=== PATIENT | female | born 1935 | race Caucasian/White ===

== ENCOUNTER 2017-05-30 12:12 | Inpatient (IN) ==
[2017-05-30] MEDS ORDERED: Ipratropium/Albuterol Neb 3 ML IH ONE (12:23)
[2017-05-30] MEDS ORDERED: Ibuprofen 800 MG TABLET PO ONE (12:23)
--- NOTE | 2017-05-30 12:40 | Emergency Department Note ---
Disposition Clinical Impression: Influenza, Shortness of breath Disposition: Admitted As Inpatient Condition: Fair Forms: ED Satisfaction Letter Time of Disposition: 14:09 General Adult HPI - General Chief complaint: ED Fever Stated complaint: SOB Time Seen by Provider: 05/30/17 12:20 Source: patient Limitations: no limitations Nursing Notes Reviewed: Yes Vital Signs Reviewed: Yes - History of Present Illness HPI Narrative: Patient is an 81-year-old female that presents to the emergency department for shortness of breath. She states that she was seen in the emergency department yesterday and was diagnosed with influenza. She states that she thought she was able to go home even though she was offered admission but states she has become more short of breath and had a fever of 101.9. Patient states that she has been coughing up yellow phlegm. She states that she was started on doxycycline yesterday. Patient states that she has been having diarrhea and nausea. Patient states that she called and talked to her fire hose curer who stated that she should come to the emergency department. Pain Scale: 0 - Related Data Previous Rx's Medication Instructions Recorded Benzonatate [Tessalon] 100 mg PO TID PRN #15 capsule 05/29/17 Doxycycline 100 mg PO BID #14 capsule 05/29/17 Allergies Allergy/AdvReac Type Severity Reaction Status Date / Time codeine Allergy See Verified 05/29/17 10:45 Comments moxifloxacin [From Avelox] Allergy See Verified 05/29/17 10:45 Comments sulfamethoxazole Allergy See Verified 05/29/17 10:45 [From Septra] Comments trimethoprim [From Septra] Allergy See Verified 05/29/17 10:45 Comments All systems ED: reviewed and negative except as stated. Constitutional: Reports: fever Respiratory: Reports: cough, dyspnea, sputum production Past Medical History - Past Medical History Medical history: Reports: asthma, pulmonary embolus, other Surgical history: Reports: non-contributory Psychiatric history: Reports: no psych history FRONT LOADER RESIDENTIAL DRIVER history: Reports: no FRONT LOADER RESIDENTIAL DRIVER history - Social History Smoking Status: Never smoker Smokeless Tobacco Status: No Alcohol use: Reports: none Drug use: Reports: none Physical Exam - General Limitations: no limitations General appearance: alert, in no apparent distress - Head Head exam: atraumatic, normocephalic - Eye Eye exam: Present: normal appearance, EOMI - Neck Neck exam: Present: normal inspection, full ROM, trachea midline - Respiratory Respiratory exam: Present: normal lung sounds bilaterally. Absent: respiratory distress, wheezes - Cardiovascular Cardiovascular exam: Present: normal rhythm, tachycardia, normal heart sounds, + S1, +S2 - Abdominal Exam Abdominal exam: Present: soft, Non-Tender, normal bowel sounds - Neurological Exam Neurological exam: Present: alert, oriented X3 - Psychiatric Psychiatric exam: Present: normal affect, normal mood - Skin Skin exam: Present: warm, dry, intact Course Vital Signs Temperature 100.9 F H 05/30/17 12:14 Pulse Rate 122 05/30/17 12:14 Respiratory Rate 26 05/30/17 12:14 Blood Pressure 136/68 05/30/17 12:14 O2 Sat by Pulse Oximetry 86 05/30/17 12:14 Temperature 100.9 F H 05/30/17 12:14 Pulse Rate 122 05/30/17 12:14 Respiratory Rate 26 05/30/17 12:14 Blood Pressure 136/68 05/30/17 12:14 O2 Sat by Pulse Oximetry 95 05/30/17 13:56 Oxygen Delivery Oxygen Delivery Room Air Medical Decision Making - MDM Narrative Medical decision making narrative: Due to the patient presented with shortness of breath and having recently been seen yesterday who ordered a CBC, BMP, BNP, troponin, chest x-ray and EKG. the patient tested positive for influenza yesterday. Patient has had worsening of her white count is now 17.8. Patient had an elevated BNP of 163 troponin was negative. Chest x-ray showed stable bronchiectasis. Due to patient having elevated white count, and respiratory symptoms we have started the patient on azithromycin and ceftriaxone. Due to the patient having an increase in her white count, being influenza positive and having increased shortness of breath the patient will need to be admitted to the hospital for further evaluation and management. I called and spoke to the hospitalist and they have accepted the patient to their service. The patient will be admitted to the hospital at this time. - Medical Records Medical records reviewed: Yes I reviewed the patient's medical records. - Lab Data Lab results reviewed: Yes I reviewed the patient's lab results. Result diagrams: 05/30/17 12:38 05/30/17 12:38 Lab Results 05/30/17 05/30/17 05/30/17 Range/Units 12:38 12:38 12:38 WBC 17.8 H D (4.3-11.1) K/mcL RBC 4.53 (3.82-4.97) M/mcL Hgb 12.6 (11.5-15.4) g/dL Hct 39.7 (35.3-44.9) % MCV 87.6 (83.0-100.0) fL MCH 27.8 L (28.0-33.3) pg MCHC 31.7 (31.6-35.5) g/dL RDW 15.1 H (11.5-14.5) % Plt Count 266 (140-400) K/mcL MPV 9.6 (9.4-12.4) fL Immature Gran % 0.5 (0-4) % Seg Neutrophils % 93.1 % Lymphocytes % 3.7 % Monocytes % 2.5 % Eosinophils % 0.0 % Basophils % 0.2 % Neutrophils # 16.6 H (1.6-8.9) K/mcL Lymphocytes # 0.7 (0.6-4.6) K/mcL Monocytes # 0.5 (0.0-1.3) K/mcL Eosinophils # 0.0 (0.0-0.6) K/mcL Basophils # 0.0 (0.0-0.2) K/mcL Sodium 133 L (136-145) mEq/L Potassium 3.6 (3.5-5.1) mEq/L Chloride 101 (98-107) mEq/L Carbon Dioxide 25 (23-29) mEq/L BUN 10 (8-23) mg/dL Creatinine 0.51 L (0.60-1.20) mg/dL Est GFR ( Amer) > 60 (> 60) Est GFR (Non-Af Amer) > 60 (> 60) BUN/Creatinine Ratio 20 (6-26) Glucose 98 (70-105) mg/dL Calculated Osmolality 275 L (280-300) Lactic Acid (0.5-2.2) mmol/L Calcium 8.8 (8.6-10.3) mg/dL Troponin I < 0.03 (< 0.04) ng/mL B-Natriuretic Peptide (Less than 100) pg/mL Urine Color (Yellow) Urine Clarity (Clear) Urine pH (5.0-8.0) pH Units Ur Specific [place] (1.010-1.025) Urine Protein (Neg-Trace) mg/dL Urine Glucose (UA) (Normal) mg/dL Urine Ketones (Negative) mg/dL Urine Blood (Negative) Urine Nitrite (Negative) Urine Bilirubin (Negative) Urine Urobilinogen (Normal) mg/dL Ur Leukocyte Esterase (Negative) Urine Microscopic RBC (0-3) per hpf Urine Microscopic WBC (0-3) per hpf Ur Squamous Epith Cells (None-Few) per lpf Urine Bacteria (None-Few) per hpf Hyaline Casts (None-Few) per lpf Ur Culture Indicated? (NO) 05/30/17 05/30/17 05/30/17 Range/Units 12:38 12:58 13:06 WBC (4.3-11.1) K/mcL RBC (3.82-4.97) M/mcL Hgb (11.5-15.4) g/dL Hct (35.3-44.9) % MCV (83.0-100.0) fL MCH (28.0-33.3) pg MCHC (31.6-35.5) g/dL RDW (11.5-14.5) % Plt Count (140-400) K/mcL MPV (9.4-12.4) fL Immature Gran % (0-4) % Seg Neutrophils % % Lymphocytes % % Monocytes % % Eosinophils % % Basophils % % Neutrophils # (1.6-8.9) K/mcL Lymphocytes # (0.6-4.6) K/mcL Monocytes # (0.0-1.3) K/mcL Eosinophils # (0.0-0.6) K/mcL Basophils # (0.0-0.2) K/mcL Sodium (136-145) mEq/L Potassium (3.5-5.1) mEq/L Chloride (98-107) mEq/L Carbon Dioxide (23-29) mEq/L BUN (8-23) mg/dL Creatinine (0.60-1.20) mg/dL Est GFR ( Amer) (> 60) Est GFR (Non-Af Amer) (> 60) BUN/Creatinine Ratio (6-26) Glucose (70-105) mg/dL Calculated Osmolality (280-300) Lactic Acid 1.2 (0.5-2.2) mmol/L Calcium (8.6-10.3) mg/dL Troponin I (< 0.04) ng/mL B-Natriuretic Peptide 163 H (Less than 100) pg/mL Urine Color Yellow (Yellow) Urine Clarity Clear (Clear) Urine pH 7.0 (5.0-8.0) pH Units Ur Specific [place] 1.013 (1.010-1.025) Urine Protein Negative (Neg-Trace) mg/dL Urine Glucose (UA) Normal (Normal) mg/dL Urine Ketones Negative (Negative) mg/dL Urine Blood Moderate H (Negative) Urine Nitrite Negative (Negative) Urine Bilirubin Negative (Negative) Urine Urobilinogen Normal (Normal) mg/dL Ur Leukocyte Esterase Negative (Negative) Urine Microscopic RBC 15-30 H (0-3) per hpf Urine Microscopic WBC 0-3 (0-3) per hpf Ur Squamous Epith Cells Many H (None-Few) per lpf Urine Bacteria None Seen (None-Few) per hpf Hyaline Casts None Seen (None-Few) per lpf Ur Culture Indicated? NO (NO) - Radiology Data Radiology results reviewed: Yes I reviewed the patient's radiology results. Chest X-Ray 05/30/17 12:23 IMPRESSION: Stable appearance of bilateral bronchiectasis and nodular infiltrates, comparing with exams dating back to 04/09/2016. Chronic pleural thickening and scarring at the left costophrenic angle. No definite acute abnormality. However, CT would be more sensitive examination. D/ / Bogdan Schuster MD / Bogdan Schuster MD Interpreting Provider: Bogdan Schuster MD - EKG Data EKG #1 EKG attestation: Yes I reviewed and interpreted this EKG. EKG results narrative: EKG shows sinus tachycardia at a rate of 112 bpm, P interval of 140, QRS duration 94, QTC of 370 with a normal to left axis. There is no staining noted on this EKG. It was compared to previous EKG on 05/29/17 which showed sinus tachycardia at 109 bpm
[2017-05-30 12:47] LABS: Basophils % 0.2 %; Hematocrit 39.7 % (35.3-44.9); Hemoglobin 12.6 g/dL (11.5-15.4); Immature Granulocytes % 0.5 % (0-4); Lymphocytes # 0.7 K/mcL (0.6-4.6); Lymphocytes % 3.7 %; Mean Corpuscular HGB Conc 31.7 g/dL (31.6-35.5); Mean Corpuscular Hemoglobin 27.8 pg (28.0-33.3); Mean Corpuscular Volume 87.6 fL (83.0-100.0); Mean Platelet Volume 9.6 fL (9.4-12.4); Monocytes # 0.5 K/mcL (0.0-1.3); Monocytes % 2.5 %; Neutrophils # 16.6 K/mcL (1.6-8.9); Platelet Count 266 K/mcL (140-400); Red Blood Count 4.53 M/mcL (3.82-4.97); Red Cell Distribution Width 15.1 % (11.5-14.5); Segmented Neutrophils % 93.1 %
[2017-05-30] MEDS ORDERED: Azithromycin 500 MG in D5% in Water 250 ML IVPB ONE (12:51)
[2017-05-30 13:03] LABS: BUN/Creatinine Ratio 20 (6-26); Blood Urea Nitrogen 10 mg/dL (8-23); Calcium 8.8 mg/dL (8.6-10.3); Carbon Dioxide 25 mEq/L (23-29); Chloride 101 mEq/L (98-107); Glucose 98 mg/dL (70-105); Osmolality,Calculated 275 (280-300); Potassium 3.6 mEq/L (3.5-5.1); Sodium 133 mEq/L (136-145); eGFR For African Americans > 60 (> 60); eGFR For Non-African Americans > 60 (> 60)
[2017-05-30 13:09] LABS: Bilirubin,Urine Negative (Negative); Blood,Urine Moderate (Negative); Clarity,Urine Clear (Clear); Color,Urine Yellow (Yellow); Glucose,Urine (UA) Normal (Normal); Ketones,Urine Negative (Negative); Leukocyte Esterase,Urine Negative (Negative); Nitrite,Urine Negative (Negative); Protein,Urine Negative (Neg-Trace); Specific Gravity,Urine 1.013 (1.010-1.025); Urobilinogen,Urine Normal (Normal)
[2017-05-30 13:12] LABS: Bacteria,Urine None Seen per hpf (None-Few); Hyaline Casts,Urine None Seen per lpf (None-Few); RBC,Urine 15-30 per hpf (0-3); Squamous Epithelial Cell,Urine Many per lpf (None-Few); WBC,Urine 0-3 per hpf (0-3)
[2017-05-30] MEDS ORDERED: methylPREDNISolone 125 MG/2 ML VIAL IVP ONE (13:41)
--- NOTE | 2017-05-30 13:43 | Emergency Department Note ---
START Narrative - START START: I examined this patient and my medical decision-making was reviewed with the Resident Physician. I agree with the documented findings, disposition and treatment plan as described except to the extent set forth below. 81-year-old female presents emergency room for shortness of breath. Patient was seen yesterday and diagnosed with flu. They wanted to admit the patient yesterday for hypoxia but she chose to go home. She returns today for worsening dyspnea. She does have a low-grade fever here likely secondary to her influenza as well as her infection in her lungs. I feel that her chest x- ray appeared to be worsening today as compared to yesterday. We gave her Rocephin and Zithromax that she had a fluoroquinolone allergy. Also give her steroids. Breathing treatments. Patient needs to be admitted as she is felt outpatient therapy.
[2017-05-30] MEDS ORDERED: Benzonatate 100 MG CAPSULE PO PRN (16:20)
[2017-05-30] MEDS ORDERED: Naloxone 0.4 MG/ML INJ IVP PRN (16:21)
--- NOTE | 2017-05-30 16:28 | Internal Med History&Physical ---
<Vito Rock - Last Filed: 05/30/17 16:48> Date of Encounter: 05/30/17 Time of Encounter: 16:26 Assessment and Plan (1) Sepsis Current visit: Yes Status: Acute 3 SIRS criteria met; tachycardia, tachypnea, leukocytosis. Bronchiectasis per chest x-ray, influenza A positive Hemodynamically stable, Sats 96% on 2LNC with mild SOB -Start emperic ATB therapy, Vanc, Levaquin, Zosyn -Hold tamiflu as symptom onset was Tuesday; no Tamiflu given in ED yesterday -Gentle IV rehydration; does not appear to be in shock 0.9% NS at 60ml/hr -Xopenex INH -Solumedrol 40mg Q8hr -CBCD, BMP in the am -Blood cultures sent- follow and adjust ATB as appropriate -Continue supportive care of influenza A -Start tamiflu now per CDC recommendations Qualifiers: Sepsis type: sepsis due to unspecified organism Qualified Code(s): A41.9 - Sepsis, unspecified organism (2) Bronchiectasis Current visit: Yes Status: Acute see plan above Qualifiers: Bronchiectasis type: with acute exacerbation Qualified Code(s): J47.1 - Bronchiectasis with (acute) exacerbation (3) Influenza A Current visit: Yes Status: Acute Presents with dyspnea, nonproductive cough tachypnea, fever and fatigue. Was at [facility] ED yesterday and diagnosed with influenza A. She was adamant about going home at that time however, returns today with increasing shortness of breath and fever. She reports symptoms onset Tuesday. -Continue supportive care at this time -Begin Tamiflu now as recommended per CDC -0.9% NS at 60ml/hr -Ibuprofen for fevers/pain -Continuous tele and spo2 monitoring (4) Shortness of breath Current visit: Yes Status: Acute see plan above (5) DVT prophylaxis Current visit: Yes Status: Acute Heparin 5000 units SC BID Internal Medicine - H&P: HPI Chief complaint: dyspnea, fatigue, flu-a positive Admitted From: Home Plans for Post Hospital Care: Home History of present illness: Ms. Johnson is a 81 year old female with a PMH of asthma and bronchiectasis presents to the emergency department today for dyspnea. She states that she was seen yesterday at [facility] and diagnosed influenza A. She thought that she was able to go home and did not need admission at that time. However, she returns today with increasing shortness of breath and a fever of 101.9. She states that last night she began to cough more frequently and was coughing up yellow phlegm. She admits to fever, fatigue, cough. Denies chills, rigors, nausea, vomiting, diarrhea, abdominal pain. Past Med Surg Social Fam HX - Past Medical History Medical history: asthma, pulmonary embolus, other Psychiatric history: no psych history - Past Surgical History Surgical History: non-contributory - Social History Smoking Status: Never smoker Smokeless Tobacco Status: No Alcohol use: none Drug use: none - Additional Family History Additional family history: Noncontributory Internal Medicine - H&P: Meds Benzonatate [Tessalon] 100 mg PO TID PRN #15 capsule 05/29/17 [Rx] Doxycycline 100 mg PO BID #14 capsule 05/29/17 [Rx] Albuterol Neb [AccuNeb] 1.25 mg IH DAILY PRN 05/30/17 [History] Albuterol Sulfate [Proair Hfa] 1 puff IH DAILY PRN 05/30/17 [History] Azithromycin [Azithromycin] 1 tab PO AD 05/30/17 [History] Fluticasone/Salmeterol [Advair 250-50 Diskus] 1 puff IH DAILY 05/30/17 [History] predniSONE [PredniSONE] 20 mg PO BID 05/30/17 [History] 3 Allergy/AdvReac Type Severity Reaction Status Date / Time codeine Allergy See Verified 05/29/17 10:45 Comments moxifloxacin [From Avelox] Allergy See Verified 05/29/17 10:45 Comments sulfamethoxazole Allergy See Verified 05/29/17 10:45 [From Septra] Comments trimethoprim [From Septra] Allergy See Verified 05/29/17 10:45 Comments All Systems PM: A 10-system review of systems was performed and is negative for pertinent findings except as documented above in the HPI. - Constitutional Constitutional: as per HPI, fatigue, fever(s), no chills - EENT Eyes: as per HPI - Cardiovascular Cardiovascular ROS IM: dyspnea, dyspnea on exertion, no chest pain, no diaphoresis, no edema, no irregular heart rhythm, no lightheadedness, no palpitations, no syncope - Respiratory Respiratory: as per HPI, cough, dyspnea, dyspnea on exertion, no hemoptysis - Gastrointestinal Gastrointestinal: no abdominal pain, no diarrhea, no hematemesis, no hematochezia, no melena, no nausea, no vomiting - Genitourinary Genitourinary: no change in urinary stream, no dysuria, no flank pain, no hematuria - Musculoskeletal Musculoskeletal ROS IM: no arthralgias, no myalgias, no numbness, no tingling - Integumentary Integumentary IM: no rash, no unusual bruising - Neurological Neurological ROS: no confusion, no convulsions, no focal weakness, no numbness, no tingling, no tremor(s) - Hematologic/Lymphatic Hematologic/Lymphatic: no easy bruising - Constitutional Vitals: Temp Pulse Resp BP Pulse Ox 97.9 F 100 16 115/62 94 05/30/17 15:21 05/30/17 15:21 05/30/17 15:21 05/30/17 15:21 05/30/17 15:21 General appearance: Present: cooperative, mild distress, A&O X 3, answers questions appropriately - Head Head exam: Present: atraumatic, normocephalic - Eye Eye exam: Present: PERRL, conjuntiva pink, sclera anicteric Pupils: Present: PERRL - Neck Neck exam general surgery: Present: supple, trachea midline. Absent: lymphadenopathy - Respiratory Respiratory exam: Present: decreased breath sounds, CTAB, wheezes (I&E ), tachypnea (shallow without accessory use; on 2LNC in no distress). Absent: accessory muscle use, rales, rhonchi - Cardiovascular Cardiovascular exam: Present: RRR, +S1, +S2. Absent: bradycardia, diastolic murmur, distant heart sounds, gallop, irregular rhythm, JVD, rubs, systolic murmur - GI/Abdominal GI/Abdominal exam: Present: normal bowel sounds, soft, no peritoneal signs. Absent: distended, tenderness - Extremities Exam Extremities exam: Present: warm, radial pulses palpable and symmetrical. Absent : calf tenderness, cyanotic, pedal edema - Neurological Exam Neurological exam: Present: CN II-XII intact, oriented X3, no focal deficits. Absent: pronater drift, facial droop, speech deficit - Skin Skin exam: Present: dry, intact Internal Med - H&P Results - Labs CBC & Chem 7: 05/30/17 12:38 05/30/17 12:38 - Diagnostic Studies Chest x-ray Status: image reviewed by me Additional comments: Stable appearance of bilateral bronchiectasis and nodular infiltrates, comparing with exams dating back to 04/09/2016. Chronic pleural thickening and scarring at the left costophrenic angle. No definite acute abnormality. However, CT would be more sensitive examination. <Alfredo Guillen P - Last Filed: 06/02/17 12:21> Date of Encounter: 06/02/17 Internal Medicine - H&P: HPI History of present illness: Ms. Johnson is a 81 year old female Past Med Surg Social Fam HX - Family History Mother Hx Family Cardiac Disorders: Yes (mi cva) Sister Living Status: Still Living Hx Family Cardiac Disorders: Yes (htn) All Systems PM: A 10-system review of systems was performed and is negative for pertinent findings except as documented above in the HPI. - Constitutional Vitals: Temp Pulse Resp BP Pulse Ox 98.8 F 86 18 174/66 90 06/02/17 10:49 06/02/17 10:49 06/02/17 10:49 06/02/17 10:49 06/02/17 10:49 Internal Med - H&P Results - Labs CBC & Chem 7: 06/02/17 06:48 06/02/17 06:48 Labs: Short CBC 06/02/17 Range/Units 06:48 WBC 14.5 H (4.3-11.1) K/mcL Hgb 11.7 (11.5-15.4) g/dL Hct 36.5 (35.3-44.9) % Plt Count 254 (140-400) K/mcL Neutrophils # 13.7 H (1.6-8.9) K/mcL BMP 06/02/17 06:48 Sodium 142 Potassium 3.4 L Chloride 105 Carbon Dioxide 31 H BUN 7 L Creatinine 0.46 L Glucose 141 H Calcium 8.7 - Impressions ITS Impressions Chest CTA 06/01/17 17:53 IMPRESSION: 1. No evidence of pulmonary embolism or aortic dissection. 2. Continued evidence of extensive bronchiectasis, the distribution and severity of which appears similar when compared to the previous exam. 3. The only notable changed when compared to the previous exam, is interval development of more numerable centrilobular punctate nodules identified within the lower lungs bilaterally, suggesting inflammatory or infectious bronchiolitis. D/ / Zelalem Miller MD / Zelalem Miller MD Interpreting Provider: Zelalem Miller MD Echocardiogram 06/02/17 08:51 Impressions: LVEF 65%. Normal LV chamber size, wall thickness and function. Mild left ventricular diastolic dysfunction. Normal right ventricular structure and function. Mild pulmonary hypertension. Estimated RVSP is 39 mmHg. No significant valvular dysfunction. Left Ventricular Wall Motion: Rest Echo Findings All wall segments showed normal motion. Findings: Study Quality * Technically adequate exam. ECG Findings * Normal sinus rhythm. Left Ventricle * LVEF 65%. * Normal LV chamber size, wall thickness and function. * Mild left ventricular diastolic dysfunction. Right Ventricle * Normal right ventricular structure and function. Left Atrium * Mildly dilated left atrium. Right Atrium * Normal right atrial size. Interatrial Septum * Interatrial septum not well evaluated. Aortic Valve * Trileaflet aortic valve. * Mildly calcified aortic valve leaflets. * No aortic regurgitation. * No aortic stenosis. Mitral Valve * Mild posterior mitral annular calcification. Normal mitral valve function. * No mitral stenosis. * No mitral regurgitation. Tricuspid Valve * Normal tricuspid valve structure and function. * Trace tricuspid regurgitation. * Mild pulmonary hypertension. * Estimated RVSP is 39 mmHg. * Estimated RA pressure is 5 mmHg. Pulmonic Valve * Normal pulmonic valve structure and function. * Trace pulmonic regurgitation. Aorta * Normally sized aortic root. Pericardium * The pericardium appears normal. IVC * Normal IVC dimensions and inspiratory collapse. Pulmonary Artery * Normal visualized portions of the main pulmonary artery. - Attending Attestation I examined this patient and my medical decision-making was reviewed with the Resident Physician/SELF STORAGE MANAGER. I agree with the documented findings, disposition and treatment plan as described except to the extent set forth below.
[2017-05-30] MEDS ORDERED: Vancomycin 750 MG in D5% in Water 250 ML IVPB SCH (17:00)
[2017-05-30] MEDS ORDERED: Piperacillin/Tazobactam 3.375 GM/200 ML BAG IVPB SCH (18:00)
[2017-05-30] MEDS: 0.9 % Sodium Chloride 1,000 ML IVC SCH (20:22)
[2017-05-30] MEDS: Vancomycin 750 MG in D5% in Water 250 ML IVPB SCH (20:23)
[2017-05-30] MEDS: *HR* Heparin 5,000 UNIT/ML VIAL SQ SCH (20:23)
[2017-05-30] MEDS: Piperacillin/Tazobactam 3.375 GM/200 ML BAG IVPB SCH (22:15)
[2017-05-30] MEDS: Levalbuterol Neb 1.25 MG/3 ML IH SCH (22:58)
[2017-05-31] MEDS: MethylPREDNISolone 40 MG/ML VIAL IVP SCH ×3 (00:04→18:12)
[2017-05-31] MEDS: Levalbuterol Neb 1.25 MG/3 ML IH SCH ×4 (04:14→22:21)
[2017-05-31] MEDS: Piperacillin/Tazobactam 3.375 GM/200 ML BAG IVPB SCH ×3 (05:10→19:55)
[2017-05-31] MEDS: *HR* Heparin 5,000 UNIT/ML VIAL SQ SCH ×2 (05:10→18:12)
[2017-05-31 05:48] LABS: Basophils % 0.1 %; Hematocrit 39.3 % (35.3-44.9); Hemoglobin 12.5 g/dL (11.5-15.4); Immature Granulocytes % 0.4 % (0-4); Lymphocytes # 0.3 K/mcL (0.6-4.6); Lymphocytes % 1.9 %; Mean Corpuscular HGB Conc 31.8 g/dL (31.6-35.5); Mean Corpuscular Volume 87.9 fL (83.0-100.0); Mean Platelet Volume 9.9 fL (9.4-12.4); Monocytes # 0.1 K/mcL (0.0-1.3); Monocytes % 0.9 %; Neutrophils # 15.4 K/mcL (1.6-8.9); Platelet Count 239 K/mcL (140-400); Red Blood Count 4.47 M/mcL (3.82-4.97); Red Cell Distribution Width 14.9 % (11.5-14.5); Segmented Neutrophils % 96.7 %
[2017-05-31 06:05] LABS: BUN/Creatinine Ratio 23 (6-26); Blood Urea Nitrogen 12 mg/dL (8-23); Calcium 8.8 mg/dL (8.6-10.3); Carbon Dioxide 29 mEq/L (23-29); Chloride 103 mEq/L (98-107); Glucose 129 mg/dL (70-105); Osmolality,Calculated 291 (280-300); Potassium 3.7 mEq/L (3.5-5.1); Sodium 140 mEq/L (136-145); eGFR For African Americans > 60 (> 60); eGFR For Non-African Americans > 60 (> 60)
--- NOTE | 2017-05-31 07:36 | Electrocardiograph Report ---
[facility] Test Date: 2017-05-30 Pat Name: Jacques Johnson Department: [id number] Room: 3B49 Gender: F [employer]p [employer]: : 1935 Requested By: Nate Herrera Order Number: [id number] Reading MD: Karla Fan DO Measurements Intervals [place] Rate: 112 P: 152 [place]: 142 QRS: 21 QRSD: 94 T: 147 QT: 304 QTc: 370 Interpretive Statements ECTOPIC ATRIAL TACHYCARDIA LEFT ATRIAL ENLARGEMENT [-0.15mV P WAVE IN V1/V2] LOW QRS VOLTAGE IN EXTREMITY LEADS [QRS DEFLECTION < 0.5 mV IN LIMB LEADS] POSSIBLE ANTERIOR MYOCARDIAL INFARCTION [30 ms Q WAVE IN V3/V4, OR R < 0.2 mV IN V4], OF INDETERMINATE AGE Electronically Signed On 05-31-2017 7:34:12 EST by Karla Fan DO
[2017-05-31] MEDS: Vancomycin 750 MG in D5% in Water 250 ML IVPB SCH (08:08)
[2017-05-31] MEDS: Levofloxacin 500 MG/100 ML 500 MG/100 ML BAG IVPB SCH (08:09)
--- NOTE | 2017-05-31 15:39 | Internal Med Progress Note ---
Date of Encounter: 05/31/17 Time of Encounter: 15:37 - Assessment and plan (1) Sepsis Current Visit: Yes Status: Acute Assessment and plan: 3 SIRS criteria met; tachycardia, tachypnea, leukocytosis. Bronchiectasis per chest x-ray, influenza A positive Hemodynamically stable, Sats 96% on 2LNC with mild SOB -Continue emperic ATB therapy, Vanc, Levaquin, Zosyn -Gentle IV rehydration; does not appear to be in shock 0.9% NS at 60ml/hr - HOLD -Xopenex INH -Solumedrol 40mg Q8hr -Blood cultures sent- follow and adjust ATB as appropriate -Hold IVF for now. -Continue supportive care of influenza A -Continue tamiflu now per CDC recommendations Qualifiers: Sepsis type: sepsis due to unspecified organism Qualified Code(s): A41.9 - Sepsis, unspecified organism (2) Influenza A Current Visit: Yes Status: Acute Assessment and plan: Presents with dyspnea, nonproductive cough tachypnea, fever and fatigue. Was at [facility] ED yesterday and diagnosed with influenza A. She was adamant about going home at that time however, returns today with increasing shortness of breath and fever. She reports symptoms onset Tuesday. -Continue supportive care at this time -Begin Tamiflu now as recommended per CDC -0.9% NS at 60ml/hr -Ibuprofen for fevers/pain -Continuous tele and spo2 monitoring (3) Bronchiectasis Current Visit: Yes Status: Acute Qualifiers: Bronchiectasis type: with acute exacerbation Qualified Code(s): J47.1 - Bronchiectasis with (acute) exacerbation (4) Shortness of breath Current Visit: Yes Status: Acute (5) DVT prophylaxis Current Visit: Yes Status: Acute - Subjective Interval history: Patient states she is feeling fine. She denies any SOB, but she is more active at home. She denies fevers/chills, n.v, headache, rigors. - Constitutional Vitals: Temp Pulse Resp BP Pulse Ox 99.1 F 89 16 137/66 90 05/31/17 15:10 05/31/17 15:10 05/31/17 15:10 05/31/17 15:10 05/31/17 15:10 General appearance: Present: cooperative, mild distress, A&O X 3, answers questions appropriately Exam: - Head Head exam: Present: atraumatic, normocephalic - Eye Eye exam: Present: PERRL, conjuntiva pink, sclera anicteric Pupils: Present: PERRL - Neck Neck exam general surgery: Present: supple, trachea midline. Absent: lymphadenopathy - Respiratory Respiratory exam: Present: decreased breath sounds, CTAB, wheezes (expiratory ) . Course breath sounds in lower lung cano Absent: accessory muscle use, rhonchi, no tachypnea - Cardiovascular Cardiovascular exam: Present: RRR, +S1, +S2. Absent: bradycardia, diastolic murmur, distant heart sounds, gallop, irregular rhythm, JVD, rubs, systolic murmur - GI/Abdominal GI/Abdominal exam: Present: normal bowel sounds, soft, no peritoneal signs. Absent: distended, tenderness - Extremities Exam Extremities exam: Present: warm, radial pulses palpable and symmetrical. Absent : calf tenderness, cyanotic, pedal edema - Neurological Exam Neurological exam: Present: CN II-XII intact, oriented X3, no focal deficits. Absent: pronater drift, facial droop, speech deficit - Skin Skin exam: Present: dry, intact Internal Medicine: Result - Labs CBC & Chem 7: 05/31/17 05:24 05/31/17 05:24 Labs: Short CBC 05/31/17 Range/Units 05:24 WBC 15.9 H (4.3-11.1) K/mcL Hgb 12.5 (11.5-15.4) g/dL Hct 39.3 (35.3-44.9) % Plt Count 239 (140-400) K/mcL Neutrophils # 15.4 H (1.6-8.9) K/mcL BMP 05/31/17 05:24 Sodium 140 Potassium 3.7 Chloride 103 Carbon Dioxide 29 BUN 12 Creatinine 0.52 L Glucose 129 H Calcium 8.8 Consult Discharge Plan - Plan Referrals: Chencho Lopez DO [Primary Care Provider] -
[2017-05-31] MEDS: Ibuprofen 400 MG TABLET PO PRN (19:53)
[2017-05-31] MEDS: Oseltamivir Phosphate 30 MG CAPSULE PO SCH (19:54)
[2017-06-01] MEDS: MethylPREDNISolone 40 MG/ML VIAL IVP SCH ×4 (00:29→23:46)
[2017-06-01] MEDS: Levalbuterol Neb 1.25 MG/3 ML IH SCH ×4 (03:47→21:01)
[2017-06-01] MEDS: 0.9 % Sodium Chloride 1,000 ML IVC SCH (04:09)
[2017-06-01] MEDS: Piperacillin/Tazobactam 3.375 GM/200 ML BAG IVPB SCH ×3 (04:43→19:49)
[2017-06-01] MEDS: *HR* Heparin 5,000 UNIT/ML VIAL SQ SCH (04:43)
[2017-06-01 07:18] LABS: Hematocrit 37.2 % (35.3-44.9); Hemoglobin 11.8 g/dL (11.5-15.4); Mean Corpuscular HGB Conc 31.7 g/dL (31.6-35.5); Mean Corpuscular Hemoglobin 28.2 pg (28.0-33.3); Mean Corpuscular Volume 88.8 fL (83.0-100.0); Mean Platelet Volume 10.4 fL (9.4-12.4); Platelet Count 262 K/mcL (140-400); Red Blood Count 4.19 M/mcL (3.82-4.97); Red Cell Distribution Width 15.3 % (11.5-14.5)
[2017-06-01 07:40] LABS: BUN/Creatinine Ratio 21 (6-26); Blood Urea Nitrogen 11 mg/dL (8-23); Calcium 8.7 mg/dL (8.6-10.3); Carbon Dioxide 30 mEq/L (23-29); Chloride 107 mEq/L (98-107); Glucose 147 mg/dL (70-105); Osmolality,Calculated 296 (280-300); Potassium 3.4 mEq/L (3.5-5.1); Sodium 142 mEq/L (136-145); eGFR For African Americans > 60 (> 60); eGFR For Non-African Americans > 60 (> 60)
[2017-06-01] MEDS: Vancomycin 750 MG in D5% in Water 250 ML IVPB SCH (07:50)
[2017-06-01] MEDS: Oseltamivir Phosphate 30 MG CAPSULE PO SCH ×2 (07:51→19:51)
[2017-06-01 07:58] LABS: Neutrophils # 16.1 K/mcL (1.6-8.9); Platelet Estimate Normal (Normal)
[2017-06-01] MEDS: Levofloxacin 500 MG/100 ML 500 MG/100 ML BAG IVPB SCH (09:08)
--- NOTE | 2017-06-01 17:49 | Internal Med Progress Note ---
Date of Encounter: 06/01/17 Time of Encounter: 17:47 - Assessment and plan (1) Sepsis Current Visit: Yes Status: Acute Assessment and plan: 3 SIRS criteria met; tachycardia, tachypnea, leukocytosis. Bronchiectasis per chest x-ray, influenza A positive Hemodynamically stable, Sats 96% on 2LNC with mild SOB -Continue emperic ATB therapy, Vanc, Levaquin, Zosyn -Gentle IV rehydration; does not appear to be in shock 0.9% NS at 60ml/hr - HOLD -Xopenex INH -Solumedrol 40mg Q8hr -Blood cultures sent- follow and adjust ATB as appropriate -Hold IVF for now. -Continue supportive care of influenza A -Continue tamiflu now per CDC recommendations Qualifiers: Sepsis type: sepsis due to unspecified organism Qualified Code(s): A41.9 - Sepsis, unspecified organism (2) Acute respiratory failure with hypoxia Current Visit: Yes Status: Acute Assessment and plan: Continue Abx therapy. Wean O2 as tolerated. Follow-up respiratory studies. Will obtain CTA chest since she has little improvement, will need to rule out PE , also need better chest imaging.. (3) Influenza A Current Visit: Yes Status: Acute Assessment and plan: Presents with dyspnea, nonproductive cough tachypnea, fever and fatigue. Was at [facility] ED yesterday and diagnosed with influenza A. She was adamant about going home at that time however, returns today with increasing shortness of breath and fever. She reports symptoms onset Tuesday. -Continue supportive care at this time -Begin Tamiflu now as recommended per CDC -0.9% NS at 60ml/hr -Ibuprofen for fevers/pain -Continuous tele and spo2 monitoring (4) Bronchiectasis Current Visit: Yes Status: Acute Qualifiers: Bronchiectasis type: with acute exacerbation Qualified Code(s): J47.1 - Bronchiectasis with (acute) exacerbation (5) Shortness of breath Current Visit: Yes Status: Acute Assessment and plan: Wean O2 as tolerated. (6) DVT prophylaxis Current Visit: Yes Status: Acute Assessment and plan: Stop heparin, change to SCD because of bleeding at SQ heparin injection site. - Subjective Interval history: Patient states she is feeling fine. She denies any SOB, but she is more active at home. She denies fevers/chills, n.v, headache, rigors. - Constitutional Vitals: Temp Pulse Resp BP Pulse Ox 98.2 F 82 16 143/69 96 06/01/17 15:42 06/01/17 15:42 06/01/17 17:16 06/01/17 15:42 06/01/17 17:16 General appearance: Present: cooperative, mild distress, A&O X 3, answers questions appropriately Exam: - Head Head exam: Present: atraumatic, normocephalic - Eye Eye exam: Present: PERRL, conjuntiva pink, sclera anicteric Pupils: Present: PERRL - Neck Neck exam general surgery: Present: supple, trachea midline. Absent: lymphadenopathy - Respiratory Respiratory exam: Present: decreased breath sounds, CTAB, wheezes (expiratory ) . Course breath sounds in lower lung cano Absent: accessory muscle use, rhonchi, no tachypnea - Cardiovascular Cardiovascular exam: Present: RRR, +S1, +S2. Absent: bradycardia, diastolic murmur, distant heart sounds, gallop, irregular rhythm, JVD, rubs, systolic murmur - GI/Abdominal GI/Abdominal exam: Present: normal bowel sounds, soft, no peritoneal signs. Absent: distended, tenderness - Extremities Exam Extremities exam: Present: warm, radial pulses palpable and symmetrical. Absent : calf tenderness, cyanotic, pedal edema - Neurological Exam Neurological exam: Present: CN II-XII intact, oriented X3, no focal deficits. Absent: pronater drift, facial droop, speech deficit - Skin Skin exam: Present: dry, intact Internal Medicine: Result - Labs CBC & Chem 7: 06/01/17 05:41 06/01/17 05:41 Labs: Short CBC 06/01/17 Range/Units 05:41 WBC 16.1 H (4.3-11.1) K/mcL Hgb 11.8 (11.5-15.4) g/dL Hct 37.2 (35.3-44.9) % Plt Count 262 (140-400) K/mcL Neutrophils # 16.1 H (1.6-8.9) K/mcL BMP 06/01/17 05:41 Sodium 142 Potassium 3.4 L Chloride 107 Carbon Dioxide 30 H BUN 11 Creatinine 0.52 L Glucose 147 H Calcium 8.7 - VTE Documentation of Mechanical Device: Intermittent pneumatic compression device Consult Discharge Plan - Plan Referrals: Chencho Lopez DO [Primary Care Provider] -
[2017-06-01] MEDS: Ibuprofen 400 MG TABLET PO PRN (19:50)
[2017-06-02] MEDS: Levalbuterol Neb 1.25 MG/3 ML IH SCH ×4 (03:48→22:20)
[2017-06-02] MEDS: Piperacillin/Tazobactam 3.375 GM/200 ML BAG IVPB SCH ×3 (06:22→20:32)
[2017-06-02 07:15] LABS: Basophils % 0.1 %; Hematocrit 36.5 % (35.3-44.9); Hemoglobin 11.7 g/dL (11.5-15.4); Immature Granulocytes % 0.5 % (0-4); Lymphocytes # 0.3 K/mcL (0.6-4.6); Lymphocytes % 2.1 %; Mean Corpuscular HGB Conc 32.1 g/dL (31.6-35.5); Mean Corpuscular Hemoglobin 28.3 pg (28.0-33.3); Mean Corpuscular Volume 88.4 fL (83.0-100.0); Mean Platelet Volume 9.9 fL (9.4-12.4); Monocytes # 0.4 K/mcL (0.0-1.3); Monocytes % 2.9 %; Neutrophils # 13.7 K/mcL (1.6-8.9); Platelet Count 254 K/mcL (140-400); Red Blood Count 4.13 M/mcL (3.82-4.97); Red Cell Distribution Width 15.2 % (11.5-14.5); Segmented Neutrophils % 94.4 %
[2017-06-02 08:02] LABS: BUN/Creatinine Ratio 15 (6-26); Blood Urea Nitrogen 7 mg/dL (8-23); Calcium 8.7 mg/dL (8.6-10.3); Carbon Dioxide 31 mEq/L (23-29); Chloride 105 mEq/L (98-107); Glucose 141 mg/dL (70-105); Osmolality,Calculated 294 (280-300); Potassium 3.4 mEq/L (3.5-5.1); Sodium 142 mEq/L (136-145); eGFR For African Americans > 60 (> 60); eGFR For Non-African Americans > 60 (> 60)
[2017-06-02] MEDS: Vancomycin 750 MG in D5% in Water 250 ML IVPB SCH ×2 (08:35→17:58)
[2017-06-02] MEDS: MethylPREDNISolone 40 MG/ML VIAL IVP SCH ×3 (08:35→23:35)
[2017-06-02] MEDS: Oseltamivir Phosphate 30 MG CAPSULE PO SCH ×2 (08:36→20:34)
[2017-06-02] MEDS ORDERED: Potassium Chloride Elixir 20 MEQ/15 ML UDC PO ONE (08:47)
[2017-06-02] MEDS ORDERED: Acetylcysteine 10% 2 ML INHSOL IH ONE (08:48)
[2017-06-02] MEDS ORDERED: Furosemide 20 MG/2 ML VIAL IVP ONE (08:50)
[2017-06-02] MEDS: Levofloxacin 500 MG/100 ML 500 MG/100 ML BAG IVPB SCH (11:58)
--- NOTE | 2017-06-02 12:16 | Internal Med Progress Note ---
Date of Encounter: 06/02/17 Time of Encounter: 12:14 - Assessment and plan (1) Acute respiratory failure with hypoxia Current Visit: Yes Status: Acute Assessment and plan: CTA showed no PE, extensive bronchiectasis which has been noted on prior imaging , mucus plugging and increase in centrilobular punctate nodules in lower lobes. She received 2.9 IVF since admission, may have fluid overload component. Echocardiogram showed normal LVEF, mild pulmonary hypertension, mild LV diastolic dysfunction. She states she has history of hemoptysis and is known to to Pulmonology group. Continue emperic antibiotic therapy. Levaquin used to cover atypicals, will switch to azithromycin to avoid nephrotoxicity. Wean O2 as tolerated One dose of IV Lasix 20 mg today, and monitor I/O. Follow-up respiratory cultures. Mucinex and continue aerosol treatment for mucus plugging. Consult Pulmonology (2) Sepsis Current Visit: Yes Status: Acute Assessment and plan: 3 SIRS criteria met; tachycardia, tachypnea, leukocytosis. Bronchiectasis per chest x-ray, influenza A positive -Continue emperic ATB therapy, Vanc, Levaquin, Zosyn -Xopenex INH -Solumedrol 40mg Q8hr -Blood cultures sent- follow and adjust ATB as appropriate -Continue supportive care of influenza A -Continue tamiflu now per CDC recommendations Qualifiers: Sepsis type: sepsis due to unspecified organism Qualified Code(s): A41.9 - Sepsis, unspecified organism (3) Influenza A Current Visit: Yes Status: Acute Assessment and plan: Presents with dyspnea, nonproductive cough tachypnea, fever and fatigue. Was at [facility] ED yesterday and diagnosed with influenza A. She was adamant about going home at that time however, returns today with increasing shortness of breath and fever. She reports symptoms onset Tuesday. -Continue supportive care at this time -Tamiflu as recommended per CDC -Ibuprofen for fevers/pain -Continuous tele and spo2 monitoring (4) Bronchiectasis Current Visit: Yes Status: Acute Assessment and plan: Consult Pulmonology Qualifiers: Bronchiectasis type: with acute exacerbation Qualified Code(s): J47.1 - Bronchiectasis with (acute) exacerbation (5) DVT prophylaxis Current Visit: Yes Status: Acute Assessment and plan: Stop heparin, change to SCD because of bleeding at SQ heparin injection site. - Subjective Interval history: Attempted to wean patient O2 overnight she became dyspneic. Supplemental O2 resumed. - Constitutional Vitals: Temp Pulse Resp BP Pulse Ox 98.8 F 86 18 174/66 90 06/02/17 10:49 06/02/17 10:49 06/02/17 10:49 06/02/17 10:49 06/02/17 10:49 General appearance: Present: cooperative, mild distress, A&O X 3, answers questions appropriately Exam: - Head Head exam: Present: atraumatic, normocephalic - Eye Eye exam: Present: PERRL, conjuntiva pink, sclera anicteric Pupils: Present: PERRL - Neck Neck exam general surgery: Present: supple, trachea midline. Absent: lymphadenopathy - Respiratory Respiratory exam: Present: decreased breath sounds, CTAB, wheezes (expiratory ) . Course breath sounds in lower lung cano mostly Absent: accessory muscle use , rhonchi, no tachypnea - Cardiovascular Cardiovascular exam: Present: RRR, +S1, +S2. Absent: bradycardia, diastolic murmur, distant heart sounds, gallop, irregular rhythm, JVD, rubs, systolic murmur - GI/Abdominal GI/Abdominal exam: Present: normal bowel sounds, soft, no peritoneal signs. Absent: distended, tenderness - Extremities Exam Extremities exam: Present: warm, radial pulses palpable and symmetrical. Absent : calf tenderness, cyanotic, pedal edema - Neurological Exam Neurological exam: Present: CN II-XII intact, oriented X3, no focal deficits. Absent: pronater drift, facial droop, speech deficit - Skin Skin exam: Present: dry, intact Internal Medicine: Result - Labs CBC & Chem 7: 06/02/17 06:48 06/02/17 06:48 Labs: Short CBC 06/02/17 Range/Units 06:48 WBC 14.5 H (4.3-11.1) K/mcL Hgb 11.7 (11.5-15.4) g/dL Hct 36.5 (35.3-44.9) % Plt Count 254 (140-400) K/mcL Neutrophils # 13.7 H (1.6-8.9) K/mcL BMP 06/02/17 06:48 Sodium 142 Potassium 3.4 L Chloride 105 Carbon Dioxide 31 H BUN 7 L Creatinine 0.46 L Glucose 141 H Calcium 8.7 - Impressions Impressions Chest CTA 06/01/17 17:53 IMPRESSION: 1. No evidence of pulmonary embolism or aortic dissection. 2. Continued evidence of extensive bronchiectasis, the distribution and severity of which appears similar when compared to the previous exam. 3. The only notable changed when compared to the previous exam, is interval development of more numerable centrilobular punctate nodules identified within the lower lungs bilaterally, suggesting inflammatory or infectious bronchiolitis. D/ / Zelalem Miller MD / Zelalem Miller MD Interpreting Provider: Zelalem Miller MD Echocardiogram 06/02/17 08:51 Impressions: LVEF 65%. Normal LV chamber size, wall thickness and function. Mild left ventricular diastolic dysfunction. Normal right ventricular structure and function. Mild pulmonary hypertension. Estimated RVSP is 39 mmHg. No significant valvular dysfunction. Left Ventricular Wall Motion: Rest Echo Findings All wall segments showed normal motion. Findings: Study Quality * Technically adequate exam. ECG Findings * Normal sinus rhythm. Left Ventricle * LVEF 65%. * Normal LV chamber size, wall thickness and function. * Mild left ventricular diastolic dysfunction. Right Ventricle * Normal right ventricular structure and function. Left Atrium * Mildly dilated left atrium. Right Atrium * Normal right atrial size. Interatrial Septum * Interatrial septum not well evaluated. Aortic Valve * Trileaflet aortic valve. * Mildly calcified aortic valve leaflets. * No aortic regurgitation. * No aortic stenosis. Mitral Valve * Mild posterior mitral annular calcification. Normal mitral valve function. * No mitral stenosis. * No mitral regurgitation. Tricuspid Valve * Normal tricuspid valve structure and function. * Trace tricuspid regurgitation. * Mild pulmonary hypertension. * Estimated RVSP is 39 mmHg. * Estimated RA pressure is 5 mmHg. Pulmonic Valve * Normal pulmonic valve structure and function. * Trace pulmonic regurgitation. Aorta * Normally sized aortic root. Pericardium * The pericardium appears normal. IVC * Normal IVC dimensions and inspiratory collapse. Pulmonary Artery * Normal visualized portions of the main pulmonary artery. - VTE Documentation of Mechanical Device: Intermittent pneumatic compression device Consult Discharge Plan - Plan Referrals: Chencho Lopez DO [Primary Care Provider] -
[2017-06-02] MEDS: Azithromycin 500 MG in D5% in Water 250 ML IVPB SCH (17:52)
--- NOTE | 2017-06-02 18:07 | Pulmonology Consult Note ---
Date of Encounter: 06/02/17 Time of Encounter: 17:30 Assessment and Plan (1) Bronchiectasis Current Visit: Yes Status: Acute Patient known to have bronchiectasis and she is being treated appropriately and clinically she has improvement in her symptoms. I would recommend to de- escalation her broad-spectrum antibiotics if cultures remain negative and I explained to her plan of care. Patient is on appropriate inhalers and she will need follow-up as outpatient when she is discharged from the hospital in 4-6 weeks. I will add Symbicort as a bronchodilator for her treatment. Qualifiers: Bronchiectasis type: with acute exacerbation Qualified Code(s): J47.1 - Bronchiectasis with (acute) exacerbation (2) Acute respiratory failure with hypoxia Current Visit: Yes Status: Acute Patient is feeling better and wean off FiO2 to keep SPO2 around 90%. History of Present Illness Consult date: 06/02/17 Requesting physician: Steffanie Friend Reason for consult: pneumonia Chief complaint: Dyspnea and fatigue History of present illness: This is a very pleasant 81 years old female with significant history of bronchiectasis or presented to emergency room with worsening dyspnea. Patient stated she had fever and she had diagnosis of influenza A. Patient stated she had some productive cough and wheezing but no hemoptysis and she was treated with broad-spectrum antibiotic with improvement clinically. Patient is feeling better and she denies any fever or chills at this time. Patient stated she had her flu vaccine. At this time she has no other complaints. Past Med Surg Social Fam HX - Past Medical History Medical history: pulmonary embolus, other Psychiatric history: no psych history - Past Surgical History Surgical History: non-contributory, hysterectomy - Social History Smoking Status: Never smoker Smokeless Tobacco Status: No Alcohol use: none Drug use: none - Family History Mother Hx Family Cardiac Disorders: Yes (mi cva) Sister Living Status: Still Living Hx Family Cardiac Disorders: Yes (htn) Medications and Allergies Benzonatate [Tessalon] 100 mg PO TID PRN #15 capsule 05/29/17 [Rx] Doxycycline 100 mg PO BID #14 capsule 05/29/17 [Rx] Albuterol Neb [AccuNeb] 1.25 mg IH DAILY PRN 05/30/17 [History] Albuterol Sulfate [Proair Hfa] 1 puff IH DAILY PRN 05/30/17 [History] Azithromycin [Azithromycin] 1 tab PO AD 05/30/17 [History] Fluticasone/Salmeterol [Advair 250-50 Diskus] 1 puff IH DAILY 05/30/17 [History] predniSONE [PredniSONE] 20 mg PO BID 05/30/17 [History] 3 Allergy/AdvReac Type Severity Reaction Status Date / Time codeine Allergy See Verified 05/29/17 10:45 Comments moxifloxacin [From Avelox] Allergy See Verified 05/29/17 10:45 Comments sulfamethoxazole Allergy See Verified 05/29/17 10:45 [From Septra] Comments trimethoprim [From Septra] Allergy See Verified 05/29/17 10:45 Comments All Systems: A 10-system review of systems was performed and is negative for pertinent findings except as documented above in the HPI. Physical Examination Vital Signs: Vital Signs, Last 4 Hours Temp Pulse Resp BP Pulse Ox 06/02/17 15:37 98.0 F 87 16 124/58 91 General appearance: no acute distress Eyes: nonicteric ENT: oropharynx moist Neck: supple Effort: normal Inspection: hyperextended Auscultation: left: clear, right: rhonchi Percussion: bilateral: not dull Cardiovascular: regular rate and rhythm Gastrointestinal: normoactive bowel sounds, non-distended Extremities: no cyanosis, no edema normal mental status, non-focal exam mood appropriate Results - Laboratory Findings CBC and BMP: 06/02/17 06:48 06/02/17 06:48 Abnormal lab findings: Abnormal lab results WBC 14.5 K/mcL (4.3-11.1) H 06/02/17 06:48 RDW 15.2 % (11.5-14.5) H 06/02/17 06:48 Neutrophils # 13.7 K/mcL (1.6-8.9) H 06/02/17 06:48 Lymphocytes # 0.3 K/mcL (0.6-4.6) L 06/02/17 06:48 Potassium 3.4 mEq/L (3.5-5.1) L 06/02/17 06:48 Carbon Dioxide 31 mEq/L (23-29) H 06/02/17 06:48 BUN 7 mg/dL (8-23) L 06/02/17 06:48 Creatinine 0.46 mg/dL (0.60-1.20) L 06/02/17 06:48 Glucose 141 mg/dL (70-105) H 06/02/17 06:48 B-Natriuretic Peptide 234 pg/mL (Less than 100) H 06/02/17 06:48 Urine Blood Moderate (Negative) H 05/30/17 12:58 Urine Microscopic RBC 15-30 per hpf (0-3) H 05/30/17 12:58 Ur Squamous Epith Cells Many per lpf (None-Few) H 05/30/17 12:58 Vancomycin Trough 2.3 mcg/mL (10-20) L 06/02/17 06:48 - Microbiology Findings Microbiology Findings: Microbiology, Last 48 Hours 06/01/17 09:15 Sputum Culture - Preliminary Sputum 06/01/17 08:13 Streptococcus pneumoniae Antigen (M - Final Urine,Clean Catch 06/01/17 08:13 Legionella Antigen - Final Urine,Clean Catch - Diagnostic Findings CT scan - chest: report reviewed, image reviewed - Clinical Findings Intake & Output: Intake & Output 06/02/17 06/02/17 06/02/17 07:59 15:59 23:59 Intake Total 400 / 400 550 / 550 200 / 200 Output Total 1300 / 1300 3000 / 3000 Balance -900 / -900 -2450 / -2450 200 / 200 Weight 56.1 kg Consult Discharge Plan - Plan Referrals: Chencho Lopez DO [Primary Care Provider] -
[2017-06-02] MEDS: Budesonide/Formoterol 160/4.5 MDI IH SCH (22:20)
[2017-06-03] MEDS: Levalbuterol Neb 1.25 MG/3 ML IH SCH ×4 (03:44→22:23)
[2017-06-03] MEDS: Piperacillin/Tazobactam 3.375 GM/200 ML BAG IVPB SCH (04:04)
[2017-06-03] MEDS: Vancomycin 750 MG in D5% in Water 250 ML IVPB SCH (06:27)
[2017-06-03 06:41] LABS: Basophils % 0.2 %; Hematocrit 40.2 % (35.3-44.9); Hemoglobin 12.5 g/dL (11.5-15.4); Immature Granulocytes % 0.8 % (0-4); Lymphocytes # 0.4 K/mcL (0.6-4.6); Lymphocytes % 3.1 %; Mean Corpuscular HGB Conc 31.1 g/dL (31.6-35.5); Mean Corpuscular Hemoglobin 27.1 pg (28.0-33.3); Mean Corpuscular Volume 87.2 fL (83.0-100.0); Mean Platelet Volume 9.9 fL (9.4-12.4); Monocytes # 0.3 K/mcL (0.0-1.3); Monocytes % 2.3 %; Neutrophils # 12.4 K/mcL (1.6-8.9); Platelet Count 287 K/mcL (140-400); Red Blood Count 4.61 M/mcL (3.82-4.97); Red Cell Distribution Width 14.8 % (11.5-14.5); Segmented Neutrophils % 93.6 %
[2017-06-03 07:05] LABS: BUN/Creatinine Ratio 20 (6-26); Blood Urea Nitrogen 10 mg/dL (8-23); Calcium 8.9 mg/dL (8.6-10.3); Carbon Dioxide 34 mEq/L (23-29); Chloride 101 mEq/L (98-107); Glucose 159 mg/dL (70-105); Osmolality,Calculated 298 (280-300); Potassium 3.2 mEq/L (3.5-5.1); Sodium 143 mEq/L (136-145); eGFR For African Americans > 60 (> 60); eGFR For Non-African Americans > 60 (> 60)
[2017-06-03] MEDS: MethylPREDNISolone 40 MG/ML VIAL IVP SCH ×2 (08:02→17:41)
[2017-06-03] MEDS: Oseltamivir Phosphate 30 MG CAPSULE PO SCH ×2 (08:02→21:14)
[2017-06-03] MEDS ORDERED: Potassium Chloride Elixir 20 MEQ/15 ML UDC PO ONE (09:38)
[2017-06-03] MEDS: Budesonide/Formoterol 160/4.5 MDI IH SCH ×2 (10:33→22:23)
[2017-06-03] MEDS ORDERED: Aminoglycoside Consult 1 EACH MC ONE (14:01)
[2017-06-03] MEDS: Azithromycin 500 MG in D5% in Water 250 ML IVPB SCH (17:41)
--- NOTE | 2017-06-03 17:55 | Internal Med Progress Note ---
Date of Encounter: 06/03/17 Time of Encounter: 17:53 - Assessment and plan (1) Acute respiratory failure with hypoxia Current Visit: Yes Status: Acute Assessment and plan: CTA showed no PE, extensive bronchiectasis which has been noted on prior imaging , mucus plugging and increase in centrilobular punctate nodules in lower lobes. She received 2.9 IVF since admission, may have fluid overload component. Echocardiogram showed normal LVEF, mild pulmonary hypertension, mild LV diastolic dysfunction. De-escalate antibiotic therapy If stays stable off supp O2, discharge tomorrow morning. (2) Sepsis Current Visit: Yes Status: Acute Assessment and plan: 3 SIRS criteria met; tachycardia, tachypnea, leukocytosis. Bronchiectasis per chest x-ray, influenza A positive De-escalate antibiotics therapy -Blood cultures sent 05/30 [facility] Qualifiers: Sepsis type: sepsis due to unspecified organism Qualified Code(s): A41.9 - Sepsis, unspecified organism (3) Influenza A Current Visit: Yes Status: Acute Assessment and plan: Presents with dyspnea, nonproductive cough tachypnea, fever and fatigue. Was at [facility] ED yesterday and diagnosed with influenza A. She was adamant about going home at that time however, returns today with increasing shortness of breath and fever. She reports symptoms onset Tuesday. -Continue supportive care at this time -Tamiflu as recommended per CDC -Ibuprofen for fevers/pain -Continuous tele and spo2 monitoring (4) Bronchiectasis Current Visit: Yes Status: Acute Assessment and plan: Consult Pulmonology Qualifiers: Bronchiectasis type: with acute exacerbation Qualified Code(s): J47.1 - Bronchiectasis with (acute) exacerbation (5) DVT prophylaxis Current Visit: Yes Status: Acute Assessment and plan: Stop heparin, change to SCD because of bleeding at SQ heparin injection site. - Subjective Interval history: Weaned off O2 this morning. Doing well, ambulates around the room without issue. Denies fevers/chills, headache, weakness. - Constitutional Vitals: Temp Pulse Resp BP Pulse Ox 97.8 F 74 18 156/68 92 06/03/17 16:24 06/03/17 16:24 06/03/17 16:24 06/03/17 16:24 06/03/17 16:24 General appearance: Present: cooperative, mild distress, A&O X 3, answers questions appropriately Exam: - Head Head exam: Present: atraumatic, normocephalic - Eye Eye exam: Present: PERRL, conjuntiva pink, sclera anicteric Pupils: Present: PERRL - Neck Neck exam general surgery: Present: supple, trachea midline. Absent: lymphadenopathy - Respiratory Respiratory exam: Present: improved air exchange since yesterday exam, CTAB, wheezes (expiratory ). Course breath sounds in lower lung cano mostly Absent: accessory muscle use, rhonchi, no tachypnea - Cardiovascular Cardiovascular exam: Present: RRR, +S1, +S2. Absent: bradycardia, diastolic murmur, distant heart sounds, gallop, irregular rhythm, JVD, rubs, systolic murmur - GI/Abdominal GI/Abdominal exam: Present: normal bowel sounds, soft, no peritoneal signs. Absent: distended, tenderness - Extremities Exam Extremities exam: Present: warm, radial pulses palpable and symmetrical. Absent : calf tenderness, cyanotic, pedal edema - Neurological Exam Neurological exam: Present: CN II-XII intact, oriented X3, no focal deficits. Absent: pronater drift, facial droop, speech deficit - Skin Skin exam: Present: dry, intact Internal Medicine: Result - Labs CBC & Chem 7: 06/03/17 05:36 06/03/17 05:36 Labs: Short CBC 06/03/17 Range/Units 05:36 WBC 13.2 H (4.3-11.1) K/mcL Hgb 12.5 (11.5-15.4) g/dL Hct 40.2 (35.3-44.9) % Plt Count 287 (140-400) K/mcL Neutrophils # 12.4 H (1.6-8.9) K/mcL BMP 06/03/17 05:36 Sodium 143 Potassium 3.2 L Chloride 101 Carbon Dioxide 34 H BUN 10 Creatinine 0.49 L Glucose 159 H Calcium 8.9 - VTE Documentation of Mechanical Device: Intermittent pneumatic compression device Consult Discharge Plan - Plan Referrals: Chencho Lopez DO [Primary Care Provider] -
[2017-06-04] MEDS: MethylPREDNISolone 40 MG/ML VIAL IVP SCH ×2 (00:20→08:31)
[2017-06-04] MEDS: Levalbuterol Neb 1.25 MG/3 ML IH SCH ×2 (04:46→09:41)
[2017-06-04 05:23] LABS: Hematocrit 38.7 % (35.3-44.9); Hemoglobin 12.2 g/dL (11.5-15.4); Mean Corpuscular HGB Conc 31.5 g/dL (31.6-35.5); Mean Corpuscular Hemoglobin 27.5 pg (28.0-33.3); Mean Corpuscular Volume 87.2 fL (83.0-100.0); Mean Platelet Volume 9.6 fL (9.4-12.4); Platelet Count 280 K/mcL (140-400); Red Blood Count 4.44 M/mcL (3.82-4.97); Red Cell Distribution Width 14.6 % (11.5-14.5)
[2017-06-04 05:46] LABS: BUN/Creatinine Ratio 19 (6-26); Blood Urea Nitrogen 9 mg/dL (8-23); Calcium 8.6 mg/dL (8.6-10.3); Carbon Dioxide 34 mEq/L (23-29); Chloride 102 mEq/L (98-107); Glucose 157 mg/dL (70-105); Osmolality,Calculated 298 (280-300); Potassium 3.4 mEq/L (3.5-5.1); Sodium 143 mEq/L (136-145); eGFR For African Americans > 60 (> 60); eGFR For Non-African Americans > 60 (> 60)
[2017-06-04 05:50] LABS: Lymphocytes # 0.4 K/mcL (0.6-4.6); Monocytes # 0.1 K/mcL (0.0-1.3); Neutrophils # 8.3 K/mcL (1.6-8.9); Platelet Estimate Normal (Normal); Reactive Lymphocytes Present (Not Present)
[2017-06-04 07:30] VITALS: BP 169/73
[2017-06-04] MEDS: Oseltamivir Phosphate 30 MG CAPSULE PO SCH (08:30)
--- NOTE | 2017-06-04 09:22 | Pulmonology Progress Note ---
Date of Encounter: 06/04/17 Time of Encounter: 08:50 Assessment and Plan (1) Bronchiectasis Current Visit: Yes Status: Resolved Patient is feeling much better on current treatment and I would agree she can be discharged home today or tomorrow. Patient has light pseudomonas growth which possibly not true infection but more limitation from her bronchiectasis. Transition to oral steroid is reasonable as a preparation for discharge home. Advised patient to follow-up in 4-6 weeks as outpatient. Please call for any questions and thank you for consultation. Qualifiers: Bronchiectasis type: with acute exacerbation Qualified Code(s): J47.1 - Bronchiectasis with (acute) exacerbation (2) Acute respiratory failure with hypoxia Current Visit: Yes Status: Acute Subjective Principal diagnosis: Pneumonia Interval history: Patient is feeling better and she might be discharged home today or tomorrow Objective PUL Vital signs: Last Vital Signs Temp 97.9 F 06/04/17 07:17 Pulse 72 06/04/17 07:17 Resp 16 06/04/17 07:17 BP 169/73 06/04/17 07:17 Pulse Ox 93 06/04/17 07:17 General appearance: no acute distress Eyes: nonicteric ENT: oropharynx moist Neck: supple Effort: normal Auscultation: bilateral: rhonchi Percussion: bilateral: not dull Cardiovascular: regular rate and rhythm Gastrointestinal: normoactive bowel sounds, non-distended Extremities: no cyanosis normal mental status, non-focal exam mood appropriate Results - Laboratory Findings CBC and BMP: 06/04/17 05:15 06/04/17 05:15 Abnormal lab findings: Abnormal lab results MCH 27.5 pg (28.0-33.3) L 06/04/17 05:15 MCHC 31.5 g/dL (31.6-35.5) L 06/04/17 05:15 RDW 14.6 % (11.5-14.5) H 06/04/17 05:15 Lymphocytes # 0.4 K/mcL (0.6-4.6) L 06/04/17 05:15 Reactive Lymphocytes Present (Not Present) A 06/04/17 05:15 Potassium 3.4 mEq/L (3.5-5.1) L 06/04/17 05:15 Carbon Dioxide 34 mEq/L (23-29) H 06/04/17 05:15 Creatinine 0.47 mg/dL (0.60-1.20) L 06/04/17 05:15 Glucose 157 mg/dL (70-105) H 06/04/17 05:15 B-Natriuretic Peptide 216 pg/mL (Less than 100) H 06/03/17 05:36 Urine Blood Moderate (Negative) H 05/30/17 12:58 Urine Microscopic RBC 15-30 per hpf (0-3) H 05/30/17 12:58 Ur Squamous Epith Cells Many per lpf (None-Few) H 05/30/17 12:58 Vancomycin Trough 2.3 mcg/mL (10-20) L 06/02/17 06:48 - Microbiology Findings Microbiology Findings: Microbiology, Last 48 Hours 06/01/17 09:15 Sputum Culture - Final Sputum Pseudomonas aeruginosa - Clinical Findings Intake & Output: Intake & Output 06/03/17 06/04/17 06/04/17 23:59 07:59 15:59 Intake Total 120 / 120 Output Total 1200 / 1200 1500 / 1500 Balance -1080 / -1080 -1500 / -1500 Weight 55.384 kg - VTE Documentation of Mechanical Device: Intermittent pneumatic compression device Consult Discharge Plan - Plan Referrals: Chencho Lopez DO [Primary Care Provider] -
[2017-06-04] MEDS: Budesonide/Formoterol 160/4.5 MDI IH SCH (09:41)
--- NOTE | 2017-06-04 12:09 | Discharge Summary ---
Date of Encounter: 06/04/17 Time of Encounter: 12:09 - Discharge Diagnosis (1) Acute respiratory failure with hypoxia Priority: Primary Status: Acute (2) Sepsis Priority: Secondary Status: Acute Qualifiers: Sepsis type: sepsis due to unspecified organism Qualified Code(s): A41.9 - Sepsis, unspecified organism (3) Influenza A Priority: Secondary Status: Acute (4) Bronchiectasis Priority: Secondary Status: Resolved Qualifiers: Bronchiectasis type: with acute exacerbation Qualified Code(s): J47.1 - Bronchiectasis with (acute) exacerbation (5) DVT prophylaxis Priority: Secondary Status: Acute - Discharge Medications Home Medications: Albuterol Neb [AccuNeb] 1.25 mg IH DAILY PRN 05/30/17 [History] Albuterol Sulfate [Proair Hfa] 1 puff IH DAILY PRN 05/30/17 [History] Fluticasone/Salmeterol [Advair 250-50 Diskus] 1 puff IH DAILY 05/30/17 [History] Allergies/Adverse Reactions: 3 Allergy/AdvReac Type Severity Reaction Status Date / Time codeine Allergy See Verified 05/29/17 10:45 Comments moxifloxacin [From Avelox] Allergy See Verified 05/29/17 10:45 Comments sulfamethoxazole Allergy See Verified 05/29/17 10:45 [From Septra] Comments trimethoprim [From Septra] Allergy See Verified 05/29/17 10:45 Comments Procedures/tests Complete & Pending: Procedures Performed prior 72 hours Category Date Time Status CT angio chest [CT] Stat Cat Scan 06/01/17 17:53 Completed EV echocardiogram Routine Y 06/02/17 08:51 Completed Date of admission: 05/30/17 16:22 Primary care physician: Chencho Lopez, Consults: 06/02/17 08:42 Consult to Occupational Therapy [CONS] Routine Comment: Evaluate, develop and implement POC Reason for Consult: Evaluate, develop and implement POC Consult to Physical Therapy [CONS] Routine Comment: Evaluate, develop and implement POC Reason for Consult: Disposition planning. Therapy - weakness in bed. 06/02/17 13:41 Consult to Invasive Line Access Team [CONS] Routine Reason for Consult: Limited Access, BREANNA Line Type: EPIV 06/02/17 15:50 Consult to Pulmonology [CONS] Routine Consulting Provider: [facility] Reason for Consult: ARF, bronchiectasis, known to group Call Completed: Yes Discharging clinician: Steffanie Friend - Patient Status Disposition: Home, Self-Care Condition: Fair Functional capacity at discharge: independent ambulation Overall status at discharge: patient is progressing back to baseline - Discharge Instructions Follow Up With: Chencho Lopez, [Primary Care Provider] - - Diet and Activity Activity: increase activity as tolerated Diet: advance to your usual diet Hospital course: Ms. Johnson is a 81 year old female with a PMH of asthma and bronchiectasis presents to the emergency department today for dyspnea. She states that she was seen yesterday at [facility] and diagnosed influenza A. She thought that she was able to go home and did not need admission at that time. However, she returns today with increasing shortness of breath and a fever of 101.9. She states that last night she began to cough more frequently and was coughing up yellow phlegm. She admits to fever, fatigue, cough. She had 3 SIRS criteria met; tachycardia, tachypnea, and leukocytosis. A chest x-ray showed bronchiectasis. She was Flu A positive. She was placed on emperic vancomycin, Levaquin, Zosyn. Tamiflu started per CDC recommendations. Patient was slow to improve and did require oxygen supplementation. A CTA chest was negative for PE, did show again bronchiectasis but also noted mucus plugging. Blood cultures obtained were negative. Pulmonology consulted in regards to bronchiectasis. Patient was continued on antibiotics and Mucinex. She did start to improve gradually and weaned off oxygen. A sputum culture sample returned positive for Pseudomonas, which was likely not true infection but secondary to bronchiectasis. She received a full course of azithromycin after antibiotics were descalated. She was discharged home in stable condition. - Time Spent with Patient Total time spent providing and/or coordinating discharge services: - Constitutional Vitals: Temp Pulse Resp BP Pulse Ox 97.9 F 72 16 169/73 91 06/04/17 07:17 06/04/17 07:17 06/04/17 09:41 06/04/17 07:17 06/04/17 09:41 General appearance: Present: cooperative, mild distress, A&O X 3, answers questions appropriately - Head Head exam: Present: atraumatic, normocephalic - Eye Eye exam: Present: PERRL, conjuntiva pink, sclera anicteric Pupils: Present: PERRL - Neck Neck exam general surgery: Present: supple, trachea midline. Absent: lymphadenopathy - Respiratory Respiratory exam: Present: rhonchi. Absent: accessory muscle use, rales, wheezes Additional comments: rales resolved, breath sounds overall more clear than yesterday exam. - Cardiovascular Cardiovascular exam: Present: RRR, +S1, +S2. Absent: diastolic murmur, gallop, rubs, systolic murmur - GI/Abdominal GI/Abdominal exam: Present: normal bowel sounds, soft, no peritoneal signs. Absent: distended, tenderness - Extremities Exam Extremities exam: Present: warm, radial pulses palpable and symmetrical. Absent : calf tenderness, cyanotic, pedal edema - Neurological Exam Neurological exam: Present: CN II-XII intact, oriented X3, no focal deficits. Absent: pronater drift, facial droop, speech deficit - Skin Skin exam: Present: dry, intact - VTE Documentation of Mechanical Device: Intermittent pneumatic compression device
[2017-06-04] MEDS ORDERED: Azithromycin 250 MG TABLET PO ONE (12:18)
[2017-06-06 09:42] LABS: Mycoplasma pneumoniae IgG 0.05 U/L (<=0.09)
== END 2017-06-04 14:02 | disposition home or self-care (01) | DRG 871 ==
LOC: 3BNU 12:12 → EMEROO 12:12 → 3BNU 15:12 → SUATTDRO 16:22
PROVIDERS: ADMIT Nurse Practitioner; ATTEND Student in an Organized Health Care Education/Training Program

== ENCOUNTER 2018-10-27 13:51 | Inpatient (IN) ==
--- NOTE | 2018-10-27 14:08 | Emergency Department Note ---
Disposition Clinical Impression: Community acquired pneumonia Qualifiers: Qualified Code(s): J18.9 - Disposition: Admitted As Inpatient Condition: Good Time of Disposition: 11:04 SOB HPI - General Chief Complaint: ED Shortness of Breath/Dyspnea Stated Complaint: JARROD,Cough,Sent by callie Time Seen by Provider: 10/27/18 13:58 Source: patient, family Mode of arrival: ambulatory Limitations: no limitations Nursing Notes Reviewed: Yes Vital Signs Reviewed: Yes - History of Present Illness The patient is an 83-year-old female with a past medical history of bronchiectasis who follows with Dr. Curry and infectious disease and Dr. Batista in pulmonology. States she has had 2 months of cough productive of a greenish sputum, has been on multiple antibiotics with out significant relief in her symptoms. Patient saw Dr. Batista this morning was told to present to the ED for admission to the hospital for broad-spectrum antibiotic coverage and further evaluation and management. Patient states other than shortness of breath but she has no other complaints at the time. Pt Subjective Complaint: shortness of breath, cough Onset (ago): month(s) Severity: moderate, severe Known history of: COPD Associated symptoms: Reports: fever, cough, wheezing, sputum production Treatment prior to arrival: oxygen Cough Description: Involuntary Cough Frequency: Intermittent Sputum production: Yes Sputum Amount: Large Sputum Color: Green - Related Data Home Medications Medication Instructions Recorded Confirmed Albuterol Neb [AccuNeb] 1.25 mg IH DAILY PRN 05/30/17 10/27/18 Albuterol Sulfate [Proair Hfa] 1 puff IH DAILY PRN 05/30/17 10/27/18 Fluticasone/Salmeterol [Advair 1 puff IH DAILY 05/30/17 10/27/18 250-50 Diskus] Allergies Allergy/AdvReac Type Severity Reaction Status Date / Time codeine Allergy See Verified 10/28/18 10:56 Comments moxifloxacin [From Avelox] Allergy See Verified 10/28/18 10:56 Comments sulfamethoxazole Allergy See Verified 10/28/18 10:56 [From Septra] Comments trimethoprim [From Septra] Allergy See Verified 10/28/18 10:56 Comments Review of Systems: *See History of Present Illness for more detail Constitutional: Admits fever, chills Cardiovascular: Denies: chest pain Respiratory: Admits dyspnea, cough, denies: hemoptysis Gastrointestinal: Denies: abdominal pain, nausea, vomiting, diarrhea, constipation, hematemesis, melena, hematochezia Genitourinary: Denies: hematuria Musculoskeletal: Admits to musculoskeletal pain in her neck and her back which she believes is related to coughing. Neurological: Admits to weakness Denies: headache, lightheadedness/dizziness, numbness, paresthesias, difficulty with ambulation. Endocrine: Admits fatigue All systems ED: reviewed and negative except as stated. Review of Systems: As Per HPI Past Medical History - Past Medical History Medical history: Reports: pulmonary embolus, other Surgical history: Reports: non-contributory, hysterectomy Psychiatric history: Reports: no psych history THERMAL CUTTER HAND history: Reports: no THERMAL CUTTER HAND history - Social History Smoking Status: Never smoker Smokeless Tobacco Status: No Alcohol use: Reports: none Drug use: Reports: none Physical Exam Constitutional: No acute distress, [id number], engaged to conversation, speech is fluid, answers questions appropriately Neuro: GCS 15, no overt focal neurological deficits Head: Atraumatic, normocephalic Eyes: Pupils equal, round and reactive to light, no scleral icterus, no conjunctival injection Neck: Trachea midline without deviation. Anterior neck is supple without swelling. *Chest: Symmetric chest wall rise *Heart: Cardiac rhythm and rate are regular with S1 and S2 , no S3 or S4 appreciated, no murmurs, gallops, rubs, or clicks. *Lungs: Lungs with diffuse wheezes and crackles bilaterally, there is accessory muscle use and prolonged story phase. Abdomen: Abdomen is flat, soft to palpation, normal bowel sounds. No abdominal bruit auscultated. Non-distended, non-rigid, no organomegaly, no ascites appreciated. No pulsatile mass, no tenderness or guarding to palpation in all four quadrants, no rebound Extremities: Normal capillary refill without evidence of pedal edema, joint swelling or erythema. Pulses/motor/sensory intact in all 4 extremities. Psychiatric exam: Patient displays a normal affect and mood for the environment. No overt signs of hallucination. Integumentary: warm, dry, intact, normal color. No rash, cyanosis, diaphoresis, erythema, or pallor - General Limitations: no limitations General appearance: alert, in no apparent distress Course Course Narrative: CBC, BMP, EKG/old EKG, chest x-ray, lactic acid Steroids, DuoNeb's for the management of patient's symptoms. Patient started on cefepime as previous culture shows sensitivity to this antibiotic. Pulmonology and infectious disease consulted and are following. Vital Signs Temperature 98.1 F 10/27/18 13:54 Pulse Rate 98 10/27/18 13:54 Respiratory Rate 18 10/27/18 13:54 Blood Pressure 178/82 10/27/18 13:54 O2 Sat by Pulse Oximetry 85 10/27/18 13:54 Temperature 98.1 F 10/28/18 07:06 Pulse Rate 90 10/28/18 07:06 Respiratory Rate 18 10/28/18 07:06 Blood Pressure 159/77 10/28/18 07:06 O2 Sat by Pulse Oximetry 94 10/28/18 09:36 Oxygen Delivery Oxygen Delivery Nasal Cannula Shortness of Breath/Dyspnea - MDM Narrative Medical decision making narrative: Patient's laboratory shows a mildly elevated white count Imaging results are negative for acute pathology and show chronic bronchiectasis changes Patient will be admitted to hospitalist medicine service with consults placed to infectious disease and pulmonology Patient and family member at bedside verbalized their understanding and agree ment with this plan. Patient is hemodynamically stable time of admission Dr. Andrade accepting. - Lab Data Lab results reviewed: Yes I reviewed the patient's lab results. Result diagrams: 10/28/18 01:52 10/28/18 01:52 Lab Results 10/27/18 10/27/18 10/27/18 Range/Units 15:00 15:00 17:08 WBC 13.5 H (4.3-11.1) K/mcL RBC 4.54 (3.82-4.97) M/mcL Hgb 12.7 (11.5-15.4) g/dL Hct 40.4 (35.3-44.9) % MCV 89.0 (83.0-100.0) fL MCH 28.0 (28.0-33.3) pg MCHC 31.4 L (31.6-35.5) g/dL RDW 14.2 (11.5-14.5) % Plt Count 372 (140-400) K/mcL MPV 9.3 L (9.4-12.4) fL Immature Gran % 0.5 (0-4) % Seg Neutrophils % 95.2 % Lymphocytes % 3.5 % Monocytes % 0.7 % Eosinophils % 0.0 % Basophils % 0.1 % Neutrophils # 12.9 H (1.6-8.9) K/mcL Lymphocytes # 0.5 L (0.6-4.6) K/mcL Monocytes # 0.1 (0.0-1.3) K/mcL Eosinophils # 0.0 (0.0-0.6) K/mcL Basophils # 0.0 (0.0-0.2) K/mcL Sodium 142 (136-145) mEq/L Potassium 3.3 L (3.5-5.1) mEq/L Chloride 106 (98-107) mEq/L Carbon Dioxide 33 H (23-29) mEq/L BUN 16 (8-23) mg/dL Creatinine 0.47 L (0.60-1.20) mg/dL Est GFR ( Amer) > 60 (> 60) Est GFR (Non-Af Amer) > 60 (> 60) BUN/Creatinine Ratio 34 H (6-26) Glucose 120 H (70-105) mg/dL Calculated Osmolality 296 (280-300) Lactic Acid 1.1 (0.5-2.2) mmol/L Calcium 9.0 (8.6-10.3) mg/dL Troponin I < 0.03 (< 0.04) ng/mL Urine Color (Yellow) Urine Clarity (Clear) Urine pH (5.0-8.0) pH Units Ur Specific [place] (1.010-1.025) Urine Protein (Neg-Trace) mg/dL Urine Glucose (UA) (Normal) mg/dL Urine Ketones (Negative) mg/dL Urine Blood (Negative) Urine Nitrite (Negative) Urine Bilirubin (Negative) Urine Urobilinogen (Normal) mg/dL Ur Leukocyte Esterase (Negative) Urine Microscopic RBC (0-3) per hpf Urine Microscopic WBC (0-3) per hpf Ur Squamous Epith Cells (None-Few) per lpf Urine Bacteria (None-Few) per hpf Hyaline Casts (None-Few) per lpf 10/27/18 Range/Units 18:35 WBC (4.3-11.1) K/mcL RBC (3.82-4.97) M/mcL Hgb (11.5-15.4) g/dL Hct (35.3-44.9) % MCV (83.0-100.0) fL MCH (28.0-33.3) pg MCHC (31.6-35.5) g/dL RDW (11.5-14.5) % Plt Count (140-400) K/mcL MPV (9.4-12.4) fL Immature Gran % (0-4) % Seg Neutrophils % % Lymphocytes % % Monocytes % % Eosinophils % % Basophils % % Neutrophils # (1.6-8.9) K/mcL Lymphocytes # (0.6-4.6) K/mcL Monocytes # (0.0-1.3) K/mcL Eosinophils # (0.0-0.6) K/mcL Basophils # (0.0-0.2) K/mcL Sodium (136-145) mEq/L Potassium (3.5-5.1) mEq/L Chloride (98-107) mEq/L Carbon Dioxide (23-29) mEq/L BUN (8-23) mg/dL Creatinine (0.60-1.20) mg/dL Est GFR ( Amer) (> 60) Est GFR (Non-Af Amer) (> 60) BUN/Creatinine Ratio (6-26) Glucose (70-105) mg/dL Calculated Osmolality (280-300) Lactic Acid (0.5-2.2) mmol/L Calcium (8.6-10.3) mg/dL Troponin I (< 0.04) ng/mL Urine Color Yellow (Yellow) Urine Clarity Clear (Clear) Urine pH 6.5 (5.0-8.0) pH Units Ur Specific [place] 1.021 (1.010-1.025) Urine Protein Negative (Neg-Trace) mg/dL Urine Glucose (UA) Normal (Normal) mg/dL Urine Ketones Negative (Negative) mg/dL Urine Blood Trace H (Negative) Urine Nitrite Negative (Negative) Urine Bilirubin Negative (Negative) Urine Urobilinogen Normal (Normal) mg/dL Ur Leukocyte Esterase Small H (Negative) Urine Microscopic RBC 30-50 H (0-3) per hpf Urine Microscopic WBC 0-3 (0-3) per hpf Ur Squamous Epith Cells Many H (None-Few) per lpf Urine Bacteria None Seen (None-Few) per hpf Hyaline Casts None Seen (None-Few) per lpf - Radiology Data Radiology results reviewed: Yes I reviewed the patient's radiology results. Chest X-Ray 10/27/18 14:49 IMPRESSION: 1. Overall, no significant change in the appearance of the chest. 2. Persistent interstitial opacities bilaterally with bronchiectasis. 3. Unchanged blunting of the left costophrenic angle. D/ / Armando Christy MD / Armando Christy MD Interpreting Provider: Armando Christy MD - EKG Data EKG attestation: Yes I reviewed and interpreted this EKG. EKG results narrative: The patient's EKG shows a sinus rhythm with left atrial enlargement at a heart rate of 95 bpm, ME interval of 146 ms, QR yazdanism 86 ms, QT/QTc interval 349/439 ms respectively. There are no significant ST segment elevations, depressions, pathologic Q waves, there are abnormal T-wave inversions noted in lead V2 which appear isolated to this lead and consistent with prior EKG, there are no signs of acute ischemic change. This EKG performed today is generally consistent with prior EKG performed on 05/30/2017. Attestation Statement - Attestation Attestation: I, Te Resendiz DO, examined this patient [id number] and my medical decision-making was reviewed with Dr. Wily Vivar, Resident Physician. I agree with the documented findings, disposition and treatment plan as described except to the extent set forth below. I personally supervised and was present for the bee/critical portions of the procedures completed by the resident documented below. Please see my progress notes for details.
[2018-10-27] MEDS ORDERED: Ipratropium/Albuterol Neb 3 ML IH ONE (14:50)
[2018-10-27] MEDS ORDERED: methylPREDNISolone 125 MG/2 ML VIAL IVP ONE (14:51)
[2018-10-27] MEDS ORDERED: Cefepime HCl 1,000 MG in Water for inj. (sterile) 20 ML 10 ML IVP STA (14:57)
[2018-10-27 15:35] LABS: Basophils % 0.1 %; Hematocrit 40.4 % (35.3-44.9); Hemoglobin 12.7 g/dL (11.5-15.4); Immature Granulocytes % 0.5 % (0-4); Lymphocytes # 0.5 K/mcL (0.6-4.6); Lymphocytes % 3.5 %; Mean Corpuscular HGB Conc 31.4 g/dL (31.6-35.5); Mean Platelet Volume 9.3 fL (9.4-12.4); Monocytes # 0.1 K/mcL (0.0-1.3); Monocytes % 0.7 %; Neutrophils # 12.9 K/mcL (1.6-8.9); Platelet Count 372 K/mcL (140-400); Red Blood Count 4.54 M/mcL (3.82-4.97); Red Cell Distribution Width 14.2 % (11.5-14.5); Segmented Neutrophils % 95.2 %; White Blood Count 13.5 K/mcL (4.3-11.1)
--- NOTE | 2018-10-27 15:47 | Emergency Department Note ---
Disposition Clinical Impression: Community acquired pneumonia Disposition: Admitted As Inpatient Condition: Good Referrals: Chencho Lopez DO [Primary Care Provider] - Forms: ED Satisfaction Letter Time of Disposition: 16:18 General Adult HPI - General Chief complaint: ED Shortness of Breath/Dyspnea Stated complaint: JARROD,Cough,Sent by sadla Time Seen by Provider: 10/27/18 13:58 Source: patient, family Mode of arrival: ambulatory Limitations: no limitations - History of Present Illness Pain Scale: 0 - Related Data Home Medications Medication Instructions Recorded Confirmed Albuterol Neb [AccuNeb] 1.25 mg IH DAILY PRN 05/30/17 10/27/18 Albuterol Sulfate [Proair Hfa] 1 puff IH DAILY PRN 05/30/17 10/27/18 Fluticasone/Salmeterol [Advair 1 puff IH DAILY 05/30/17 10/27/18 250-50 Diskus] Allergies Allergy/AdvReac Type Severity Reaction Status Date / Time codeine Allergy See Verified 05/29/17 10:45 Comments moxifloxacin [From Avelox] Allergy See Verified 05/29/17 10:45 Comments sulfamethoxazole Allergy See Verified 05/29/17 10:45 [From Septra] Comments trimethoprim [From Septra] Allergy See Verified 05/29/17 10:45 Comments Past Medical History - Past Medical History Medical history: Reports: pulmonary embolus, other Surgical history: Reports: non-contributory, hysterectomy Psychiatric history: Reports: no psych history STATE PATROL OFFICER history: Reports: no STATE PATROL OFFICER history - Social History Smoking Status: 2nd Hand Smoke Exposure Smokeless Tobacco Status: No Alcohol use: Reports: none Drug use: Reports: none Physical Exam - General Limitations: no limitations General appearance: alert, in no apparent distress Course Vital Signs Temperature 98.1 F 10/27/18 13:54 Pulse Rate 98 10/27/18 13:54 Respiratory Rate 18 10/27/18 13:54 Blood Pressure 178/82 10/27/18 13:54 O2 Sat by Pulse Oximetry 85 10/27/18 13:54 Temperature 98.7 F 10/27/18 15:13 Pulse Rate 87 10/27/18 15:21 Respiratory Rate 21 10/27/18 15:21 Blood Pressure 158/85 10/27/18 15:21 O2 Sat by Pulse Oximetry 96 10/27/18 15:21 Oxygen Delivery Oxygen Delivery Nasal Cannula Medical Decision Making - Lab Data Result diagrams: 10/27/18 15:00 Lab Results 10/27/18 Range/Units 15:00 WBC 13.5 H (4.3-11.1) K/mcL RBC 4.54 (3.82-4.97) M/mcL Hgb 12.7 (11.5-15.4) g/dL Hct 40.4 (35.3-44.9) % MCV 89.0 (83.0-100.0) fL MCH 28.0 (28.0-33.3) pg MCHC 31.4 L (31.6-35.5) g/dL RDW 14.2 (11.5-14.5) % Plt Count 372 (140-400) K/mcL MPV 9.3 L (9.4-12.4) fL Immature Gran % 0.5 (0-4) % Seg Neutrophils % 95.2 % Lymphocytes % 3.5 % Monocytes % 0.7 % Eosinophils % 0.0 % Basophils % 0.1 % Neutrophils # 12.9 H (1.6-8.9) K/mcL Lymphocytes # 0.5 L (0.6-4.6) K/mcL Monocytes # 0.1 (0.0-1.3) K/mcL Eosinophils # 0.0 (0.0-0.6) K/mcL Basophils # 0.0 (0.0-0.2) K/mcL Attestation Statement - Attestation Attestation: I, Te Resendiz DO, examined this patient [id number] and my medical decision-making was reviewed with Dr. Wily Vivar, Resident Physician. I agree with the documented findings, disposition and treatment plan as described except to the extent set forth below. I personally supervised and was present for the bee/critical portions of the procedures completed by the resident documented below. Please see my progress notes for details. 83-year-old female presents emergency room at the request of pulmonology for evaluation of persistent bronchiectasis and failed outpatient treatment with antibiotics. They recommended admission for IV antibiotics. IV antibiotic regiment was discussed with the actual sand car worker prior to the evaluation the patient the bedside. Vital signs are stable. Patient is alert she is oriented. She is conversational without any dyspnea. Patient denies any chest pain fevers or chills this week. Denies any nausea vomiting or diarrhea. Denies any headache or vision change. She has not had any falls trauma or injury. Patient is otherwise stable. Patient's main complaint is intermittent shortness of breath and cough. On physical exam the patient is resting comfortably. She has no stridor no trismus. Heart is regular. Lungs are clear with intermittent crackles noted. Abdomen is soft nontender nondistended with no pulsatile masses or lesions. She has no guarding or rigidity. She has no signs of pitting edema swelling or abnormality to the extremities. Patient will have workup completed with CBC chemistry and blood cultures ordered here. Chest x-ray to be established and then admission process will be completed. EKG will be reviewed by myself in documented in the resident physician's note. Patient also blood cultures collected at this time. Patient will be monitored until the admission process is completed. See detailed documentation of the physical exam, medical intervention, medical decision-making and disposition in the resident physician's note. No critical care applied the patient's treatment course at this time. 1600 Patient is doing well. Chest x-ray is consistent with previous findings. She has an elevated white blood cell count but otherwise shows no acute signs of sepsis. Patient was discussed with the hospitalist . Detailed review the presentation symptoms medical intervention were discussed. Lactic acid will be ordered at this time blood cultures of been added on antibiotic regimen has been started. Patient will be monitored here in the emergency department until the admission process is completed.
[2018-10-27 15:52] LABS: BUN/Creatinine Ratio 34 (6-26); Blood Urea Nitrogen 16 mg/dL (8-23); Carbon Dioxide 33 mEq/L (23-29); Chloride 106 mEq/L (98-107); Glucose 120 mg/dL (70-105); Osmolality,Calculated 296 (280-300); Potassium 3.3 mEq/L (3.5-5.1); Sodium 142 mEq/L (136-145); Troponin I < 0.03 ng/mL (< 0.04); eGFR For African Americans > 60 (> 60); eGFR For Non-African Americans > 60 (> 60)
[2018-10-27] MEDS ORDERED: Water for inj. (sterile) 10 ML ONE (15:59)
--- NOTE | 2018-10-27 16:50 | Internal Med History&Physical ---
Date of Encounter: 10/28/18 Time of Encounter: 16:48 Internal Medicine - H&P: HPI Chief complaint: Cough History of present illness: The patient is an 83-year-old female with a past medical history of bronchiectasis who presented to the ER with productive cough of greenish sputum that has been progressively worsening over the last 2 months. The patient was started on several oral antibiotics with no significant improvement. The patient has been evaluated by Dr. Gonsales today in the pulmonary clinic and decision was made to admit the patient for further evaluation and management including starting IV broad-spectrum antibiotic coverage as well as possible bronchoscopy. The patient stated that she also has been having some burning sensation during urination as well as increased frequency and she is worrying about the possibility of having a urinary tract infection. The patient was evaluated by the ER staff and had imaging studies revealed persistent intersti tial opacities bilaterally with bronchiectasis. Past Med Surg Social Fam HX - Past Medical History Medical history: pulmonary embolus, other Additional medical history: LUNG DISEASE Psychiatric history: no psych history - Past Surgical History Surgical History: non-contributory, hysterectomy Additional surgical history: ingrid filter, left lung - Social History Smoking Status: 2nd Hand Smoke Exposure Smokeless Tobacco Status: No Alcohol use: none Drug use: none - Family History Mother Hx Family Cardiac Disorders: Yes (mi cva) Sister Living Status: Still Living Hx Family Cardiac Disorders: Yes (htn) Internal Medicine - H&P: Meds Albuterol Neb [AccuNeb] 1.25 mg IH DAILY PRN 05/30/17 [History] Albuterol Sulfate [Proair Hfa] 1 puff IH DAILY PRN 05/30/17 [History] Fluticasone/Salmeterol [Advair 250-50 Diskus] 1 puff IH DAILY 05/30/17 [History] Allergy/AdvReac Type Severity Reaction Status Date / Time codeine Allergy See Verified 05/29/17 10:45 Comments moxifloxacin [From Avelox] Allergy See Verified 05/29/17 10:45 Comments sulfamethoxazole Allergy See Verified 05/29/17 10:45 [From Septra] Comments trimethoprim [From Septra] Allergy See Verified 05/29/17 10:45 Comments All Systems PM: A 10-system review of systems was performed and is negative for pertinent findings except as documented above in the HPI. - Constitutional Vitals: Temp Pulse Resp BP Pulse Ox 98.7 F 87 21 158/85 96 10/27/18 15:13 10/27/18 15:21 10/27/18 15:21 10/27/18 15:21 10/27/18 15:21 General appearance: Present: A&O X 3 Exam: ` - Head Head exam: Present: atraumatic, normocephalic - Neck Neck exam general surgery: Present: supple, trachea midline. Absent: lymphad enopathy - Respiratory Respiratory exam: Present: wheezes. Absent: accessory muscle use, rales - Cardiovascular Cardiovascular exam: Present: RRR, +S1, +S2. Absent: diastolic murmur, gallop, rubs, systolic murmur - GI/Abdominal GI/Abdominal exam: Present: normal bowel sounds, soft, no peritoneal signs. Absent: distended, tenderness - Extremities Exam Extremities exam: Present: warm, radial pulses palpable and symmetrical. Absent: calf tenderness, cyanotic, pedal edema Internal Med - H&P Results - Labs CBC & Chem 7: 10/27/18 15:00 10/27/18 15:00 Labs: Short CBC 10/27/18 Range/Units 15:00 WBC 13.5 H (4.3-11.1) K/mcL Hgb 12.7 (11.5-15.4) g/dL Hct 40.4 (35.3-44.9) % Plt Count 372 (140-400) K/mcL Neutrophils # 12.9 H (1.6-8.9) K/mcL BMP 10/27/18 15:00 Sodium 142 Potassium 3.3 L Chloride 106 Carbon Dioxide 33 H BUN 16 Creatinine 0.47 L Glucose 120 H Calcium 9.0 Cardiac Enzymes 10/27/18 Range/Units 15:00 Troponin I < 0.03 (< 0.04) ng/mL - Impressions ITS Impressions Chest X-Ray 10/27/18 14:49 IMPRESSION: 1. Overall, no significant change in the appearance of the chest. 2. Persistent interstitial opacities bilaterally with bronchiectasis. 3. Unchanged blunting of the left costophrenic angle. D/ / Armando Christy MD / Armando Christy MD Interpreting Provider: Armando Christy MD - Assessment and Plan (1) Community acquired pneumonia Current Visit: Yes Status: Acute Assessment and plan: SOB due to *Pneumonia in the sitting Structural lung disease, failed outpatient oral ABs. - Blood Cx - Sputum Cx - Urine Legionella antigen - Antibiotics - CBCD, CMP in AM - Heparin 5000 U SQ BID - Pulmonary and ID consult Qualifiers: Qualified Code(s): J18.9 - Pneumonia, unspecified organism (2) Bronchiectasis Current Visit: Yes Status: Acute Assessment and plan: The patient is F/U with Dr. Gonsales as an outpatient. Qualifiers: Qualified Code(s): J47.9 - Bronchiectasis, uncomplicated (3) Urine frequency Current Visit: Yes Status: Acute Assessment and plan: The patient c/o burning sensation during urination, increased frequency of urination, we will obtain clean catch UA and start Abs if indicated. (4) DVT prophylaxis Current Visit: No Status: Acute Assessment and plan: We will start heparin 5000 BID - Time Spent With Patient Total time spent is greater than 50% in coordination of care (as documented) at patient's floor/unit and/or counseling patient:
[2018-10-27] MEDS ORDERED: Ondansetron 4 MG/2 ML VIAL IVP PRN (17:54)
[2018-10-27] MEDS ORDERED: Naloxone 0.4 MG/ML INJ IVP PRN (17:54)
[2018-10-27] MEDS ORDERED: Albuterol Neb 1.25 MG/3 ML VIAL IH PRN (18:07)
[2018-10-27 19:23] LABS: Bilirubin,Urine Negative (Negative); Blood,Urine Trace (Negative); Clarity,Urine Clear (Clear); Color,Urine Yellow (Yellow); Glucose,Urine (UA) Normal (Normal); Ketones,Urine Negative (Negative); Leukocyte Esterase,Urine Small (Negative); Nitrite,Urine Negative (Negative); PH,Urine 6.5 pH Units (5.0-8.0); Protein,Urine Negative (Neg-Trace); Specific Gravity,Urine 1.021 (1.010-1.025); Urobilinogen,Urine Normal (Normal)
[2018-10-27 19:30] LABS: Bacteria,Urine None Seen per hpf (None-Few); Hyaline Casts,Urine None Seen per lpf (None-Few); RBC,Urine 30-50 per hpf (0-3); Squamous Epithelial Cell,Urine Many per lpf (None-Few); WBC,Urine 0-3 per hpf (0-3)
[2018-10-27] MEDS: MethylPREDNISolone 40 MG/ML VIAL IVP SCH (20:21)
[2018-10-27] MEDS: 0.9 % Sodium Chloride 1,000 ML IVC SCH (20:22)
[2018-10-27] MEDS: Ipratropium/Albuterol Neb 3 ML IH SCH (22:50)
[2018-10-28] MEDS: Cefepime HCl 1,000 MG in Water for inj. (sterile) 20 ML 10 ML IVP SCH ×4 (00:32→23:35)
[2018-10-28] MEDS: MethylPREDNISolone 40 MG/ML VIAL IVP SCH ×4 (00:32→20:52)
[2018-10-28 03:11] LABS: Basophils % 0.1 %; Hematocrit 39.4 % (35.3-44.9); Hemoglobin 12.2 g/dL (11.5-15.4); Immature Granulocytes % 0.7 % (0-4); Lymphocytes # 0.5 K/mcL (0.6-4.6); Lymphocytes % 5.6 %; Mean Corpuscular Hemoglobin 27.9 pg (28.0-33.3); Mean Corpuscular Volume 90.2 fL (83.0-100.0); Mean Platelet Volume 9.6 fL (9.4-12.4); Monocytes # 0.1 K/mcL (0.0-1.3); Monocytes % 0.8 %; Neutrophils # 8.1 K/mcL (1.6-8.9); Platelet Count 350 K/mcL (140-400); Red Blood Count 4.37 M/mcL (3.82-4.97); Red Cell Distribution Width 14.3 % (11.5-14.5); Segmented Neutrophils % 92.8 %; White Blood Count 8.7 K/mcL (4.3-11.1)
[2018-10-28 03:21] LABS: Prothrombin Time 10.8 Seconds (9.4-12.1)
[2018-10-28 03:24] LABS: Activated Partial Thrombo Time 28.8 Seconds (26.0-36.0)
[2018-10-28 03:31] LABS: Alanine Aminotransferase 12 Units/L (7-52); Albumin 3.4 g/dL (3.5-5.7); Albumin/Globulin Ratio 1.2 (1.1-2.2); Alkaline Phosphatase 61 Units/L (34-104); Aspartate Amino Transferase 16 Units/L (13-39); BUN/Creatinine Ratio 33 (6-26); Bilirubin,Total 0.3 mg/dL (0.3-1.0); Blood Urea Nitrogen 15 mg/dL (8-23); Calcium 8.6 mg/dL (8.6-10.3); Carbon Dioxide 29 mEq/L (23-29); Chloride 105 mEq/L (98-107); Chol/HDL Ratio 3.2 (0-4.9); Cholesterol 198 mg/dL (< 200); Globulin 2.9 g/dL (2.4-3.5); Glucose 197 mg/dL (70-105); HDL Cholesterol 62 mg/dL (40-59); LDL Cholesterol,Calculated 121 mg/dL (0-99); Magnesium 2.2 mg/dL (1.6-2.6); Osmolality,Calculated 292 (280-300); Phosphorous 2.6 mg/dL (2.7-4.5); Potassium 3.4 mEq/L (3.5-5.1); Sodium 138 mEq/L (136-145); Total Protein 6.3 g/dL (6.4-8.9); Triglycerides 74 mg/dL (< 150); eGFR For African Americans > 60 (> 60); eGFR For Non-African Americans > 60 (> 60)
[2018-10-28] MEDS: Ipratropium/Albuterol Neb 3 ML IH SCH ×4 (04:22→22:05)
[2018-10-28] MEDS: 0.9 % Sodium Chloride 1,000 ML IVC SCH (04:34)
[2018-10-28] MEDS ORDERED: 0.9 % Sodium Chloride 1,000 ML IVC ONE (06:15)
[2018-10-28] MEDS: Budesonide/Formoterol 80/4.5 MDI IH SCH (10:12)
--- NOTE | 2018-10-28 12:49 | Internal Med Progress Note ---
Hospitalist Progress Note - Encounter Date of Encounter: 10/28/18 Time of Encounter: 12:47 - Subjective Interval History: I have seen and evaluated the patient at bedside. patient reports improvement in her symptoms. denies shortness of breath. reports productive cough. denies chest pain, nausea or vomiting - Exam Vitals: Temp Pulse Resp BP Pulse Ox 98.1 F 90 16 159/77 95 10/28/18 07:06 10/28/18 07:06 10/28/18 10:12 10/28/18 07:06 10/28/18 10:12 Exam: Vitals: Reviewed General: Alert and oriented x4. In no distress Cardiovascular: RRR, normal S1 & S2, no rubs, murmurs or gallops. Lungs: Rales b/l, no wheezes or crackles. Abdomen: Soft, non-tender, no rigidity. Extremities: No deformity, no edema or tenderness, no joint swelling or clubbing. Neurological: Normal cognition and motor skills. Rest of the physical exam is non contributory - Assessment and Plan (1) Community acquired pneumonia Current Visit: Yes Status: Acute Assessment and Plan: patient with a Hx of bronchiectasis. Reported productive cough and fever. Continue cefepime 1 g IV daily. Sputum cultures, and urine for atypical ordered (2) Bronchiectasis Current Visit: Yes Status: Chronic Assessment and Plan: rales on auscultation b/l. decrease methyl-prednisolone to 40mg/IV BID continue bronchodilators and symbicort incentive spirometry Pulmonology recommendations appreciated (3) Urine frequency Current Visit: Yes Status: Chronic DVT Prophylaxis: Patient is on heparin subcutaneous. - Summary of Assessment and Plan Summary of Assessment and Plan: patient to remain in the hospital due to bronchiectasis with exacerbation. - Time Spent with Patient Total time spent is greater than 50% in coordination of care (as documented) at patient's floor/unit and/or counseling patient: Greater than 35 minutes (40) Plan of Care Discussed with: patient (and the nurse) Internal Medicine: Result - Labs CBC & Chem 7: 10/28/18 01:52 10/28/18 01:52 Labs: Short CBC 10/27/18 10/28/18 Range/Units 15:00 01:52 WBC 13.5 H 8.7 (4.3-11.1) K/mcL Hgb 12.7 12.2 (11.5-15.4) g/dL Hct 40.4 39.4 (35.3-44.9) % Plt Count 372 350 (140-400) K/mcL Neutrophils # 12.9 H 8.1 (1.6-8.9) K/mcL BMP 10/27/18 10/28/18 15:00 01:52 Sodium 142 138 Potassium 3.3 L 3.4 L Chloride 106 105 Carbon Dioxide 33 H 29 BUN 16 15 Creatinine 0.47 L 0.46 L Glucose 120 H 197 H Calcium 9.0 8.6 Cardiac Enzymes 10/27/18 Range/Units 15:00 Troponin I < 0.03 (< 0.04) ng/mL Liver Function 10/28/18 Range/Units 01:52 Total Bilirubin 0.3 (0.3-1.0) mg/dL AST 16 (13-39) Units/L ALT 12 (7-52) Units/L Alkaline Phosphatase 61 (34-104) Units/L Albumin 3.4 L (3.5-5.7) g/dL Urine 10/27/18 Range/Units 18:35 Urine Color Yellow (Yellow) Urine Clarity Clear (Clear) Urine pH 6.5 (5.0-8.0) pH Units Ur Specific [place] 1.021 (1.010-1.025) Urine Protein Negative (Neg-Trace) mg/dL Urine Glucose (UA) Normal (Normal) mg/dL - ABG Interpretation ABG results: PT/INR, D-dimer PT 10.8 Seconds (9.4-12.1) 10/28/18 01:52 - Impressions Impressions Chest X-Ray 10/27/18 14:49 IMPRESSION: 1. Overall, no significant change in the appearance of the chest. 2. Persistent interstitial opacities bilaterally with bronchiectasis. 3. Unchanged blunting of the left costophrenic angle. D/ / Armando Christy MD / Armando Christy MD Interpreting Provider: Armando Christy MD Consult Discharge Plan - Plan Referrals: Chencho Lopez, [Primary Care Provider] - (1) Community acquired pneumonia Qualifiers: Laterality: unspecified laterality Qualified Code(s): J18.9 - Pneumonia, unspecified organism (2) Bronchiectasis Qualifiers: Bronchiectasis type: with acute exacerbation Qualified Code(s): J47.1 - Bronchiectasis with (acute) exacerbation
--- NOTE | 2018-10-28 13:58 | Pulmonology Consult Note ---
Date of Encounter: 10/28/18 Time of Encounter: 09:40 Assessment and Plan (1) Bronchiectasis Current Visit: Yes Status: Chronic This is a pleasant 83-year-old female who is known to me and she was seen in the office yesterday complaining of failure of treatment as outpatient and continued to be symptomatic and in the office we discussed different options regarding treatment with intravenous antibiotics and because of her symptoms was worsening she agreed to be hospitalized for intravenous antibiotics and she is already feeling better since yesterday when I saw her in the office. I am hoping 2-3 days of antibiotics and then evaluation by infectious disease to continue antibiotics as outpatient intravenously that will be very helpful. We will co ntinue follow-up and please call for any questions. If patient does not improve then we will consider bronchoscopy for airway clearance as well as to have with samples for cultures and sensitivity. Airway clearance methods such as bronchodilators as well as percussion therapy is helpful. Thank you for consultation. Qualifiers: Bronchiectasis type: with acute exacerbation Qualified Code(s): J47.1 - Bronchiectasis with (acute) exacerbation History of Present Illness Consult date: 10/28/18 Requesting physician: Zoey Dumas Reason for consult: cough, pneumonia Chief complaint: Cough History of present illness: This is a very pleasant 83 year old female with significant history of bronchiectasis and I saw her in the office yesterday with her symptoms was getting worse with productive greenish sputum and failure to treatment as outpatient. I have given her options to be admitted for IV antibiotics based on her las culture and sensitivity and she agreed to do that. Patient has wheezing, no hemoptysis and patient is concern that she has UTI. Patient came to ER and I received called form the ER when she arrived and gave them recommendations and today patient is feeling better. She denies any fever or chills and she has no nausea or vomiting and she has seen infectious disease in the past. Patient has CXR with persistent opacities and bronchiectasis. She denies sick contacts or allergies during this time of year. She has been treated with different antibiotics as outpatient without significant improvement. Past Med Surg Social Fam HX - Past Medical History Medical history: pulmonary embolus, other Additional medical history: LUNG DISEASE Psychiatric history: no psych history - Past Surgical History Surgical History: non-contributory, hysterectomy Additional surgical history: ingrid filter, left lung - Social History Smoking Status: 2nd Hand Smoke Exposure Smokeless Tobacco Status: No Alcohol use: none Drug use: none - Family History Mother Name: Yuki Family Member Ethnicity: Non- Age at : 69 Cause of : Stroke Hx Family Cardiac Disorders: Yes Hx Family Neurologic Disorders: Yes Sister Living Status: Still Living Hx Family Cardiac Disorders: Yes (htn) Medications and Allergies Albuterol Neb [AccuNeb] 1.25 mg IH DAILY PRN 05/30/17 [History] Albuterol Sulfate [Proair Hfa] 1 puff IH DAILY PRN 05/30/17 [History] Fluticasone/Salmeterol [Advair 250-50 Diskus] 1 puff IH BID 05/30/17 [History] Acetylcysteine [Nac] 500 mg PO DAILY 10/28/18 [History] Azithromycin 250 mg PO DAILY 10/28/18 [History] Calcium Lactate 100 mg PO TID 10/28/18 [History] Ergocalciferol (VITAMIN D2) [Vitamin D2] 2,000 unit PO TID 10/28/18 [History] Non-Formulary Medication 0 each PO DAILY 10/28/18 [History] Fleming-3S/Dha/Epa/Fish Oil/D3 [Cardio Fleming Benefits Softgel] 1 each PO TID 10/28/18 [History] predniSONE [PredniSONE] 20 mg PO BID 10/28/18 [History] Allergy/AdvReac Type Severity Reaction Status Date / Time codeine Allergy See Verified 10/28/18 10:56 Comments moxifloxacin [From Avelox] Allergy See Verified 10/28/18 10:56 Comments sulfamethoxazole Allergy See Verified 10/28/18 10:56 [From Septra] Comments trimethoprim [From Septra] Allergy See Verified 10/28/18 10:56 Comments All Systems: The remainder of the systems were reviewed and are negative Physical Examination Vital Signs: Vital Signs, Last 4 Hours Resp Pulse Ox 10/28/18 10:12 16 95 General: Patient is in no acute distress. HEENT: Normocephalic atraumatic, pupils are equal round and reactive to light and accommodation, anicteric sclera, nares is patent, mucous membranes moist, no JVD, trachea is midline Cardiovascular: Normal sinus rhythm, S1 and S2 audible, no murmur or rubs Respiratory: Rhonchi and crackles to auscultation bilaterally. No acute distress. No wheezing. Patient not using accessory muscles. Abdomen: Soft, nontender, nondistended, positive bowel sounds in all 4 quadrants Extremities: Warm, dry, no lower extremity edema. Normal capillary refill. Neuro: Alert and oriented and follows commands. Grossly no neuro deficits. Skin: Warm to touch : No obvious abnormalities. Psych: Normal Results - Laboratory Findings CBC and BMP: 10/28/18 01:52 10/28/18 01:52 PT/INR, D-dimer PT 10.8 Seconds (9.4-12.1) 10/28/18 01:52 Abnormal lab findings: Abnormal lab results WBC 13.5 K/mcL (4.3-11.1) H 10/27/18 15:00 MCH 27.9 pg (28.0-33.3) L 10/28/18 01:52 MCHC 31.0 g/dL (31.6-35.5) L 10/28/18 01:52 MPV 9.3 fL (9.4-12.4) L 10/27/18 15:00 12.9 K/mcL (1.6-8.9) H 10/27/18 15:00 0.5 K/mcL (0.6-4.6) L 10/28/18 01:52 Potassium 3.4 mEq/L (3.5-5.1) L 10/28/18 01:52 Carbon Dioxide 33 mEq/L (23-29) H 10/27/18 15:00 0.46 mg/dL (0.60-1.20) L 10/28/18 01:52 33 (6-26) H 10/28/18 01:52 Glucose 197 mg/dL (70-105) H 10/28/18 01:52 Phosphorus 2.6 mg/dL (2.7-4.5) L 10/28/18 01:52 6.3 g/dL (6.4-8.9) L 10/28/18 01:52 3.4 g/dL (3.5-5.7) L 10/28/18 01:52 LDL Cholesterol, Calc 121 mg/dL (0-99) H 10/28/18 01:52 62 mg/dL (40-59) H 10/28/18 01:52 Trace (Negative) H 10/27/18 18:35 Ur Leukocyte Esterase Small (Negative) H 10/27/18 18:35 30-50 per hpf (0-3) H 10/27/18 18:35 Ur Squamous Epith Cells Many per lpf (None-Few) H 10/27/18 18:35 - Microbiology Findings Microbiology Findings: Microbiology, Last 48 Hours 10/27/18 15:15 Blood Culture - Preliminary Peripheral Venipuncture Culture is incubating and being continuously meghan tored for growth. Final report to follow. 10/27/18 15:00 Blood Culture - Preliminary Peripheral Venipuncture Culture is incubating and being continuously monitored for growth. Final report to follow. - Diagnostic Findings Chest x-ray: report reviewed, image reviewed - Clinical Findings Intake & Output: Intake & Output 10/27/18 10/28/18 10/28/18 23:59 07:59 15:59 Intake Total 1130 / 1650 520 / 1650 Balance 1130 / 1650 520 / 1650 Weight 55.7 kg Consult Discharge Plan - Plan Referrals: Chencho Lopez DO [Primary Care Provider] -
[2018-10-28] MEDS: *HR* Heparin 5,000 UNIT/ML VIAL SQ SCH ×2 (15:26→20:52)
[2018-10-29] MEDS: Ipratropium/Albuterol Neb 3 ML IH SCH ×2 (04:13→10:40)
[2018-10-29] MEDS: *HR* Heparin 5,000 UNIT/ML VIAL SQ SCH ×3 (05:53→20:46)
--- NOTE | 2018-10-29 09:17 | Pulmonology Progress Note ---
Date of Encounter: 10/29/18 Time of Encounter: 08:00 Assessment and Plan (1) Bronchiectasis Status: Chronic Patient is already feeling better on current treatment and continue to wean off FIO2. It is better with adding humidification. Patient hopefully will be seen by ID tomorrow and discussed with primary team to consult Dr. Colon and hopefully IV antibiotic can be arranged for her as outpatient. Please call for any questions. Qualifiers: Bronchiectasis type: with acute exacerbation Qualified Code(s): J47.1 - Bronchiectasis with (acute) exacerbation Subjective Principal diagnosis: Pneumonia Interval history: Patient is feeling much better with current treatment. Objective PUL Vital signs: Last Vital Signs Temp 98.1 F 10/29/18 07:28 Pulse 76 10/29/18 07:28 Resp 15 10/29/18 07:28 BP 170/78 10/29/18 07:28 Pulse Ox 90 10/29/18 07:28 General appearance: no acute distress Eyes: nonicteric ENT: oropharynx moist Neck: supple Effort: normal Auscultation: bilateral: rhonchi Percussion: bilateral: not dull Cardiovascular: regular rate and rhythm Gastrointestinal: normoactive bowel sounds, non-distended Extremities: no cyanosis normal mental status, non-focal exam mood appropriate Results - Laboratory Findings CBC and BMP: 10/30/18 04:40 10/30/18 04:40 PT/INR, D-dimer PT 10.8 Seconds (9.4-12.1) 10/28/18 01:52 Abnormal lab findings: Abnormal lab results WBC 13.5 K/mcL (4.3-11.1) H 10/27/18 15:00 MCH 27.9 pg (28.0-33.3) L 10/28/18 01:52 MCHC 31.0 g/dL (31.6-35.5) L 10/28/18 01:52 MPV 9.3 fL (9.4-12.4) L 10/27/18 15:00 12.9 K/mcL (1.6-8.9) H 10/27/18 15:00 0.5 K/mcL (0.6-4.6) L 10/28/18 01:52 Potassium 3.4 mEq/L (3.5-5.1) L 10/28/18 01:52 Carbon Dioxide 33 mEq/L (23-29) H 10/27/18 15:00 0.46 mg/dL (0.60-1.20) L 10/28/18 01:52 33 (6-26) H 10/28/18 01:52 Glucose 197 mg/dL (70-105) H 10/28/18 01:52 Phosphorus 2.6 mg/dL (2.7-4.5) L 10/28/18 01:52 6.3 g/dL (6.4-8.9) L 10/28/18 01:52 3.4 g/dL (3.5-5.7) L 10/28/18 01:52 LDL Cholesterol, Calc 121 mg/dL (0-99) H 10/28/18 01:52 62 mg/dL (40-59) H 10/28/18 01:52 Trace (Negative) H 10/27/18 18:35 Ur Leukocyte Esterase Small (Negative) H 10/27/18 18:35 30-50 per hpf (0-3) H 10/27/18 18:35 Ur Squamous Epith Cells Many per lpf (None-Few) H 10/27/18 18:35 - Microbiology Findings Microbiology Findings: Microbiology, Last 48 Hours 10/28/18 14:43 Streptococcus pneumoniae Antigen (M - Final Urine,Random-Not Preferred 10/27/18 15:15 Blood Culture - Preliminary Peripheral Venipuncture Culture is incubating and being continuously monitored for growth. Final report to follow. 10/27/18 15:00 Blood Culture - Preliminary Peripheral Venipuncture Culture is incubating and being continuously monitored for growth. Final report to follow. - Clinical Findings Intake & Output: Intake & Output 10/28/18 10/29/18 10/29/18 23:59 07:59 15:59 Intake Total 70 1730 60 / 60 Balance 1730 60 / 60 Weight 55.7 kg Consult Discharge Plan - Plan Instructions: Prednisone (By mouth), Cefepime (Injection), Pneumonia (DC) Referrals: Chencho Lopez DO [Primary Care Provider] - 11/06/18 10:45 am (Please follow up as schedule...) Lyndon Dyson MD [Partnered Physician] - (web requested 10/30/2018) Prescriptions: Cefepime HCl 2 gm IJ DAILY #9 vial
[2018-10-29] MEDS: MethylPREDNISolone 40 MG/ML VIAL IVP SCH ×2 (09:53→20:24)
[2018-10-29] MEDS: Cholecalciferol (D-3) 1,000 UNIT TABLET PO SCH (09:53)
[2018-10-29] MEDS: Cefepime HCl 1,000 MG in Water for inj. (sterile) 20 ML 10 ML IVP SCH ×2 (09:53→14:55)
[2018-10-29] MEDS: amLODIPine 5 MG TABLET PO SCH (09:56)
[2018-10-29 10:30] LABS: BUN/Creatinine Ratio 31 (6-26); Blood Urea Nitrogen 15 mg/dL (8-23); Calcium 8.8 mg/dL (8.6-10.3); Carbon Dioxide 29 mEq/L (23-29); Chloride 106 mEq/L (98-107); Glucose 98 mg/dL (70-105); Magnesium 2.2 mg/dL (1.6-2.6); Osmolality,Calculated 295 (280-300); Phosphorous 2.8 mg/dL (2.7-4.5); Potassium 4.1 mEq/L (3.5-5.1); Sodium 142 mEq/L (136-145); eGFR For African Americans > 60 (> 60); eGFR For Non-African Americans > 60 (> 60)
[2018-10-29] MEDS: Budesonide/Formoterol 80/4.5 MDI IH SCH (10:40)
[2018-10-29] MEDS: Levalbuterol Neb 1.25 MG/3 ML IH SCH ×3 (11:48→22:28)
--- NOTE | 2018-10-29 13:09 | Internal Med Progress Note ---
Hospitalist Progress Note - Encounter Date of Encounter: 10/29/18 Time of Encounter: 13:06 - Subjective Interval History: I have seen and evaluated the patient at bedside. patient report her breathing has improved. denies chest pain, light headedness or palpitation. denies abdominal pain - Exam Vitals: Temp Pulse Resp BP Pulse Ox 98.1 F 76 17 170/78 99 10/29/18 07:28 10/29/18 07:28 10/29/18 10:40 10/29/18 07:28 10/29/18 10:40 Exam: Vitals: Reviewed General: Alert and oriented x4. In no distress Cardiovascular: RRR, normal S1 & S2, no rubs, murmurs or gallops. Lungs: Rales b/l, no wheezes or crackles. Abdomen: Soft, non-tender, no rigidity. NABS in all 4 quadrants Extremities: No edema Neurological: No focal neurological exam Rest of the physical exam is non contributory - Assessment and Plan (1) Bronchiectasis Current Visit: Yes Status: Chronic Assessment and Plan: rales on auscultation b/l but improved when compared with yesterday Plan continue methyl-prednisolone to 40mg/IV BID on bronchodilators and symbicort incentive spirometry Pulmonology recommendations appreciated ID consulted as patient has failed multiple course of oral antibiotics as outpatient (2) Community acquired pneumonia Current Visit: Yes Status: Acute Assessment and Plan: patient report feeling better today. cough has decreased Plan Continue cefepime 1 g IV daily. Sputum cultures: pending legionella: negative (3) Urine frequency Current Visit: Yes Status: Chronic (4) Hypertension Current Visit: Yes Status: Suspected Assessment and Plan: elevated BP possible secondary to steroids. patient started on amlodine. DVT Prophylaxis: On heparin subq - Summary of Assessment and Plan Summary of Assessment and Plan: patient to remain in the hospital due to acute bronchiectasis. High dose of IV steroids. - Time Spent with Patient Total time spent is greater than 50% in coordination of care (as documented) at patient's floor/unit and/or counseling patient: Greater than 35 minutes (40) Plan of Care Discussed with: patient (and the nurse) Internal Medicine: Result - Labs CBC & Chem 7: 10/28/18 01:52 10/29/18 02:01 Labs: BMP 10/29/18 02:01 Sodium 142 Potassium 4.1 Chloride 106 Carbon Dioxide 29 BUN 15 Creatinine 0.48 L Glucose 98 Calcium 8.8 - ABG Interpretation ABG results: PT/INR, D-dimer PT 10.8 Seconds (9.4-12.1) 10/28/18 01:52 Consult Discharge Plan - Plan Referrals: Chencho Lopez DO [Primary Care Provider] - (1) Bronchiectasis Qualifiers: Bronchiectasis type: with acute exacerbation Qualified Code(s): J47.1 - B ronchiectasis with (acute) exacerbation (2) Community acquired pneumonia Qualifiers: Laterality: unspecified laterality Qualified Code(s): J18.9 - Pneumonia, unspecified organism (4) Hypertension Qualifiers: Hypertension type: unspecified Qualified Code(s): I10 - Essential (primary) hypertension
[2018-10-30] MEDS: Cefepime HCl 1,000 MG in Water for inj. (sterile) 20 ML 10 ML IVP SCH ×2 (00:26→09:31)
[2018-10-30] MEDS: Levalbuterol Neb 1.25 MG/3 ML IH SCH ×3 (04:49→15:54)
[2018-10-30 05:08] LABS: Basophils % 0.1 %; Hematocrit 39.1 % (35.3-44.9); Hemoglobin 12.2 g/dL (11.5-15.4); Immature Granulocytes % 0.5 % (0-4); Lymphocytes # 0.7 K/mcL (0.6-4.6); Lymphocytes % 9.5 %; Mean Corpuscular HGB Conc 31.2 g/dL (31.6-35.5); Mean Corpuscular Hemoglobin 28.2 pg (28.0-33.3); Mean Corpuscular Volume 90.3 fL (83.0-100.0); Mean Platelet Volume 9.5 fL (9.4-12.4); Monocytes # 0.2 K/mcL (0.0-1.3); Monocytes % 2.5 %; Neutrophils # 6.4 K/mcL (1.6-8.9); Platelet Count 345 K/mcL (140-400); Red Blood Count 4.33 M/mcL (3.82-4.97); Red Cell Distribution Width 14.5 % (11.5-14.5); Segmented Neutrophils % 87.4 %; White Blood Count 7.3 K/mcL (4.3-11.1)
[2018-10-30 05:24] LABS: BUN/Creatinine Ratio 33 (6-26); Blood Urea Nitrogen 13 mg/dL (8-23); Calcium 8.7 mg/dL (8.6-10.3); Carbon Dioxide 28 mEq/L (23-29); Chloride 106 mEq/L (98-107); Glucose 124 mg/dL (70-105); Magnesium 2.1 mg/dL (1.6-2.6); Osmolality,Calculated 298 (280-300); Phosphorous 2.8 mg/dL (2.7-4.5); Potassium 3.9 mEq/L (3.5-5.1); Sodium 143 mEq/L (136-145); eGFR For African Americans > 60 (> 60); eGFR For Non-African Americans > 60 (> 60)
[2018-10-30] MEDS: *HR* Heparin 5,000 UNIT/ML VIAL SQ SCH ×2 (06:30→13:29)
[2018-10-30] MEDS: MethylPREDNISolone 40 MG/ML VIAL IVP SCH (09:32)
[2018-10-30] MEDS: amLODIPine 5 MG TABLET PO SCH (09:32)
[2018-10-30] MEDS: Cholecalciferol (D-3) 1,000 UNIT TABLET PO SCH (09:32)
[2018-10-30] MEDS ORDERED: Budesonide/Formoterol 80/4.5 MDI IH SCH (10:00)
--- NOTE | 2018-10-30 11:13 | Infectious Disease Consult ---
Infectious Disease-Consult - Encounter Date/Time Date of Encounter: 10/30/18 Time of Encounter: 11:06 - Data of Consult Patient: new to practice Reason for consult: Bronchiectasis, recommendations for antibiotics Consult date: 10/30/18 Requesting Physician: Gee Vicente MD Primary Care Provider: Chencho Lopez, DO - HPI HPI: Mrs. Johnson is an 83-year-old woman who presented to [facility] on 10/28/18 for exacerbation of bronchiectasis with failed outpatient treatment. Infectious disease was consulted for recommendations of antibiotics today by pulmonology. In short, Mrs. Johnson is an 83-year-old woman with history of bronchiectasis which has been treated in the outpatient setting by [facility] for quite some time. The patient has been having increased cough with sputum production for the past 5 weeks has been unable to be treated successfully in the outpat ient setting. The patient says that she has been on and off antibiotics over the past couple of weeks and nothing seems to be working. In addition of this, the patient has had 2 shots of Rocephin, several shots of steroids, multiple Dosepaks of Levaquin, azithromycin, and steroids. She says that none of these things seem to be helping her in the problems seem to be getting worse overall. She does admit to feelings of fever in the outpatient setting, and has had 2 elevated temperatures of 101.0 in the 2 days preceding admission. She states that she had been managing things acceptably well up until the week or 2 prior to admission at which time she tried to trim her bushes outside and she feels that the pollen really upset her disease making it to difficult to bear. She had spoken with her oracle specialist, Dr. Batista, and he advised admission for IV antibiotics as an inpatient. In the emergency department, the patient had labs which did demonstrate a mildly elevated WBC of 13.5. In addition of this, she was tachycardic with heart rate of 110. She otherwise did not meet any other sepsis criteria at that time. She was placed on intravenous cefepime 1g every 8 hours, and admitted for observation. The patient seems to have been improving since the time of admission. Significantly, the patient has had positive sputum cultures in 06/01 for Levaquin insensitive pseudomonas aeruginosa however no other cultures have been positive. - ROS Review of Systems: Constitutional: Admits to fever, generalized fatigue Head/Neck: Denies GUAN, neck stiffness EENT: Denies vision changes/blurriness, rhinorrhea, congestion, sore throat CVS: Denies chest pain, palpitations, CLEMONS, orthopnea, edema, PND Pulm: Admits to shortness of breath, cough, sputum production GI: Denies nausea, abdominal pain. Admits to some fecal incontinence associated with severe coughing fits. Denies diarrhea in general. : Denies dysuria, increased frequency, urgency, hematuria Heme: Denies ease of bleeding or bruising MSK: Denies joint pain, limited ROM Skin: Denies rashes, ulcers, color changes Neuro: Denies GUAN, paresthesias, focal deficits, ataxia - Results CBC & Chem 7: 10/30/18 04:40 10/30/18 04:40 - Exam Vitals: Temp Pulse Resp BP Pulse Ox 98.0 F 81 18 161/78 91 10/30/18 07:53 10/30/18 07:53 10/30/18 10:23 10/30/18 07:53 10/30/18 10:23 Exam: Gen: Vitals noted. No acute distress. Eyes: anicteric sclerae, moist conjunctivae; no lid-lag; Pupils equal and reactive to light HENT: Atraumatic; oropharynx clear with moist mucous membranes and no mucosal ulcerations; normal hard and soft palate Neck: Trachea midline; supple, no thyromegaly or lymphadenopathy Cardiac: RRR, no murmur, +S1/S2 Pulmonary: Diffuse inspiratory and expiratory wheezing which are noted more prominently in the bases however can be heard throughout. No discrete area of crackles or rhonchi. Abdomen: soft, nontender, no guarding. No masses or hepatosplenomegaly MSK: ROM intact, no joint swelling noted Extremities: no BLE edema, nontender calf, no cyanosis or clubbing Skin: Normal temperature, turgor and texture; no rash, ulcers or subcutaneous nodules Neuro: moves all extremities, no focal deficits. Psych: Appropriate mood and behavior. A&Ox3 Albuterol Neb [AccuNeb] 1.25 mg IH DAILY PRN 05/30/17 [History] Albuterol Sulfate [Proair Hfa] 1 puff IH DAILY PRN 05/30/17 [History] Fluticasone/Salmeterol [Advair 250-50 Diskus] 1 puff IH BID 05/30/17 [History] Acetylcysteine [Nac] 500 mg PO DAILY 10/28/18 [History] Calcium Lactate 100 mg PO TID 10/28/18 [History] Ergocalciferol (VITAMIN D2) [Vitamin D2] 2,000 unit PO TID 10/28/18 [History] Non-Formulary Medication 0 each PO DAILY 10/28/18 [History] [place]-3S/Dha/Epa/Fish Oil/D3 [Cardio [place] Benefits Softgel] 1 each PO TID 10/28/18 [History] predniSONE [PredniSONE] 20 mg PO BID 10/28/18 [History] Cefepime HCl 2 gm IJ DAILY #9 vial 10/30/18 [Rx] Allergy/AdvReac Type Severity Reaction Status Date / Time codeine Allergy See Verified 10/28/18 10:56 Comments moxifloxacin [From Avelox] Allergy See Verified 10/28/18 10:56 Comments sulfamethoxazole Allergy See Verified 10/28/18 10:56 [From Septra] Comments trimethoprim [From Septra] Allergy See Verified 10/28/18 10:56 Comments - Assessment and Plan (1) Sepsis Current Visit: Yes Status: Resolved Sepsis secondary bacterial infection alongside bronchiectasis exacerbation SIRS Criteria on arrival: WBC 13.5, HR 110. Suspected source, bronchiectasis Chest x-ray 10/27/18 demonstrated persistent interstitial opacities bilaterally with bronchiectasis Labs resolved and become unremarkable overall Vitals improved and become normal Culture 10/27/18 blood NGTD 2 06/01/17 sputum Pseudomonas aeruginosa, Levaquin insensitive Antibiotic Cefepime 1 g IV every 8 hours day 4 Recommendation -Place powerglide for outpatient IV antibiotics as she has failed PO, has insensitive Pseudomonas which is likely persistent/colonized -Cefepime 2 g IV daily 14 day total duration, stop date 11/09. Dose adjusted for creatinine clearance 31. Prescription printed and given to case briefer. -Given poor response to oral antibiotics in the past, may benefit from her sl ides antibiotics in the future as outpatient. -Recommend follow-up with pulmonology. 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 Will require IV antibiotics to reach resolution Treatment plan as above Qualifiers: Bronchiectasis type: with acute exacerbation Qualified Code(s): J47.1 - Bronchiectasis with (acute) exacerbation SNOMED Code(s): 51092481 (3) Hypertension Current Visit: Yes Status: Suspected Hypertension, management per primary team Qualifiers: Hypertension type: unspecified Qualified Code(s): I10 - Essential (primary) hypertension SNOMED Code(s): 43735948 Past Med Surg Social Fam HX - Past Medical History Medical history: pulmonary embolus, other Additional medical history: LUNG DISEASE Psychiatric history: no psych history - Past Surgical History Surgical History: non-contributory, hysterectomy Additional surgical history: ingrid filter, left lung - Social History Smoking Status: 2nd Hand Smoke Exposure Smokeless Tobacco Status: No Alcohol use: none Drug use: none - Family History Mother Name: Yuki Family Member Ethnicity: Non- Age at : 69 Cause of : Stroke Hx Family Cardiac Disorders: Yes Hx Family Neurologic Disorders: Yes Sister Living Status: Still Living Hx Family Cardiac Disorders: Yes (htn) Consult Discharge Plan - Plan Instructions: Prednisone (By mouth), Cefepime (Injection), Pneumonia (DC) Referrals: Chencho Lopez DO [Primary Care Provider] - 11/06/18 10:45 am (Please follow up as schedule...) Lyndon Dyson MD [Partnered Physician] - (web requested 10/30/2018) Prescriptions: Cefepime HCl 2 gm IJ DAILY #9 vial - Attending Attestation I examined this patient and my medical decision-making was reviewed with the Resident Physician. I agree with the documented findings, disposition and treatment plan as described except to the extent set forth below. This is an addendum dictated by resident physician. Please refer to resident's. Patient is a 51-year-old woman with chronic bronchiectasis has been having recurrent infection recurrent cough sputum production feeling well. Patient has a history of pseudomonas aeruginosa that was pansensitive with the exception of fluoroquinolone back in May of this year. Patient was started on cefepime now and clinically is doing better. Patient tells me she is feeling significantly better no fevers no chills he better no cough or sputum production. Assessment and plan: 1.Sepsis 2.Bronchiectasis 3.Hypertension 4.Pneumonia 5.Chronic kidney disease stage IV Recommendations: Recommend continuing cefepime to finish a 14 day course Patient is currently on day 4 Patient creatinine clearance 31 measured by Lencho with the pharmacist Based on that we will decrease the cefepime dose to 2 g IV every 24 hours Patient will need a power glide prior to discharge Repeat CBC, BMP in 1 week
--- NOTE | 2018-10-30 11:48 | Discharge Summary ---
Orders not resulted at time of discharge: Pending orders 10/27/18 14:49 Culture,Sputum with Gram Stain [RM] Stat 10/27/18 15:15 Culture,Blood [BC] Stat 10/29/18 02:01 Legionella Type 1 Antibody,IgM AM 0400 10/29/18 07:42 Culture,Sputum with Gram Stain [RM] Routine Date of Encounter: 10/30/18 Time of Encounter: 11:45 - Discharge Diagnosis (1) Bronchiectasis Priority: Primary Status: Chronic Qualifiers: Bronchiectasis type: with acute exacerbation Qualified Code(s): J47.1 - Bronchiectasis with (acute) exacerbation (2) Community acquired pneumonia Priority: Primary Status: Acute Qualifiers: Laterality: unspecified laterality Qualified Code(s): J18.9 - Pneumonia, unspecified organism (3) Urine frequency Priority: Secondary Status: Chronic (4) Hypertension Priority: Secondary Status: Suspected Qualifiers: Hypertension type: unspecified Qualified Code(s): I10 - Essential (primary) hypertension Hospital course: Ms. Johnson is a 83 year old female past medical history of bronchiectasis who presented to the ER with productive cough of greenish sputum that has been progressively worsening over the last 2 months. Patient was treated in the outpatient settings with multiple oral antibiotics without improvements of her symptoms. Patient was admitted to the hospital due to acute bronchiectasis, patient managed with broad spectrum IV antibiotics and steroids. ID consulted due to Hx of pseudomonas with intermediate sensitivity to fluoroquinolones. ID recommended cefepime 2gm/iv daily x9 days. Patient hemodynamically stable to be discharged home. on antibiotics and steroids taper. Recommended to follow up with pulmonology within a week of hospital discharge. - Time Spent with Patient Total time spent providing and/or coordinating discharge services: Time spent: Greater than 30 minutes (35) - Discharge Medications Prescriptions: New Cefepime HCl 2 gm IJ DAILY #9 vial Continued Albuterol Sulfate [Proair Hfa] 1 puff IH DAILY PRN PRN Reason: Shortness Of Breath Albuterol Neb [AccuNeb] 1.25 mg IH DAILY PRN PRN Reason: Shortness Of Breath Fluticasone/Salmeterol [Advair 250-50 Diskus] 1 puff IH BID Acetylcysteine [Nac] 500 mg PO DAILY Calcium Lactate 100 mg PO TID Ergocalciferol (VITAMIN D2) [Vitamin D2] 2,000 unit PO TID Non-Formulary Medication 0 each PO DAILY [place]-3S/Dha/Epa/Fish Oil/D3 [Cardio [place] Benefits Softgel] 1 each PO TID predniSONE [PredniSONE] 20 mg PO BID Discontinued Azithromycin 250 mg PO DAILY Home Medications: Albuterol Neb [AccuNeb] 1.25 mg IH DAILY PRN 05/30/17 [History] Albuterol Sulfate [Proair Hfa] 1 puff IH DAILY PRN 05/30/17 [History] Fluticasone/Salmeterol [Advair 250-50 Diskus] 1 puff IH BID 05/30/17 [History] Acetylcysteine [Nac] 500 mg PO DAILY 10/28/18 [History] Calcium Lactate 100 mg PO TID 10/28/18 [History] Ergocalciferol (VITAMIN D2) [Vitamin D2] 2,000 unit PO TID 10/28/18 [History] Non-Formulary Medication 0 each PO DAILY 10/28/18 [History] [place]-3S/Dha/Epa/Fish Oil/D3 [Cardio [place] Benefits Softgel] 1 each PO TID 10/28/18 [History] predniSONE [PredniSONE] 20 mg PO BID 10/28/18 [History] Cefepime HCl 2 gm IJ DAILY #9 vial 10/30/18 [Rx] Allergies/Adverse Reactions: Allergy/AdvReac Type Severity Reaction Status Date / Time codeine Allergy See Verified 10/28/18 10:56 Comments moxifloxacin [From Avelox] Allergy See Verified 10/28/18 10:56 Comments sulfamethoxazole Allergy See Verified 10/28/18 10:56 [From Septra] Comments trimethoprim [From Septra] Allergy See Verified 10/28/18 10:56 Comments Date of admission: 10/28/18 14:38 Primary care physician: Chencho Lopez, Consults: 10/27/18 14:20 Consult to Pulmonology [CONS] Stat Consulting Provider: [facility] Reason for Consult: SOB Time Notified: 14:20 Call Completed: Yes 10/27/18 14:46 Consult to Infectious Diseases [CONS] Stat Consulting Provider: Infectious Disease Hoyt Reason for Consult: MultiDrug-resistant upper respiratory infection Time Notified: 14:47 Call Completed: Yes 06/14/19 17:42 Consult to Nurse Navigator [CONS] Routine Comment: - Constitutional Vitals: Temp Pulse Resp BP Pulse Ox 97.9 F 94 18 165/83 90 10/30/18 11:42 10/30/18 11:42 10/30/18 11:42 10/30/18 11:42 10/30/18 11:42 General appearance: Present: A&O X 3 Exam: Vitals: Reviewed General: Alert and oriented x4. In no distress Cardiovascular: RRR, normal S1 & S2, no rubs, murmurs or gallops. Lungs: Rales b/lbut improved when compared with previous 2 days, no wheezes or crackles. Abdomen: Soft, non-tender, no rigidity. NABS in all 4 quadrants Extremities: No edema Neurological: No focal neurological exam Rest of the physical exam is non contributory - Patient Status Disposition: Home, Self-Care Condition: Good Functional capacity at discharge: independent ambulation Overall status at discharge: patient is progressing back to baseline - Discharge Instructions Instructions: Prednisone (By mouth), Pneumonia (DC) Follow Up With: Chencho Lopez DO [Primary Care Provider] - 11/06/18 10:45 am (Please follow up as schedule...) Lyndon Dyson MD [Partnered Physician] - (web requested 10/30/2018) - Diet and Activity Activity: resume usual activities as tolerated Diet: low salt diet
--- NOTE | 2018-10-30 11:57 | Pulmonology Progress Note ---
Date of Encounter: 10/30/18 Time of Encounter: 11:00 Assessment and Plan (1) Bronchiectasis Current Visit: Yes Status: Chronic Patient presented with acute exacerbation of bronchiectasis patient symptoms are better back to baseline encourage her to use incentive spirometry and flutter valve pain in the bronchopulmonary hygiene. Waiting for infectious disease recommendation for antibiotics on discharge. Patient grew Pseudomonas might need IV antibiotic therapy appreciate ID recommendation pulmonary will sign off at this point. Qualifiers: Bronchiectasis type: with acute exacerbation Qualified Code(s): J47.1 - Bronchiectasis with (acute) exacerbation Subjective Principal diagnosis: Bronchiectasis Interval history: Patient's symptoms are lot better compensated sputum production is at baseline patient denies any chest pain chest tightness denies any palpitation denies any other constitutional symptoms. Objective PUL Vital signs: Last Vital Signs Temp 97.9 F 10/30/18 11:42 Pulse 94 10/30/18 11:42 Resp 18 10/30/18 11:42 BP 165/83 10/30/18 11:42 Pulse Ox 90 10/30/18 11:42 General appearance: no acute distress Eyes: nonicteric Auscultation: bilateral: wheezes (Minimal scattered wheezes) Cardiovascular: regular rate and rhythm Gastrointestinal: normoactive bowel sounds Extremities: no edema Musculoskeletal: no deformities Gait: normal gait normal mental status, non-focal exam mood appropriate Results - Laboratory Findings CBC and BMP: 10/30/18 04:40 10/30/18 04:40 PT/INR, D-dimer PT 10.8 Seconds (9.4-12.1) 10/28/18 01:52 Abnormal lab findings: Abnormal lab results WBC 13.5 K/mcL (4.3-11.1) H 10/27/18 15:00 MCH 27.9 pg (28.0-33.3) L 10/28/18 01:52 MCHC 31.2 g/dL (31.6-35.5) L 10/30/18 04:40 MPV 9.3 fL (9.4-12.4) L 10/27/18 15:00 12.9 K/mcL (1.6-8.9) H 10/27/18 15:00 0.5 K/mcL (0.6-4.6) L 10/28/18 01:52 Potassium 3.4 mEq/L (3.5-5.1) L 10/28/18 01:52 Carbon Dioxide 33 mEq/L (23-29) H 10/27/18 15:00 0.39 mg/dL (0.60-1.20) L 10/30/18 04:40 33 (6-26) H 10/30/18 04:40 Glucose 124 mg/dL (70-105) H 10/30/18 04:40 Phosphorus 2.6 mg/dL (2.7-4.5) L 10/28/18 01:52 6.3 g/dL (6.4-8.9) L 10/28/18 01:52 3.4 g/dL (3.5-5.7) L 10/28/18 01:52 LDL Cholesterol, Calc 121 mg/dL (0-99) H 10/28/18 01:52 62 mg/dL (40-59) H 10/28/18 01:52 Trace (Negative) H 10/27/18 18:35 Ur Leukocyte Esterase Small (Negative) H 10/27/18 18:35 30-50 per hpf (0-3) H 10/27/18 18:35 Ur Squamous Epith Cells Many per lpf (None-Few) H 10/27/18 18:35 - Microbiology Findings Microbiology Findings: Microbiology, Last 48 Hours 10/28/18 14:43 Streptococcus pneumoniae Antigen (M - Final Urine,Random-Not Preferred - Clinical Findings Intake & Output: Intake & Output 10/29/18 10/30/18 10/30/18 23:59 07:59 15:59 Intake Total 60 / 1280 10 370 360 / 370 Balance 60 / 1280 360 / 370 Weight 56.2 kg Consult Discharge Plan - Plan Instructions: Prednisone (By mouth), Pneumonia (DC) Referrals: Chencho Lopez DO [Primary Care Provider] - 11/06/18 10:45 am (Please follow up as schedule...) Lyndon yDson MD [Partnered Physician] - (web requested 10/30/2018) Prescriptions: Cefepime HCl 2 gm IJ DAILY #9 vial
--- NOTE | 2018-10-30 15:43 | Physician Discharge Referral ---
Home Health/Hosp Referral Info Transfer to: Home Health - Diagnosis (1) Bronchiectasis Priority: Primary Status: Chronic (2) Community acquired pneumonia Priority: Secondary Status: Acute (3) Urine frequency Priority: Secondary Status: Chronic (4) Hypertension Status: Suspected - Respiratory Orders None Smoking Cessation: Smoking cessation has been advised. For more information, call the [place] Tobacco Quit Line at 1-198-WJPO-NOW. - Diet/Nutrition Diet/Nutrition Orders: Regular - Services Needed Following services are medically necessary services: Nursing, Home Health Aide - Transfer Medications Prescriptions: Cefepime HCl 2 gm IJ DAILY #9 vial Home Medications: Albuterol Neb [AccuNeb] 1.25 mg IH DAILY PRN 05/30/17 [History] Albuterol Sulfate [Proair Hfa] 1 puff IH DAILY PRN 05/30/17 [History] Fluticasone/Salmeterol [Advair 250-50 Diskus] 1 puff IH BID 05/30/17 [History] Acetylcysteine [Nac] 500 mg PO DAILY 10/28/18 [History] Calcium Lactate 100 mg PO TID 10/28/18 [History] Ergocalciferol (VITAMIN D2) [Vitamin D2] 2,000 unit PO TID 10/28/18 [History] Non-Formulary Medication 0 each PO DAILY 10/28/18 [History] [place]-3S/Dha/Epa/Fish Oil/D3 [Cardio [place] Benefits Softgel] 1 each PO TID 10/28/18 [History] predniSONE [PredniSONE] 20 mg PO BID 10/28/18 [History] Cefepime HCl 2 gm IJ DAILY #9 vial 10/30/18 [Rx] Allergies/Adverse Reactions: Allergy/AdvReac Type Severity Reaction Status Date / Time codeine Allergy See Verified 10/28/18 10:56 Comments moxifloxacin [From Avelox] Allergy See Verified 10/28/18 10:56 Comments sulfamethoxazole Allergy See Verified 10/28/18 10:56 [From Septra] Comments trimethoprim [From Septra] Allergy See Verified 10/28/18 10:56 Comments Certification: Further, I certify that my clinical findings support that this patient is homebound (i.e. absences from home require considerable and taxing effort and are for medical reasons or roman catholic services or infrequently or short duration when for other reasons) because: Homebound Reason: Patient requires assistance of a person or device to safely leave home Attestation: My signature below is to certify that this patient is under my care and that I, or nurse practitioner, or a physician's machine operator assistant working with me, has a [id number] encounter with this patient.
[2018-10-30 16:36] VITALS: BP 147/71
[2018-10-31] MEDS ORDERED: Cefepime HCl 2,000 MG in Water for inj. (sterile) 20 ML 20 ML IVP SCH (06:00)
--- NOTE | 2018-10-31 12:30 | Electrocardiograph Report ---
[place] [id number] Test Date: 2018-10-27 Pat Name: Jacques Johnson Department: EXAM21 Room: 2A Gender: F [employer] Consultant: : [id number] Requested By: Zev Pizano Order Number: [id number] Reading MD: Alayna Goodwin Measurements Intervals [place] Rate: 95 P: 70 W[place]: 146 QRS: 22 QRSD: 86 T: 45 QT: 349 QTc: 439 Interpretive Statements Sinus rhythm Left atrial enlargement Low voltage, precordial leads Electronically Signed On 10-31-2018 12:28:45 EDT by Alayna Goodwin
== END 2018-10-30 18:21 | disposition home health service (06) | DRG 191 ==
LOC: 2ANU 13:51 → EMEROOARM 13:51 → 2ANU 19:48 → SUATTDRO 10-28 14:38
PROVIDERS: ADMIT Internal Medicine Nephrology; ATTEND Internal Medicine

== ENCOUNTER 2020-11-25 23:35 | Inpatient (IN) ==
[2020-11-26 05:52] LABS: Bilirubin,Urine Negative (Negative); Blood,Urine Trace (Negative); Clarity,Urine Clear (Clear); Color,Urine Light-Yellow (Yellow); Glucose,Urine (UA) Normal (Normal); Hyaline Casts,Urine Few per lpf (None Seen); Ketones,Urine Negative (Negative); Leukocyte Esterase,Urine Moderate (Negative); Mucus,Urine Few per lpf (None-Few); Nitrite,Urine Negative (Negative); PH,Urine 6.5 pH Units (5.0-8.0); Protein,Urine Trace mg/dL (Neg-Trace); Specific Gravity,Urine 1.012 (1.010-1.025); Squamous Epithelial Cell,Urine Few per hpf (None-Few); Urobilinogen,Urine Normal (Normal)
[2020-11-26 05:55] LABS: Basophils % 0.2 %; Eosinophils % 0.1 %; Hematocrit 43.2 % (35.3-44.9); Hemoglobin 13.5 g/dL (11.5-15.4); Immature Granulocytes % 0.5 % (0-4); Lymphocytes # 2.1 K/mcL (0.6-4.6); Lymphocytes % 16.2 %; Mean Corpuscular HGB Conc 31.3 g/dL (31.6-35.5); Mean Corpuscular Hemoglobin 28.1 pg (28.0-33.3); Mean Platelet Volume 9.5 fL (9.4-12.4); Monocytes # 0.9 K/mcL (0.0-1.3); Monocytes % 6.9 %; Neutrophils # 9.8 K/mcL (1.6-8.9); Platelet Count 253 K/mcL (140-400); Red Cell Distribution Width 14.7 % (11.5-14.5); Segmented Neutrophils % 76.1 %; White Blood Count 12.8 K/mcL (4.3-11.1)
[2020-11-26 06:09] LABS: Alanine Aminotransferase 13 Units/L (7-52); Albumin 3.7 g/dL (3.5-5.7); Albumin/Globulin Ratio 1.1 (1.1-2.2); Alkaline Phosphatase 79 Units/L (34-104); Aspartate Amino Transferase 17 Units/L (13-39); BUN/Creatinine Ratio 22 (6-26); Bilirubin,Direct 0.1 mg/dL (0.0-0.2); Bilirubin,Indirect 0.6 mg/dL (0.0-1.0); Bilirubin,Total 0.7 mg/dL (0.3-1.0); Blood Urea Nitrogen 12 mg/dL (8-23); Calcium 9.2 mg/dL (8.6-10.3); Carbon Dioxide 31 mEq/L (23-29); Chloride 100 mEq/L (98-107); Globulin 3.4 g/dL (2.4-3.5); Glucose 104 mg/dL (70-105); Lipase 31 Units/L (11-82); Osmolality,Calculated 284 (280-300); Potassium 3.7 mEq/L (3.5-5.1); Sodium 137 mEq/L (136-145); Total Protein 7.1 g/dL (6.4-8.9); eGFR For African Americans > 60 (> 60); eGFR For Non-African Americans > 60 (> 60)
[2020-11-26 06:28] LABS: Troponin I < 0.03 ng/mL (< 0.04)
[2020-11-26] MEDS ORDERED: cefTRIAXone 1,000 MG in 0.9 % Sodium Chloride Mini Bag 100 ML IVPB ONE (06:38)
[2020-11-26] MEDS ORDERED: Azithromycin 500 MG in 0.9 % Sodium Chloride 250 ML IVPB ONE (06:38)
[2020-11-26] MEDS ORDERED: Acetaminophen 325 MG TABLET PO PRN (08:14)
[2020-11-26] MEDS ORDERED: Naloxone 0.4 MG/ML INJ IVP PRN (08:14)
[2020-11-26] MEDS ORDERED: Ondansetron 4 MG/2 ML VIAL IVP PRN (08:14)
[2020-11-26] MEDS ORDERED: Perflutren Lipid Microsphere 1.3 ML in 0.9 % Sodium Chloride 8.7 ML IVP PRN (08:22)
[2020-11-26] MEDS: Acetylcysteine 10% 2 ML INHSOL IH SCH ×3 (11:19→22:57)
[2020-11-26] MEDS: Ipratropium Neb 0.5 MG NEBULIZER IH SCH ×3 (11:27→22:57)
[2020-11-26] MEDS: Levalbuterol Neb 0.63 MG/3 ML IH SCH ×3 (11:27→22:57)
[2020-11-27 02:45] LABS: Basophils % 0.4 %; Eosinophils % 0.8 %; Hematocrit 41.1 % (35.3-44.9); Hemoglobin 12.6 g/dL (11.5-15.4); Immature Granulocytes % 0.2 % (0-4); Lymphocytes # 1.3 K/mcL (0.6-4.6); Mean Corpuscular HGB Conc 30.7 g/dL (31.6-35.5); Mean Corpuscular Hemoglobin 28.3 pg (28.0-33.3); Mean Corpuscular Volume 92.4 fL (83.0-100.0); Mean Platelet Volume 10.8 fL (9.4-12.4); Monocytes # 0.5 K/mcL (0.0-1.3); Monocytes % 10.2 %; Neutrophils # 3.4 K/mcL (1.6-8.9); Platelet Count 174 K/mcL (140-400); Red Blood Count 4.45 M/mcL (3.82-4.97); Red Cell Distribution Width 14.6 % (11.5-14.5); Segmented Neutrophils % 63.4 %
[2020-11-27 02:48] LABS: White Blood Count 5.3 K/mcL (4.3-11.1)
[2020-11-27 03:01] LABS: BUN/Creatinine Ratio 33 (6-26); Blood Urea Nitrogen 16 mg/dL (8-23); Calcium 8.7 mg/dL (8.6-10.3); Carbon Dioxide 30 mEq/L (23-29); Chloride 105 mEq/L (98-107); Glucose 107 mg/dL (70-105); Magnesium 2.2 mg/dL (1.6-2.6); Osmolality,Calculated 292 (280-300); Potassium 3.6 mEq/L (3.5-5.1); Sodium 140 mEq/L (136-145); eGFR For African Americans > 60 (> 60); eGFR For Non-African Americans > 60 (> 60)
[2020-11-27] MEDS: Levalbuterol Neb 0.63 MG/3 ML IH SCH ×4 (03:54→23:06)
[2020-11-27] MEDS: Acetylcysteine 10% 2 ML INHSOL IH SCH ×4 (03:54→23:06)
[2020-11-27] MEDS: Ipratropium Neb 0.5 MG NEBULIZER IH SCH ×4 (03:54→23:06)
[2020-11-27] MEDS: cefTRIAXone 1,000 MG in 0.9 % Sodium Chloride Mini Bag 100 ML IVPB SCH (08:23)
[2020-11-27] MEDS: *HR* Enoxaparin 40 MG/0.4 ML SYRINGE SQ SCH (08:25)
[2020-11-27] MEDS: Azithromycin 500 MG in 0.9 % Sodium Chloride 250 ML IVPB SCH ×2 (08:25→09:33)
[2020-11-27 21:50] LABS: Adenovirus Not Detected (Not Detect); Bordetella Pertussis Not Detected (Not Detect); Chlamydophila pneumoniae Not Detected (Not Detect); Coronavirus 229E Not Detected (Not Detect); Coronavirus HKU1 Not Detected (Not Detect); Coronavirus NL63 Not Detected (Not Detect); Coronavirus OC43 Not Detected (Not Detect); Human Metapneumovirus Not Detected (Not Detect); Human Rhinovirus/Enterovirus Not Detected (Not Detect); Influenza A Subtype 2009 H1 Not Detected (Not Detect); Influenza B Not Detected (Not Detect); Mycoplasma pneumoniae Not Detected (Not Detect); Parainfluenza Virus 1 Not Detected (Not Detect); Parainfluenza Virus 2 Not Detected (Not Detect); Parainfluenza Virus 3 Not Detected (Not Detect); Parainfluenza Virus 4 Not Detected (Not Detect); Respiratory Syncytial Virus Not Detected (Not Detect); SARS-CoV-2 Not Detected (Not Detect)
[2020-11-27] MEDS: Budesonide/Formoterol 80/4.5 1 PUFF INH IH SCH (23:05)
[2020-11-28] MEDS: Ipratropium Neb 0.5 MG NEBULIZER IH SCH ×3 (03:29→16:32)
[2020-11-28] MEDS: Acetylcysteine 10% 2 ML INHSOL IH SCH ×3 (03:29→16:36)
[2020-11-28] MEDS: Levalbuterol Neb 0.63 MG/3 ML IH SCH ×3 (03:29→16:33)
[2020-11-28 06:58] VITALS: TEMP 97.9
[2020-11-28] MEDS: Budesonide/Formoterol 80/4.5 1 PUFF INH IH SCH (09:53)
[2020-11-28] MEDS: *HR* Enoxaparin 40 MG/0.4 ML SYRINGE SQ SCH ×2 (10:04→10:17)
[2020-11-28] MEDS: cefTRIAXone 1,000 MG in 0.9 % Sodium Chloride Mini Bag 100 ML IVPB SCH (10:05)
[2020-11-28] MEDS: Azithromycin 500 MG in 0.9 % Sodium Chloride 250 ML IVPB SCH (10:07)
[2020-11-28 11:00] VITALS: BP 159/72; PULSE 74
[2020-11-28 17:09] VITALS: O2SAT 93
== END 2020-11-28 17:30 | disposition home or self-care (01) | DRG 193 ==
LOC: 2NENU 23:35 → EMEROOARM 23:35 → 2NENU 11-26 09:13
PROVIDERS: ADMIT Pharmacist; ATTEND Pharmacist

== ENCOUNTER 2021-11-09 16:05 | Inpatient (IN) ==
[2021-11-09 19:12] LABS: Basophils % 0.2 %; Hematocrit 45.1 % (35.3-44.9); Hemoglobin 14.2 g/dL (11.5-15.4); Immature Granulocytes % 0.7 % (0-4); Lymphocytes # 1.3 K/mcL (0.6-4.6); Lymphocytes % 7.1 %; Mean Corpuscular HGB Conc 31.5 g/dL (31.6-35.5); Mean Corpuscular Hemoglobin 28.6 pg (28.0-33.3); Mean Corpuscular Volume 90.7 fL (83.0-100.0); Mean Platelet Volume 9.2 fL (9.4-12.4); Monocytes # 1.1 K/mcL (0.0-1.3); Neutrophils # 15.5 K/mcL (1.6-8.9); Platelet Count 397 K/mcL (140-400); Red Blood Count 4.97 M/mcL (3.82-4.97)
[2021-11-09 19:40] LABS: BUN/Creatinine Ratio 26 (6-26); Blood Urea Nitrogen 11 mg/dL (8-23); Calcium 9.4 mg/dL (8.6-10.3); Carbon Dioxide 35 mEq/L (23-29); Chloride 100 mEq/L (98-107); Glucose 110 mg/dL (70-105); Osmolality,Calculated 292 (280-300); Sodium 141 mEq/L (136-145); Troponin I < 0.03 ng/mL (< 0.04); eGFR For African Americans > 60 (> 60); eGFR For Non-African Americans > 60 (> 60)
[2021-11-09] MEDS ORDERED: Piperacillin/Tazobactam 3.375 GM in 0.9 % Sodium Chloride Mini Bag 100 ML IVPB ONE (20:51)
[2021-11-09] MEDS ORDERED: Ipratropium/Albuterol Neb 3 ML IH ONE (20:53)
[2021-11-09] MEDS ORDERED: Albuterol 2.5 MG/3 ML NEBULIZER IH ONE (20:53)
[2021-11-09] MEDS ORDERED: methylPREDNISolone 125 MG/2 ML VIAL IVP ONE (20:53)
[2021-11-09 23:19] LABS: ABG Base Excess 5 mEq/L (-2 to 3); ABG HCO3 32 mEq/L (21-27); ABG Oxygen Saturation 95 % (95-98); ABG PCO2 54 mmHg (35-45); ABG PH 7.38 pH Units (7.32-7.45); ABG PO2 81 mmHg (85-104); ABG TCO2 34 mEq/L (20-26); Blood Gas Pressure Support 5 cm H2O
[2021-11-10] MEDS ORDERED: Acetaminophen 325 MG TABLET PO PRN (01:42)
[2021-11-10] MEDS ORDERED: Naloxone 0.4 MG/ML INJ IVP PRN (01:42)
[2021-11-10] MEDS ORDERED: Ondansetron 4 MG/2 ML VIAL IVP PRN (01:42)
[2021-11-10 03:05] LABS: Basophils % 0.1 %; Hematocrit 40.9 % (35.3-44.9); Immature Granulocytes % 0.5 % (0-4); Lymphocytes % 1.1 %; Mean Corpuscular HGB Conc 31.8 g/dL (31.6-35.5); Mean Corpuscular Hemoglobin 28.8 pg (28.0-33.3); Mean Corpuscular Volume 90.7 fL (83.0-100.0); Mean Platelet Volume 9.4 fL (9.4-12.4); Monocytes # 0.2 K/mcL (0.0-1.3); Monocytes % 0.9 %; Neutrophils # 21.2 K/mcL (1.6-8.9); Platelet Count 366 K/mcL (140-400); Red Blood Count 4.51 M/mcL (3.82-4.97); Red Cell Distribution Width 14.2 % (11.5-14.5); Segmented Neutrophils % 97.4 %; White Blood Count 21.8 K/mcL (4.3-11.1)
[2021-11-10 03:09] LABS: Lymphocytes # 0.2 K/mcL (0.6-4.6)
[2021-11-10 03:24] LABS: Alanine Aminotransferase 14 Units/L (7-52); Albumin 3.2 g/dL (3.5-5.7); Alkaline Phosphatase 69 Units/L (34-104); Aspartate Amino Transferase 13 Units/L (13-39); BUN/Creatinine Ratio 24 (6-26); Bilirubin,Total 0.4 mg/dL (0.3-1.0); Blood Urea Nitrogen 12 mg/dL (8-23); Carbon Dioxide 34 mEq/L (23-29); Chloride 100 mEq/L (98-107); Globulin 3.2 g/dL (2.4-3.5); Glucose 157 mg/dL (70-105); Magnesium 2.2 mg/dL (1.6-2.6); Osmolality,Calculated 293 (280-300); Phosphorous 3.5 mg/dL (2.7-4.5); Sodium 140 mEq/L (136-145); Total Protein 6.4 g/dL (6.4-8.9); eGFR For African Americans > 60 (> 60); eGFR For Non-African Americans > 60 (> 60)
[2021-11-10] MEDS ORDERED: Albuterol 2.5 MG/3 ML NEBULIZER IH PRN (03:52)
[2021-11-10] MEDS: Piperacillin/Tazobactam 3.375 GM in 0.9 % Sodium Chloride Mini Bag 100 ML IVPB SCH ×3 (04:59→22:01)
[2021-11-10] MEDS: *HR* Heparin 5,000 UNIT/ML VIAL SQ SCH ×2 (04:59→17:53)
[2021-11-10 06:20] LABS: Adenovirus Not Detected (Not Detect); Bordetella Pertussis Not Detected (Not Detect); Chlamydophila pneumoniae Not Detected (Not Detect); Coronavirus 229E Not Detected (Not Detect); Coronavirus HKU1 Not Detected (Not Detect); Coronavirus NL63 Not Detected (Not Detect); Coronavirus OC43 Not Detected (Not Detect); Human Metapneumovirus Not Detected (Not Detect); Human Rhinovirus/Enterovirus Not Detected (Not Detect); Influenza A Subtype 2009 H1 Not Detected (Not Detect); Influenza B Not Detected (Not Detect); Mycoplasma pneumoniae Not Detected (Not Detect); Parainfluenza Virus 1 Not Detected (Not Detect); Parainfluenza Virus 2 Not Detected (Not Detect); Parainfluenza Virus 3 Not Detected (Not Detect); Parainfluenza Virus 4 DETECTED (Not Detect); Respiratory Syncytial Virus Not Detected (Not Detect); SARS-CoV-2 Not Detected (Not Detect)
[2021-11-10] MEDS: Ipratropium/Albuterol Neb 3 ML IH SCH ×4 (06:52→23:01)
[2021-11-10 07:11] LABS: ABG Base Excess 7 mEq/L (-2 to 3); ABG HCO3 34 mEq/L (21-27); ABG Oxygen Saturation 93 % (95-98); ABG PCO2 56 mmHg (35-45); ABG PH 7.39 pH Units (7.32-7.45); ABG PO2 71 mmHg (85-104); ABG TCO2 36 mEq/L (20-26); Blood Gas Pressure Support 30 cm H2O
[2021-11-10] MEDS: predniSONE 20 MG TABLET PO SCH (07:51)
[2021-11-10] MEDS: Melatonin 3 MG TABLET PO PRN (21:53)
[2021-11-11] MEDS: Ipratropium/Albuterol Neb 3 ML IH SCH ×4 (04:17→22:49)
[2021-11-11] MEDS: Piperacillin/Tazobactam 3.375 GM in 0.9 % Sodium Chloride Mini Bag 100 ML IVPB SCH (04:57)
[2021-11-11] MEDS: *HR* Heparin 5,000 UNIT/ML VIAL SQ SCH ×2 (04:57→18:26)
[2021-11-11] MEDS ORDERED: Iopamidol - 370 500 ML MLS IVP ONE (08:40)
[2021-11-11] MEDS: predniSONE 20 MG TABLET PO SCH (09:21)
[2021-11-11] MEDS: Doxycycline 100 MG in 0.9 % Sodium Chloride Mini Bag 100 ML IVPB SCH (18:26)
[2021-11-11] MEDS: Cefepime HCl 2,000 MG in 0.9 % Sodium Chloride 10 ML IVP SCH (18:27)
[2021-11-11] MEDS: Melatonin 3 MG TABLET PO PRN (20:35)
[2021-11-12] MEDS: Ipratropium/Albuterol Neb 3 ML IH SCH ×4 (04:01→22:59)
[2021-11-12 05:47] LABS: Basophils % 0.1 %; Eosinophils % 0.1 %; Hematocrit 40.8 % (35.3-44.9); Hemoglobin 12.6 g/dL (11.5-15.4); Immature Granulocytes % 0.4 % (0-4); Lymphocytes # 1.5 K/mcL (0.6-4.6); Lymphocytes % 13.7 %; Mean Corpuscular HGB Conc 30.9 g/dL (31.6-35.5); Mean Corpuscular Hemoglobin 28.8 pg (28.0-33.3); Mean Corpuscular Volume 93.4 fL (83.0-100.0); Mean Platelet Volume 9.7 fL (9.4-12.4); Monocytes # 0.7 K/mcL (0.0-1.3); Monocytes % 5.9 %; Neutrophils # 8.8 K/mcL (1.6-8.9); Platelet Count 334 K/mcL (140-400); Red Blood Count 4.37 M/mcL (3.82-4.97); Red Cell Distribution Width 14.2 % (11.5-14.5); Segmented Neutrophils % 79.8 %
[2021-11-12] MEDS: Doxycycline 100 MG in 0.9 % Sodium Chloride Mini Bag 100 ML IVPB SCH ×2 (06:01→18:23)
[2021-11-12] MEDS: *HR* Heparin 5,000 UNIT/ML VIAL SQ SCH ×2 (06:01→18:09)
[2021-11-12] MEDS: Cefepime HCl 2,000 MG in 0.9 % Sodium Chloride 10 ML IVP SCH ×2 (06:02→18:17)
[2021-11-12 06:08] LABS: BUN/Creatinine Ratio 24 (6-26); Blood Urea Nitrogen 11 mg/dL (8-23); Calcium 8.8 mg/dL (8.6-10.3); Carbon Dioxide 35 mEq/L (23-29); Chloride 101 mEq/L (98-107); Glucose 82 mg/dL (70-105); Magnesium 2.1 mg/dL (1.6-2.6); Osmolality,Calculated 290 (280-300); Phosphorous 2.9 mg/dL (2.7-4.5); Potassium 3.6 mEq/L (3.5-5.1); Sodium 141 mEq/L (136-145); eGFR For African Americans > 60 (> 60); eGFR For Non-African Americans > 60 (> 60)
[2021-11-12] MEDS: predniSONE 20 MG TABLET PO SCH (09:02)
[2021-11-12 09:10] LABS: A.calcoaceticus-baumannii cplx Not Detected (Not Detect); Bacteroides fragilis by PCR Not Detected (Not Detect); Candida albicans by PCR Not Detected (Not Detect); Candida auris by PCR Not Detected (Not Detect); Candida glabrata by PCR Not Detected (Not Detect); Candida krusei by PCR Not Detected (Not Detect); Candida parapsilosis by PCR Not Detected (Not Detect); Candida tropicalis by PCR Not Detected (Not Detect); Crypto. neoformans/gattii PCR Not Detected (Not Detect); Enterobacter cloacae Cmplx PCR Not Detected (Not Detect); Enterobacterales by PCR Not Detected (Not Detect); Enterococcus faecalis by PCR Not Detected (Not Detect); Enterococcus faecium by PCR Not Detected (Not Detect); Escherichia coli by PCR Not Detected (Not Detect); Klebs. pneumoniae group by PCR Not Detected (Not Detect); Klebsiella aerogenes by PCR Not Detected (Not Detect); Klebsiella oxytoca by PCR Not Detected (Not Detect); Proteus by PCR Not Detected (Not Detect); Pseudomonas aeruginosa by PCR Not Detected (Not Detect); Salmonella species by PCR Not Detected (Not Detect); Serratia marcescens by PCR Not Detected (Not Detect); Staph epidermidis by PCR Not Detected (Not Detect); Staph lugdunensis by PCR Not Detected (Not Detect); Staphylococcus aureus by PCR Not Detected (Not Detect); Staphylococcus by PCR Not Detected (Not Detect); Stenotrophomonas maltophilia Not Detected (Not Detect); Streptococcus agalactiae(B)PCR Not Detected (Not Detect); Streptococcus by PCR Not Detected (Not Detect); Streptococcus pneumoniae PCR Not Detected (Not Detect); Streptococcus pyogenes (A) PCR Not Detected (Not Detect)
[2021-11-12] MEDS: Acetylcysteine 10% 2 ML INHSOL IH SCH ×3 (09:41→23:01)
[2021-11-12] MEDS ORDERED: Lidocaine Viscous Oral Soln 15 ML SOLUTION MM ONE (10:41)
[2021-11-12] MEDS ORDERED: *HR* Midazolam HCl 5 MG/5 ML VIAL IVP ONE ×2 (10:41→11:27)
[2021-11-12] MEDS ORDERED: *HR* FentaNYL (PF) 100 MCG/2 ML VIAL IVP ONE (10:41)
[2021-11-12] MEDS: Ringers Solution, Lactated 1,000 ML IVC SCH (11:24)
[2021-11-12] MEDS ORDERED: *HR* FentaNYL (PF) 100 MCG/2 ML VIAL ONE (11:27)
[2021-11-12] MEDS ORDERED: Lidocaine Viscous Oral Soln 15 ML SOLUTION ONE (11:27)
[2021-11-12] MEDS: MethylPREDNISolone 40 MG/ML VIAL IVP SCH ×2 (13:43→18:13)
[2021-11-12] MEDS: 0.9 % Sodium Chloride 1,000 ML IVC SCH (13:44)
[2021-11-12] MEDS: carvediloL 6.25 MG TABLET PO SCH ×2 (13:44→18:06)
[2021-11-12] MEDS: amLODIPine 5 MG TABLET PO SCH (18:06)
[2021-11-13 03:15] LABS: Basophils % 0.2 %; Hematocrit 39.5 % (35.3-44.9); Hemoglobin 12.4 g/dL (11.5-15.4); Immature Granulocytes % 0.6 % (0-4); Lymphocytes # 0.5 K/mcL (0.6-4.6); Lymphocytes % 3.9 %; Mean Corpuscular HGB Conc 31.4 g/dL (31.6-35.5); Mean Corpuscular Volume 92.3 fL (83.0-100.0); Mean Platelet Volume 9.6 fL (9.4-12.4); Monocytes # 0.1 K/mcL (0.0-1.3); Neutrophils # 11.9 K/mcL (1.6-8.9); Platelet Count 304 K/mcL (140-400); Red Blood Count 4.28 M/mcL (3.82-4.97); Red Cell Distribution Width 14.1 % (11.5-14.5); Segmented Neutrophils % 94.3 %; White Blood Count 12.7 K/mcL (4.3-11.1)
[2021-11-13 03:19] LABS: BUN/Creatinine Ratio 36 (6-26); Blood Urea Nitrogen 16 mg/dL (8-23); Calcium 8.8 mg/dL (8.6-10.3); Carbon Dioxide 31 mEq/L (23-29); Chloride 101 mEq/L (98-107); Glucose 138 mg/dL (70-105); Magnesium 2.2 mg/dL (1.6-2.6); Osmolality,Calculated 291 (280-300); Phosphorous 3.1 mg/dL (2.7-4.5); Potassium 4.1 mEq/L (3.5-5.1); Sodium 139 mEq/L (136-145); eGFR For African Americans > 60 (> 60); eGFR For Non-African Americans > 60 (> 60)
[2021-11-13] MEDS: Ipratropium/Albuterol Neb 3 ML IH SCH ×3 (04:00→15:26)
[2021-11-13] MEDS: MethylPREDNISolone 40 MG/ML VIAL IVP SCH ×2 (05:07→17:52)
[2021-11-13] MEDS: Cefepime HCl 2,000 MG in 0.9 % Sodium Chloride 10 ML IVP SCH ×2 (05:07→17:53)
[2021-11-13] MEDS: *HR* Heparin 5,000 UNIT/ML VIAL SQ SCH ×2 (05:08→17:51)
[2021-11-13] MEDS: Doxycycline 100 MG in 0.9 % Sodium Chloride Mini Bag 100 ML IVPB SCH ×2 (05:09→17:55)
[2021-11-13] MEDS: carvediloL 6.25 MG TABLET PO SCH ×2 (08:13→17:49)
[2021-11-13] MEDS: amLODIPine 5 MG TABLET PO SCH (08:13)
[2021-11-13] MEDS: 0.9 % Sodium Chloride 1,000 ML IVC SCH (14:45)
[2021-11-13] MEDS: Ringers Solution, Lactated 1,000 ML IVC SCH (14:45)
[2021-11-14] MEDS: Ipratropium/Albuterol Neb 3 ML IH SCH ×5 (04:30→22:44)
[2021-11-14] MEDS: MethylPREDNISolone 40 MG/ML VIAL IVP SCH (05:51)
[2021-11-14] MEDS: Cefepime HCl 2,000 MG in 0.9 % Sodium Chloride 10 ML IVP SCH ×2 (05:54→17:11)
[2021-11-14] MEDS: Doxycycline 100 MG in 0.9 % Sodium Chloride Mini Bag 100 ML IVPB SCH ×2 (05:59→17:11)
[2021-11-14] MEDS: *HR* Heparin 5,000 UNIT/ML VIAL SQ SCH ×2 (06:00→17:11)
[2021-11-14 06:13] LABS: Basophils % 0.1 %; Hematocrit 39.7 % (35.3-44.9); Hemoglobin 12.3 g/dL (11.5-15.4); Immature Granulocytes % 0.6 % (0-4); Lymphocytes # 0.6 K/mcL (0.6-4.6); Lymphocytes % 5.6 %; Mean Corpuscular Hemoglobin 28.6 pg (28.0-33.3); Mean Corpuscular Volume 92.3 fL (83.0-100.0); Mean Platelet Volume 9.6 fL (9.4-12.4); Monocytes # 0.3 K/mcL (0.0-1.3); Monocytes % 2.6 %; Neutrophils # 9.2 K/mcL (1.6-8.9); Platelet Count 314 K/mcL (140-400); Red Cell Distribution Width 14.1 % (11.5-14.5); Segmented Neutrophils % 91.1 %; White Blood Count 10.1 K/mcL (4.3-11.1)
[2021-11-14 06:38] LABS: BUN/Creatinine Ratio 47 (6-26); Blood Urea Nitrogen 22 mg/dL (8-23); Calcium 8.8 mg/dL (8.6-10.3); Carbon Dioxide 31 mEq/L (23-29); Chloride 103 mEq/L (98-107); Glucose 131 mg/dL (70-105); Magnesium 2.1 mg/dL (1.6-2.6); Osmolality,Calculated 293 (280-300); Potassium 4.3 mEq/L (3.5-5.1); Sodium 139 mEq/L (136-145); eGFR For African Americans > 60 (> 60); eGFR For Non-African Americans > 60 (> 60)
[2021-11-14] MEDS: carvediloL 6.25 MG TABLET PO SCH ×2 (08:05→17:10)
[2021-11-14] MEDS: amLODIPine 5 MG TABLET PO SCH (08:06)
[2021-11-14] MEDS: dexAMETHasone 4 MG TABLET PO SCH (08:50)
[2021-11-14] MEDS: Acetylcysteine 10% 2 ML INHSOL IH SCH ×3 (10:50→22:44)
[2021-11-15] MEDS: Ipratropium/Albuterol Neb 3 ML IH SCH ×2 (03:46→10:53)
[2021-11-15] MEDS: Acetylcysteine 10% 2 ML INHSOL IH SCH ×2 (03:46→10:53)
[2021-11-15] MEDS: Cefepime HCl 2,000 MG in 0.9 % Sodium Chloride 10 ML IVP SCH (05:19)
[2021-11-15] MEDS: Doxycycline 100 MG in 0.9 % Sodium Chloride Mini Bag 100 ML IVPB SCH (05:20)
[2021-11-15] MEDS: *HR* Heparin 5,000 UNIT/ML VIAL SQ SCH (05:20)
[2021-11-15 07:04] LABS: Basophils % 0.1 %; Hematocrit 39.9 % (35.3-44.9); Hemoglobin 12.3 g/dL (11.5-15.4); Immature Granulocytes % 0.7 % (0-4); Lymphocytes # 1.1 K/mcL (0.6-4.6); Lymphocytes % 12.4 %; Mean Corpuscular HGB Conc 30.8 g/dL (31.6-35.5); Mean Corpuscular Hemoglobin 28.5 pg (28.0-33.3); Mean Corpuscular Volume 92.6 fL (83.0-100.0); Mean Platelet Volume 9.5 fL (9.4-12.4); Monocytes # 0.9 K/mcL (0.0-1.3); Monocytes % 9.8 %; Neutrophils # 6.9 K/mcL (1.6-8.9); Platelet Count 351 K/mcL (140-400); Red Blood Count 4.31 M/mcL (3.82-4.97); Red Cell Distribution Width 14.1 % (11.5-14.5)
[2021-11-15 07:25] LABS: BUN/Creatinine Ratio 33 (6-26); Blood Urea Nitrogen 16 mg/dL (8-23); Calcium 8.5 mg/dL (8.6-10.3); Carbon Dioxide 34 mEq/L (23-29); Chloride 104 mEq/L (98-107); Glucose 85 mg/dL (70-105); Osmolality,Calculated 290 (280-300); Phosphorous 2.4 mg/dL (2.7-4.5); Potassium 4.3 mEq/L (3.5-5.1); Sodium 140 mEq/L (136-145); eGFR For African Americans > 60 (> 60); eGFR For Non-African Americans > 60 (> 60)
[2021-11-15] MEDS: dexAMETHasone 4 MG TABLET PO SCH (07:55)
[2021-11-15] MEDS: amLODIPine 5 MG TABLET PO SCH (07:55)
[2021-11-15] MEDS: carvediloL 6.25 MG TABLET PO SCH (07:56)
[2021-11-15] MEDS ORDERED: Cholecalciferol (D-3) 1,000 UNIT (25MCG) TABLET PO SCH (09:00)
[2021-11-15] MEDS ORDERED: Cyanocobalamin (B-12) 1,000 MCG TABLET PO SCH (09:00)
[2021-11-15] MEDS ORDERED: Magnesium Oxide 400 MG TABLET PO SCH (09:00)
[2021-11-15 12:08] VITALS: BP 140/88; PULSE 86; TEMP 98.9; O2SAT 92
== END 2021-11-14 15:35 | disposition home health service (06) | DRG 193 ==
LOC: 3NENU 16:05 → EMEROOARM 16:05 → SUATTDRO 23:47 → 3NENU 11-10 00:25 → SUATTDRO 11-11 15:37
PROVIDERS: ADMIT Internal Medicine; ATTEND Pharmacist

== ENCOUNTER 2021-11-21 18:56 | Inpatient (IN) ==
[2021-11-21] MEDS ORDERED: Albuterol 2.5 MG/3 ML NEBULIZER IH ONE (19:59)
[2021-11-21] MEDS ORDERED: Ipratropium/Albuterol Neb 3 ML IH ONE (19:59)
[2021-11-21] MEDS ORDERED: methylPREDNISolone 125 MG/2 ML VIAL IVP ONE (20:00)
[2021-11-21 20:12] LABS: Basophils % 0.2 %; Hematocrit 39.6 % (35.3-44.9); Hemoglobin 12.5 g/dL (11.5-15.4); Immature Granulocytes % 0.6 % (0-4); Lymphocytes # 0.8 K/mcL (0.6-4.6); Lymphocytes % 6.3 %; Mean Corpuscular HGB Conc 31.6 g/dL (31.6-35.5); Mean Corpuscular Hemoglobin 28.9 pg (28.0-33.3); Mean Corpuscular Volume 91.5 fL (83.0-100.0); Mean Platelet Volume 9.5 fL (9.4-12.4); Monocytes # 0.8 K/mcL (0.0-1.3); Monocytes % 6.4 %; Neutrophils # 10.7 K/mcL (1.6-8.9); Platelet Count 351 K/mcL (140-400); Red Blood Count 4.33 M/mcL (3.82-4.97); Segmented Neutrophils % 86.5 %; White Blood Count 12.3 K/mcL (4.3-11.1)
[2021-11-21] MEDS ORDERED: Iopamidol - 370 500 ML MLS IVP ONE (20:16)
[2021-11-21 20:22] LABS: BUN/Creatinine Ratio 31 (6-26); Blood Urea Nitrogen 13 mg/dL (8-23); Calcium 9.1 mg/dL (8.6-10.3); Carbon Dioxide 36 mEq/L (23-29); Chloride 99 mEq/L (98-107); Glucose 105 mg/dL (70-105); Osmolality,Calculated 288 (280-300); Potassium 4.1 mEq/L (3.5-5.1); Sodium 139 mEq/L (136-145); Troponin I < 0.03 ng/mL (< 0.04); eGFR For African Americans > 60 (> 60); eGFR For Non-African Americans > 60 (> 60)
[2021-11-21 20:39] LABS: Alanine Aminotransferase 29 Units/L (7-52); Albumin 3.1 g/dL (3.5-5.7); Albumin/Globulin Ratio 0.9 (1.1-2.2); Alkaline Phosphatase 76 Units/L (34-104); Aspartate Amino Transferase 16 Units/L (13-39); Bilirubin,Direct 0.1 mg/dL (0.0-0.2); Bilirubin,Indirect 0.3 mg/dL (0.0-1.0); Bilirubin,Total 0.4 mg/dL (0.3-1.0); Globulin 3.4 g/dL (2.4-3.5); Total Protein 6.5 g/dL (6.4-8.9)
[2021-11-21 22:22] LABS: ABG Base Excess 9 mEq/L (-2 to 3); ABG HCO3 37 mEq/L (21-27); ABG Oxygen Saturation 91 % (95-98); ABG PCO2 65 mmHg (35-45); ABG PH 7.36 pH Units (7.32-7.45); ABG PO2 67 mmHg (85-104); ABG TCO2 39 mEq/L (20-26)
[2021-11-21] MEDS ORDERED: Meropenem 1,000 MG in 0.9 % Sodium Chloride 20 ML IVP ONE (23:00)
[2021-11-21] MEDS ORDERED: Acetaminophen 325 MG TABLET PO PRN (23:08)
[2021-11-21] MEDS ORDERED: Ondansetron 4 MG/2 ML VIAL IVP PRN (23:08)
[2021-11-21] MEDS ORDERED: Naloxone 0.4 MG/ML INJ IVP PRN (23:08)
[2021-11-21] MEDS ORDERED: Melatonin 3 MG TABLET PO PRN (23:08)
[2021-11-22] MEDS ORDERED: *HR* Heparin 5,000 UNIT/ML VIAL IVP ONE (00:48)
[2021-11-22] MEDS ORDERED: *HR* Heparin 5,000 UNIT/ML VIAL IVP PRN ×2 (00:48)
[2021-11-22] MEDS ORDERED: Heparin 25,000UNIT/250ML 1/2NS 25,000 UNIT/250 ML IV.SOLN IVC SCH (01:00)
[2021-11-22] MEDS: Acetylcysteine 10% 2 ML INHSOL IH SCH ×4 (03:17→22:58)
[2021-11-22] MEDS: Ipratropium/Albuterol Neb 3 ML IH SCH ×8 (03:21→22:57)
[2021-11-22 04:16] LABS: Hematocrit 40.5 % (35.3-44.9); Hemoglobin 12.3 g/dL (11.5-15.4); Mean Corpuscular HGB Conc 30.4 g/dL (31.6-35.5); Mean Corpuscular Hemoglobin 28.1 pg (28.0-33.3); Mean Corpuscular Volume 92.5 fL (83.0-100.0); Mean Platelet Volume 11.4 fL (9.4-12.4); Platelet Count 217 K/mcL (140-400); Red Blood Count 4.38 M/mcL (3.82-4.97); Red Cell Distribution Width 14.2 % (11.5-14.5); White Blood Count 15.8 K/mcL (4.3-11.1)
[2021-11-22 04:21] LABS: Heparin anti-factor XA UFH < 0.04 IU/mL (0.30-0.70)
[2021-11-22 04:22] LABS: INR 1.1; Prothrombin Time 11.8 Seconds (9.4-12.1)
[2021-11-22] MEDS ORDERED: Saliva Stimulant 44.3ml BOTTLE PO PRN (04:25)
[2021-11-22] MEDS ORDERED: Saline Nasal Spray 44 ML BOTTLE NS PRN (04:25)
[2021-11-22] MEDS: methylPREDNISolone 125 MG/2 ML VIAL IVP SCH ×2 (04:38→12:44)
[2021-11-22] MEDS: *HR* Heparin 5,000 UNIT/ML VIAL SQ SCH ×3 (04:39→22:00)
[2021-11-22 05:35] LABS: BUN/Creatinine Ratio 29 (6-26); Blood Urea Nitrogen 14 mg/dL (8-23); Calcium 8.9 mg/dL (8.6-10.3); Carbon Dioxide 32 mEq/L (23-29); Chloride 97 mEq/L (98-107); Glucose 223 mg/dL (70-105); Magnesium 2.1 mg/dL (1.6-2.6); Osmolality,Calculated 289 (280-300); Phosphorous 3.8 mg/dL (2.7-4.5); Potassium 4.2 mEq/L (3.5-5.1); Sodium 136 mEq/L (136-145); eGFR For African Americans > 60 (> 60); eGFR For Non-African Americans > 60 (> 60)
[2021-11-22] MEDS ORDERED: Pantoprazole 40 MG VIAL IVP SCH (09:00)
[2021-11-22] MEDS: carvediloL 6.25 MG TABLET PO SCH ×2 (09:12→16:11)
[2021-11-22] MEDS: Artificial Tears SOLN 15 ML BOTTLE BOTH EYES SCH ×2 (09:12→22:01)
[2021-11-22] MEDS: Chlorhexidine Rinse 15 ML MOUTHWASH MM SCH ×2 (09:13→22:00)
[2021-11-22] MEDS: amLODIPine 5 MG TABLET PO SCH (09:13)
[2021-11-22] MEDS: Multivit/Ca/Min/Fe/FA 1 TAB TABLET PO SCH (09:13)
[2021-11-22] MEDS: Lactobacillus 1 EACH CAP.SPRINK PO SCH ×2 (09:13→22:00)
[2021-11-22] MEDS: Meropenem 1,000 MG in 0.9 % Sodium Chloride 20 ML IVP SCH ×2 (09:14→16:11)
[2021-11-22] MEDS ORDERED: methylPREDNISolone 125 MG/2 ML VIAL IVP SCH (13:15)
[2021-11-22] MEDS ORDERED: Ipratropium/Albuterol Neb 3 ML ONE (15:41)
[2021-11-22] MEDS ORDERED: Tobramycin for INHALATION 300 MG/5 ML AMPUL IH SCH (18:00)
[2021-11-22] MEDS: Tobramycin for INHALATION 300 MG/5 ML AMPUL IH SCH (20:39)
[2021-11-22] MEDS: MethylPREDNISolone 40 MG/ML VIAL IVP SCH (22:00)
[2021-11-22] MEDS ORDERED: Cefepime HCl 1,000 MG in 0.9 % Sodium Chloride 10 ML IVP ONE (22:52)
[2021-11-23] MEDS: Meropenem 1,000 MG in 0.9 % Sodium Chloride 20 ML IVP SCH ×3 (00:29→16:07)
[2021-11-23 01:51] LABS: Basophils % 0.1 %; Hematocrit 37.2 % (35.3-44.9); Hemoglobin 11.7 g/dL (11.5-15.4); Immature Granulocytes % 0.7 % (0-4); Lymphocytes # 0.3 K/mcL (0.6-4.6); Lymphocytes % 2.1 %; Mean Corpuscular HGB Conc 31.5 g/dL (31.6-35.5); Mean Corpuscular Hemoglobin 28.9 pg (28.0-33.3); Mean Corpuscular Volume 91.9 fL (83.0-100.0); Mean Platelet Volume 9.8 fL (9.4-12.4); Monocytes # 0.6 K/mcL (0.0-1.3); Monocytes % 3.7 %; Neutrophils # 13.8 K/mcL (1.6-8.9); Platelet Count 355 K/mcL (140-400); Red Blood Count 4.05 M/mcL (3.82-4.97); Red Cell Distribution Width 14.2 % (11.5-14.5); Segmented Neutrophils % 93.4 %; White Blood Count 14.8 K/mcL (4.3-11.1)
[2021-11-23 02:09] LABS: BUN/Creatinine Ratio 30 (6-26); Blood Urea Nitrogen 13 mg/dL (8-23); Calcium 8.9 mg/dL (8.6-10.3); Carbon Dioxide 37 mEq/L (23-29); Chloride 98 mEq/L (98-107); Glucose 173 mg/dL (70-105); Osmolality,Calculated 292 (280-300); Potassium 4.1 mEq/L (3.5-5.1); Sodium 139 mEq/L (136-145); eGFR For African Americans > 60 (> 60); eGFR For Non-African Americans > 60 (> 60)
[2021-11-23] MEDS: Ipratropium/Albuterol Neb 3 ML IH SCH ×6 (04:03→23:10)
[2021-11-23] MEDS: *HR* Heparin 5,000 UNIT/ML VIAL SQ SCH ×3 (05:26→21:11)
[2021-11-23] MEDS: Acetylcysteine 10% 2 ML INHSOL IH SCH ×3 (07:22→23:10)
[2021-11-23] MEDS: Tobramycin for INHALATION 300 MG/5 ML AMPUL IH SCH ×2 (07:22→22:55)
[2021-11-23] MEDS: MethylPREDNISolone 40 MG/ML VIAL IVP SCH ×2 (09:21→21:11)
[2021-11-23] MEDS: Chlorhexidine Rinse 15 ML MOUTHWASH MM SCH ×2 (09:21→21:09)
[2021-11-23] MEDS: Lactobacillus 1 EACH CAP.SPRINK PO SCH ×2 (09:22→21:09)
[2021-11-23] MEDS: Artificial Tears SOLN 15 ML BOTTLE BOTH EYES SCH (09:22)
[2021-11-23] MEDS: carvediloL 6.25 MG TABLET PO SCH ×2 (09:22→16:07)
[2021-11-23] MEDS: amLODIPine 5 MG TABLET PO SCH (09:22)
[2021-11-23] MEDS: Multivit/Ca/Min/Fe/FA 1 TAB TABLET PO SCH (09:22)
[2021-11-23 14:37] LABS: Quantiferon Mitogen minus NIL 3.79 IU/mL
[2021-11-24] MEDS: Artificial Tears SOLN 15 ML BOTTLE BOTH EYES SCH ×3 (00:03→20:55)
[2021-11-24] MEDS: Meropenem 1,000 MG in 0.9 % Sodium Chloride 20 ML IVP SCH ×3 (00:03→16:52)
[2021-11-24 03:43] LABS: Basophils % 0.1 %; Hematocrit 36.5 % (35.3-44.9); Hemoglobin 11.6 g/dL (11.5-15.4); Immature Granulocytes % 0.6 % (0-4); Lymphocytes # 0.3 K/mcL (0.6-4.6); Lymphocytes % 2.7 %; Mean Corpuscular HGB Conc 31.8 g/dL (31.6-35.5); Mean Corpuscular Hemoglobin 29.3 pg (28.0-33.3); Mean Corpuscular Volume 92.2 fL (83.0-100.0); Mean Platelet Volume 9.4 fL (9.4-12.4); Monocytes # 0.4 K/mcL (0.0-1.3); Monocytes % 3.2 %; Neutrophils # 10.2 K/mcL (1.6-8.9); Platelet Count 342 K/mcL (140-400); Red Blood Count 3.96 M/mcL (3.82-4.97); Red Cell Distribution Width 14.2 % (11.5-14.5); Segmented Neutrophils % 93.4 %; White Blood Count 10.9 K/mcL (4.3-11.1)
[2021-11-24] MEDS: Ipratropium/Albuterol Neb 3 ML IH SCH ×5 (03:52→22:58)
[2021-11-24 04:02] LABS: BUN/Creatinine Ratio 31 (6-26); Blood Urea Nitrogen 14 mg/dL (8-23); Calcium 8.4 mg/dL (8.6-10.3); Carbon Dioxide 40 mEq/L (23-29); Chloride 99 mEq/L (98-107); Glucose 142 mg/dL (70-105); Osmolality,Calculated 295 (280-300); Potassium 4.1 mEq/L (3.5-5.1); Sodium 141 mEq/L (136-145); eGFR For African Americans > 60 (> 60); eGFR For Non-African Americans > 60 (> 60)
[2021-11-24] MEDS: *HR* Heparin 5,000 UNIT/ML VIAL SQ SCH ×3 (05:44→20:56)
[2021-11-24] MEDS: Acetylcysteine 10% 2 ML INHSOL IH SCH ×3 (07:33→22:58)
[2021-11-24] MEDS: Tobramycin for INHALATION 300 MG/5 ML AMPUL IH SCH (08:28)
[2021-11-24] MEDS: Multivit/Ca/Min/Fe/FA 1 TAB TABLET PO SCH (08:51)
[2021-11-24] MEDS: carvediloL 6.25 MG TABLET PO SCH ×2 (08:51→16:51)
[2021-11-24] MEDS: amLODIPine 5 MG TABLET PO SCH (08:51)
[2021-11-24] MEDS: Lactobacillus 1 EACH CAP.SPRINK PO SCH ×2 (08:51→20:55)
[2021-11-24] MEDS: MethylPREDNISolone 40 MG/ML VIAL IVP SCH ×2 (08:52→20:55)
[2021-11-24] MEDS: Chlorhexidine Rinse 15 ML MOUTHWASH MM SCH ×2 (10:47→20:55)
[2021-11-24 16:36] LABS: ABG Base Excess 15 mEq/L (-2 to 3); ABG HCO3 43 mEq/L (21-27); ABG Oxygen Saturation 91 % (95-98); ABG PCO2 65 mmHg (35-45); ABG PH 7.44 pH Units (7.32-7.45); ABG PO2 62 mmHg (85-104); ABG TCO2 45 mEq/L (20-26)
[2021-11-25] MEDS: Meropenem 1,000 MG in 0.9 % Sodium Chloride 20 ML IVP SCH ×3 (00:52→16:53)
[2021-11-25 02:40] LABS: A.galactomannan Ag Index 0.03
[2021-11-25 03:14] LABS: Basophils % 0.1 %; Hemoglobin 12.2 g/dL (11.5-15.4); Immature Granulocytes % 0.6 % (0-4); Lymphocytes # 0.3 K/mcL (0.6-4.6); Lymphocytes % 3.3 %; Mean Corpuscular HGB Conc 31.3 g/dL (31.6-35.5); Mean Corpuscular Hemoglobin 28.6 pg (28.0-33.3); Mean Corpuscular Volume 91.3 fL (83.0-100.0); Mean Platelet Volume 9.2 fL (9.4-12.4); Monocytes # 0.3 K/mcL (0.0-1.3); Monocytes % 3.5 %; Neutrophils # 8.6 K/mcL (1.6-8.9); Platelet Count 327 K/mcL (140-400); Red Blood Count 4.27 M/mcL (3.82-4.97); Red Cell Distribution Width 14.2 % (11.5-14.5); Segmented Neutrophils % 92.5 %; White Blood Count 9.3 K/mcL (4.3-11.1)
[2021-11-25 03:39] LABS: BUN/Creatinine Ratio 32 (6-26); Blood Urea Nitrogen 12 mg/dL (8-23); Calcium 8.6 mg/dL (8.6-10.3); Chloride 98 mEq/L (98-107); Glucose 139 mg/dL (70-105); Osmolality,Calculated 292 (280-300); Potassium 4.3 mEq/L (3.5-5.1); Sodium 140 mEq/L (136-145); eGFR For African Americans > 60 (> 60); eGFR For Non-African Americans > 60 (> 60)
[2021-11-25 03:43] LABS: Carbon Dioxide 41 mEq/L (23-29)
[2021-11-25] MEDS: *HR* Heparin 5,000 UNIT/ML VIAL SQ SCH ×3 (05:44→21:30)
[2021-11-25] MEDS: Ipratropium/Albuterol Neb 3 ML IH SCH ×3 (07:47→23:46)
[2021-11-25] MEDS: Chlorhexidine Rinse 15 ML MOUTHWASH MM SCH ×2 (09:14→21:28)
[2021-11-25] MEDS: amLODIPine 5 MG TABLET PO SCH (09:15)
[2021-11-25] MEDS: carvediloL 6.25 MG TABLET PO SCH ×2 (09:15→16:53)
[2021-11-25] MEDS: Lactobacillus 1 EACH CAP.SPRINK PO SCH ×2 (09:15→21:29)
[2021-11-25] MEDS: MethylPREDNISolone 40 MG/ML VIAL IVP SCH ×2 (09:15→21:30)
[2021-11-25] MEDS: Multivit/Ca/Min/Fe/FA 1 TAB TABLET PO SCH (09:15)
[2021-11-25] MEDS: Artificial Tears SOLN 15 ML BOTTLE BOTH EYES SCH ×2 (09:25→21:28)
[2021-11-25] MEDS: Nystatin SUSP 5 ML UD.LIQ BC SCH ×3 (14:35→21:29)
[2021-11-26] MEDS: Meropenem 1,000 MG in 0.9 % Sodium Chloride 20 ML IVP SCH ×4 (00:29→23:30)
[2021-11-26 03:08] LABS: BUN/Creatinine Ratio 37 (6-26); Blood Urea Nitrogen 17 mg/dL (8-23); Calcium 8.5 mg/dL (8.6-10.3); Carbon Dioxide 39 mEq/L (23-29); Chloride 98 mEq/L (98-107); Glucose 138 mg/dL (70-105); Osmolality,Calculated 296 (280-300); Potassium 4.4 mEq/L (3.5-5.1); Sodium 141 mEq/L (136-145); eGFR For African Americans > 60 (> 60); eGFR For Non-African Americans > 60 (> 60)
[2021-11-26] MEDS: *HR* Heparin 5,000 UNIT/ML VIAL SQ SCH ×3 (05:07→21:29)
[2021-11-26] MEDS: Ipratropium/Albuterol Neb 3 ML IH SCH ×3 (07:22→15:32)
[2021-11-26] MEDS: MethylPREDNISolone 40 MG/ML VIAL IVP SCH (07:49)
[2021-11-26] MEDS: Chlorhexidine Rinse 15 ML MOUTHWASH MM SCH ×2 (07:49→21:29)
[2021-11-26] MEDS: Nystatin SUSP 5 ML UD.LIQ BC SCH ×5 (07:49→21:29)
[2021-11-26] MEDS: Artificial Tears SOLN 15 ML BOTTLE BOTH EYES SCH ×2 (07:50→21:28)
[2021-11-26] MEDS: amLODIPine 5 MG TABLET PO SCH (07:51)
[2021-11-26] MEDS: carvediloL 6.25 MG TABLET PO SCH ×2 (07:51→15:37)
[2021-11-26] MEDS: Lactobacillus 1 EACH CAP.SPRINK PO SCH ×2 (07:51→21:29)
[2021-11-26] MEDS: Multivit/Ca/Min/Fe/FA 1 TAB TABLET PO SCH (07:51)
[2021-11-26 15:39] LABS: Adenovirus Not Detected (Not Detect); Bordetella Pertussis Not Detected (Not Detect); Chlamydophila pneumoniae Not Detected (Not Detect); Coronavirus 229E Not Detected (Not Detect); Coronavirus HKU1 Not Detected (Not Detect); Coronavirus NL63 Not Detected (Not Detect); Coronavirus OC43 Not Detected (Not Detect); Human Metapneumovirus Not Detected (Not Detect); Human Rhinovirus/Enterovirus Not Detected (Not Detect); Influenza A Subtype 2009 H1 Not Detected (Not Detect); Influenza B Not Detected (Not Detect); Mycoplasma pneumoniae Not Detected (Not Detect); Parainfluenza Virus 1 Not Detected (Not Detect); Parainfluenza Virus 2 Not Detected (Not Detect); Parainfluenza Virus 3 Not Detected (Not Detect); Parainfluenza Virus 4 Not Detected (Not Detect); Respiratory Syncytial Virus Not Detected (Not Detect)
[2021-11-26 15:43] LABS: SARS-CoV-2 DETECTED (Not Detect)
[2021-11-26] MEDS ORDERED: Acetylcysteine 10% 2 ML INHSOL IH SCH (16:00)
[2021-11-26] MEDS: dexAMETHasone 4 MG TABLET PO SCH (16:50)
[2021-11-26] MEDS: Ipratropium 1 PUFF INHALER IH SCH ×2 (19:49→22:59)
[2021-11-27 03:15] LABS: Albumin 2.9 g/dL (3.5-5.7); Bilirubin,Indirect 0.3 mg/dL (0.0-1.0); Bilirubin,Total 0.3 mg/dL (0.3-1.0); Globulin 2.9 g/dL (2.4-3.5); Total Protein 5.8 g/dL (6.4-8.9)
[2021-11-27] MEDS: Ipratropium 1 PUFF INHALER IH SCH ×6 (04:13→23:19)
[2021-11-27] MEDS: *HR* Heparin 5,000 UNIT/ML VIAL SQ SCH ×3 (05:50→21:44)
[2021-11-27] MEDS: Meropenem 1,000 MG in 0.9 % Sodium Chloride 20 ML IVP SCH ×3 (08:27→23:42)
[2021-11-27] MEDS: amLODIPine 5 MG TABLET PO SCH (08:27)
[2021-11-27] MEDS: Lactobacillus 1 EACH CAP.SPRINK PO SCH ×2 (08:27→21:43)
[2021-11-27] MEDS: carvediloL 6.25 MG TABLET PO SCH ×2 (08:27→16:26)
[2021-11-27] MEDS: dexAMETHasone 4 MG TABLET PO SCH (08:27)
[2021-11-27] MEDS: Multivit/Ca/Min/Fe/FA 1 TAB TABLET PO SCH (08:27)
[2021-11-27] MEDS: Nystatin SUSP 5 ML UD.LIQ BC SCH ×4 (08:30→21:43)
[2021-11-27] MEDS: Artificial Tears SOLN 15 ML BOTTLE BOTH EYES SCH ×2 (08:32→22:00)
[2021-11-27] MEDS: Chlorhexidine Rinse 15 ML MOUTHWASH MM SCH ×2 (08:32→21:43)
[2021-11-27] MEDS ORDERED: predniSONE 20 MG TABLET PO SCH (09:00)
[2021-11-27 10:09] LABS: Basophils % 0.1 %; Hematocrit 41.6 % (35.3-44.9); Hemoglobin 12.8 g/dL (11.5-15.4); Immature Granulocytes % 0.7 % (0-4); Lymphocytes # 0.5 K/mcL (0.6-4.6); Lymphocytes % 4.7 %; Mean Corpuscular HGB Conc 30.8 g/dL (31.6-35.5); Mean Corpuscular Hemoglobin 28.5 pg (28.0-33.3); Mean Corpuscular Volume 92.7 fL (83.0-100.0); Mean Platelet Volume 9.7 fL (9.4-12.4); Monocytes # 0.6 K/mcL (0.0-1.3); Monocytes % 5.3 %; Neutrophils # 9.6 K/mcL (1.6-8.9); Platelet Count 360 K/mcL (140-400); Red Blood Count 4.49 M/mcL (3.82-4.97); Red Cell Distribution Width 14.3 % (11.5-14.5); Segmented Neutrophils % 89.2 %; White Blood Count 10.7 K/mcL (4.3-11.1)
[2021-11-27 10:31] LABS: BUN/Creatinine Ratio 31 (6-26); Blood Urea Nitrogen 15 mg/dL (8-23); Calcium 8.4 mg/dL (8.6-10.3); Carbon Dioxide 40 mEq/L (23-29); Chloride 98 mEq/L (98-107); Glucose 171 mg/dL (70-105); Osmolality,Calculated 297 (280-300); Potassium 3.8 mEq/L (3.5-5.1); Sodium 141 mEq/L (136-145); eGFR For African Americans > 60 (> 60); eGFR For Non-African Americans > 60 (> 60)
[2021-11-27] MEDS ORDERED: Remdesivir 200 MG in 0.9 % Sodium Chloride 100 ML IVPB ONE (16:00)
[2021-11-28 03:08] LABS: Basophils % 0.3 %; Hematocrit 39.8 % (35.3-44.9); Hemoglobin 12.4 g/dL (11.5-15.4); Immature Granulocytes % 1.3 % (0-4); Lymphocytes # 0.9 K/mcL (0.6-4.6); Lymphocytes % 9.8 %; Mean Corpuscular HGB Conc 31.2 g/dL (31.6-35.5); Mean Corpuscular Hemoglobin 28.7 pg (28.0-33.3); Mean Corpuscular Volume 92.1 fL (83.0-100.0); Mean Platelet Volume 9.5 fL (9.4-12.4); Monocytes # 0.7 K/mcL (0.0-1.3); Monocytes % 7.9 %; Platelet Count 340 K/mcL (140-400); Red Blood Count 4.32 M/mcL (3.82-4.97); Red Cell Distribution Width 14.2 % (11.5-14.5); Segmented Neutrophils % 80.7 %; White Blood Count 8.7 K/mcL (4.3-11.1)
[2021-11-28 03:31] LABS: Alanine Aminotransferase 28 Units/L (7-52); Albumin 2.8 g/dL (3.5-5.7); Albumin/Globulin Ratio 0.9 (1.1-2.2); Alkaline Phosphatase 74 Units/L (34-104); Aspartate Amino Transferase 22 Units/L (13-39); BUN/Creatinine Ratio 47 (6-26); Bilirubin,Direct 0.1 mg/dL (0.0-0.2); Bilirubin,Indirect 0.2 mg/dL (0.0-1.0); Bilirubin,Total 0.3 mg/dL (0.3-1.0); Blood Urea Nitrogen 18 mg/dL (8-23); Calcium 8.4 mg/dL (8.6-10.3); Carbon Dioxide 41 mEq/L (23-29); Chloride 97 mEq/L (98-107); Glucose 90 mg/dL (70-105); Osmolality,Calculated 293 (280-300); Potassium 4.2 mEq/L (3.5-5.1); Sodium 141 mEq/L (136-145); Total Protein 5.8 g/dL (6.4-8.9); eGFR For African Americans > 60 (> 60); eGFR For Non-African Americans > 60 (> 60)
[2021-11-28] MEDS: Ipratropium 1 PUFF INHALER IH SCH ×6 (04:14→23:26)
[2021-11-28] MEDS: *HR* Heparin 5,000 UNIT/ML VIAL SQ SCH ×3 (05:17→20:44)
[2021-11-28] MEDS: dexAMETHasone 4 MG TABLET PO SCH (08:46)
[2021-11-28] MEDS: Meropenem 1,000 MG in 0.9 % Sodium Chloride 20 ML IVP SCH ×3 (08:46→23:35)
[2021-11-28] MEDS: Nystatin SUSP 5 ML UD.LIQ BC SCH ×4 (08:46→20:43)
[2021-11-28] MEDS: Chlorhexidine Rinse 15 ML MOUTHWASH MM SCH ×2 (08:46→20:43)
[2021-11-28] MEDS: Lactobacillus 1 EACH CAP.SPRINK PO SCH ×2 (08:47→20:44)
[2021-11-28] MEDS: carvediloL 6.25 MG TABLET PO SCH ×2 (08:47→16:55)
[2021-11-28] MEDS: Multivit/Ca/Min/Fe/FA 1 TAB TABLET PO SCH (08:47)
[2021-11-28] MEDS: amLODIPine 5 MG TABLET PO SCH (08:47)
[2021-11-28] MEDS: Artificial Tears SOLN 15 ML BOTTLE BOTH EYES SCH ×2 (08:50→20:43)
[2021-11-28] MEDS: *HR* Acetylcysteine 20% 600 MG/3 ML ORAL SYRINGE PO SCH ×2 (12:29→20:43)
[2021-11-28] MEDS: Remdesivir 100 MG in 0.9 % Sodium Chloride 100 ML IVPB SCH (15:39)
[2021-11-29] MEDS: Ipratropium 1 PUFF INHALER IH SCH ×6 (04:11→23:07)
[2021-11-29] MEDS: *HR* Heparin 5,000 UNIT/ML VIAL SQ SCH ×3 (05:51→22:54)
[2021-11-29] MEDS: Chlorhexidine Rinse 15 ML MOUTHWASH MM SCH ×2 (09:22→19:40)
[2021-11-29] MEDS: Nystatin SUSP 5 ML UD.LIQ BC SCH ×4 (09:22→19:39)
[2021-11-29] MEDS: Meropenem 1,000 MG in 0.9 % Sodium Chloride 20 ML IVP SCH ×3 (09:23→22:54)
[2021-11-29] MEDS: amLODIPine 5 MG TABLET PO SCH (09:23)
[2021-11-29] MEDS: Artificial Tears SOLN 15 ML BOTTLE BOTH EYES SCH ×2 (09:23→19:41)
[2021-11-29] MEDS: carvediloL 6.25 MG TABLET PO SCH ×2 (09:23→16:11)
[2021-11-29] MEDS: dexAMETHasone 4 MG TABLET PO SCH (09:23)
[2021-11-29] MEDS: Lactobacillus 1 EACH CAP.SPRINK PO SCH ×2 (09:23→19:39)
[2021-11-29] MEDS: Multivit/Ca/Min/Fe/FA 1 TAB TABLET PO SCH (09:23)
[2021-11-29] MEDS: *HR* Acetylcysteine 20% 600 MG/3 ML ORAL SYRINGE PO SCH ×2 (09:32→19:41)
[2021-11-29 10:09] LABS: Hematocrit 40.2 % (35.3-44.9); Hemoglobin 12.6 g/dL (11.5-15.4); Mean Corpuscular HGB Conc 31.3 g/dL (31.6-35.5); Mean Corpuscular Hemoglobin 28.9 pg (28.0-33.3); Mean Corpuscular Volume 92.2 fL (83.0-100.0); Mean Platelet Volume 9.9 fL (9.4-12.4); Platelet Count 316 K/mcL (140-400); Red Blood Count 4.36 M/mcL (3.82-4.97); Red Cell Distribution Width 14.6 % (11.5-14.5); White Blood Count 12.6 K/mcL (4.3-11.1)
[2021-11-29 11:46] LABS: Alanine Aminotransferase 32 Units/L (7-52); Albumin 2.9 g/dL (3.5-5.7); Alkaline Phosphatase 82 Units/L (34-104); Aspartate Amino Transferase 18 Units/L (13-39); BUN/Creatinine Ratio 33 (6-26); Bilirubin,Indirect 0.4 mg/dL (0.0-1.0); Bilirubin,Total 0.4 mg/dL (0.3-1.0); Blood Urea Nitrogen 18 mg/dL (8-23); Calcium 8.4 mg/dL (8.6-10.3); Carbon Dioxide 43 mEq/L (23-29); Chloride 97 mEq/L (98-107); Globulin 2.9 g/dL (2.4-3.5); Glucose 132 mg/dL (70-105); Magnesium 2.2 mg/dL (1.6-2.6); Osmolality,Calculated 292 (280-300); Potassium 4.4 mEq/L (3.5-5.1); Sodium 139 mEq/L (136-145); Total Protein 5.8 g/dL (6.4-8.9); eGFR For African Americans > 60 (> 60); eGFR For Non-African Americans > 60 (> 60)
[2021-11-29] MEDS: Remdesivir 100 MG in 0.9 % Sodium Chloride 100 ML IVPB SCH (16:25)
[2021-11-30] MEDS: Ipratropium 1 PUFF INHALER IH SCH ×6 (04:02→23:18)
[2021-11-30] MEDS: *HR* Heparin 5,000 UNIT/ML VIAL SQ SCH ×3 (05:56→21:37)
[2021-11-30] MEDS: dexAMETHasone 4 MG TABLET PO SCH (09:21)
[2021-11-30] MEDS: carvediloL 6.25 MG TABLET PO SCH ×2 (09:23→16:27)
[2021-11-30] MEDS: Nystatin SUSP 5 ML UD.LIQ BC SCH ×4 (09:23→21:37)
[2021-11-30] MEDS: Lactobacillus 1 EACH CAP.SPRINK PO SCH ×2 (09:23→21:37)
[2021-11-30] MEDS: amLODIPine 5 MG TABLET PO SCH (09:23)
[2021-11-30] MEDS: Multivit/Ca/Min/Fe/FA 1 TAB TABLET PO SCH (09:23)
[2021-11-30] MEDS: Chlorhexidine Rinse 15 ML MOUTHWASH MM SCH ×2 (09:23→21:36)
[2021-11-30] MEDS: Artificial Tears SOLN 15 ML BOTTLE BOTH EYES SCH ×2 (09:24→21:37)
[2021-11-30] MEDS: Meropenem 1,000 MG in 0.9 % Sodium Chloride 20 ML IVP SCH ×2 (09:42→16:20)
[2021-11-30] MEDS: *HR* Acetylcysteine 20% 600 MG/3 ML ORAL SYRINGE PO SCH (11:07)
[2021-11-30] MEDS: Remdesivir 100 MG in 0.9 % Sodium Chloride 100 ML IVPB SCH (16:20)
[2021-12-01] MEDS: Ipratropium 1 PUFF INHALER IH SCH ×6 (03:20→23:38)
[2021-12-01] MEDS: Meropenem 1,000 MG in 0.9 % Sodium Chloride 20 ML IVP SCH ×3 (04:03→17:21)
[2021-12-01 05:13] LABS: Albumin 2.7 g/dL (3.5-5.7); Bilirubin,Indirect 0.3 mg/dL (0.0-1.0); Bilirubin,Total 0.3 mg/dL (0.3-1.0); Globulin 2.7 g/dL (2.4-3.5); Total Protein 5.4 g/dL (6.4-8.9)
[2021-12-01] MEDS: *HR* Heparin 5,000 UNIT/ML VIAL SQ SCH ×3 (06:50→20:53)
[2021-12-01] MEDS: Nystatin SUSP 5 ML UD.LIQ BC SCH ×4 (09:28→20:52)
[2021-12-01] MEDS: *HR* Acetylcysteine 20% 600 MG/3 ML ORAL SYRINGE PO SCH ×3 (09:29→20:52)
[2021-12-01] MEDS: dexAMETHasone 4 MG TABLET PO SCH (09:30)
[2021-12-01] MEDS: carvediloL 6.25 MG TABLET PO SCH ×2 (09:31→16:04)
[2021-12-01] MEDS: amLODIPine 5 MG TABLET PO SCH (09:32)
[2021-12-01] MEDS: Multivit/Ca/Min/Fe/FA 1 TAB TABLET PO SCH (09:32)
[2021-12-01] MEDS: Chlorhexidine Rinse 15 ML MOUTHWASH MM SCH ×2 (09:33→20:52)
[2021-12-01] MEDS: Lactobacillus 1 EACH CAP.SPRINK PO SCH ×2 (09:33→20:53)
[2021-12-01] MEDS: Artificial Tears SOLN 15 ML BOTTLE BOTH EYES SCH ×2 (09:35→21:07)
[2021-12-01] MEDS ORDERED: Iopamidol - 370 500 ML MLS IVP ONE (10:48)
[2021-12-01] MEDS: Remdesivir 100 MG in 0.9 % Sodium Chloride 100 ML IVPB SCH (16:05)
[2021-12-02] MEDS: Meropenem 1,000 MG in 0.9 % Sodium Chloride 20 ML IVP SCH ×3 (01:12→16:00)
[2021-12-02] MEDS: Ipratropium 1 PUFF INHALER IH SCH ×6 (04:36→23:48)
[2021-12-02] MEDS: *HR* Heparin 5,000 UNIT/ML VIAL SQ SCH (06:01)
[2021-12-02] MEDS ORDERED: *HR* Heparin 5,000 UNIT/ML VIAL IVP ONE (07:50)
[2021-12-02] MEDS ORDERED: *HR* Heparin 5,000 UNIT/ML VIAL IVP PRN ×2 (07:50)
[2021-12-02] MEDS ORDERED: Heparin 25,000UNIT/250ML 1/2NS 25,000 UNIT/250 ML IV.SOLN IVC SCH (08:00)
[2021-12-02] MEDS: Chlorhexidine Rinse 15 ML MOUTHWASH MM SCH ×2 (08:59→21:21)
[2021-12-02] MEDS: Nystatin SUSP 5 ML UD.LIQ BC SCH ×4 (08:59→21:21)
[2021-12-02] MEDS: Multivit/Ca/Min/Fe/FA 1 TAB TABLET PO SCH (09:02)
[2021-12-02] MEDS: amLODIPine 5 MG TABLET PO SCH (09:02)
[2021-12-02] MEDS: carvediloL 6.25 MG TABLET PO SCH ×2 (09:02→16:01)
[2021-12-02] MEDS: Lactobacillus 1 EACH CAP.SPRINK PO SCH ×2 (09:02→21:22)
[2021-12-02] MEDS: Artificial Tears SOLN 15 ML BOTTLE BOTH EYES SCH ×2 (09:03→21:21)
[2021-12-02 09:39] LABS: Hematocrit 39.3 % (35.3-44.9); Hemoglobin 12.2 g/dL (11.5-15.4); Mean Corpuscular Hemoglobin 28.6 pg (28.0-33.3); Mean Corpuscular Volume 92.3 fL (83.0-100.0); Mean Platelet Volume 10.4 fL (9.4-12.4); Platelet Count 348 K/mcL (140-400); Red Blood Count 4.26 M/mcL (3.82-4.97); Red Cell Distribution Width 14.7 % (11.5-14.5)
[2021-12-02 09:47] LABS: Heparin anti-factor XA UFH 0.52 IU/mL (0.30-0.70); Prothrombin Time 11.2 Seconds (9.4-12.1)
[2021-12-02] MEDS: *HR* Acetylcysteine 20% 600 MG/3 ML ORAL SYRINGE PO SCH ×2 (12:07→21:21)
[2021-12-02 18:42] LABS: Albumin 2.6 g/dL (3.5-5.7); Bilirubin,Indirect 0.3 mg/dL (0.0-1.0); Bilirubin,Total 0.3 mg/dL (0.3-1.0); Globulin 2.7 g/dL (2.4-3.5); Total Protein 5.3 g/dL (6.4-8.9)
[2021-12-02] MEDS: Apixaban 5 MG TABLET PO SCH (21:22)
[2021-12-03] MEDS: Meropenem 1,000 MG in 0.9 % Sodium Chloride 20 ML IVP SCH ×4 (00:29→23:35)
[2021-12-03] MEDS: Ipratropium 1 PUFF INHALER IH SCH ×6 (04:43→23:20)
[2021-12-03] MEDS: Apixaban 5 MG TABLET PO SCH (08:16)
[2021-12-03] MEDS: Lactobacillus 1 EACH CAP.SPRINK PO SCH ×2 (08:16→20:36)
[2021-12-03] MEDS: Chlorhexidine Rinse 15 ML MOUTHWASH MM SCH ×2 (08:16→20:35)
[2021-12-03] MEDS: Nystatin SUSP 5 ML UD.LIQ BC SCH ×4 (08:17→20:35)
[2021-12-03] MEDS: *HR* Acetylcysteine 20% 600 MG/3 ML ORAL SYRINGE PO SCH ×2 (08:17→23:44)
[2021-12-03] MEDS: amLODIPine 5 MG TABLET PO SCH (08:17)
[2021-12-03] MEDS: Artificial Tears SOLN 15 ML BOTTLE BOTH EYES SCH ×2 (08:17→20:39)
[2021-12-03] MEDS: carvediloL 6.25 MG TABLET PO SCH ×2 (08:18→17:01)
[2021-12-03] MEDS: Multivit/Ca/Min/Fe/FA 1 TAB TABLET PO SCH (08:18)
[2021-12-03] MEDS: dexAMETHasone 4 MG TABLET PO SCH (11:45)
[2021-12-03 17:21] LABS: INR 2.3; Prothrombin Time 25.3 Seconds (9.4-12.1)
[2021-12-03] MEDS ORDERED: Warfarin perPT PO PRN (18:00)
[2021-12-03] MEDS ORDERED: *HR* Warfarin 2.5 MG TABLET PO ONE (18:00)
[2021-12-03] MEDS: *HR* Enoxaparin 60 MG/0.6 ML SYRINGE SQ SCH (20:36)
[2021-12-04 02:37] LABS: Basophils % 0.3 %; Hematocrit 33.3 % (35.3-44.9); Immature Granulocytes % 1.3 % (0-4); Lymphocytes # 0.6 K/mcL (0.6-4.6); Lymphocytes % 5.4 %; Mean Corpuscular HGB Conc 31.8 g/dL (31.6-35.5); Mean Corpuscular Hemoglobin 28.5 pg (28.0-33.3); Mean Corpuscular Volume 89.5 fL (83.0-100.0); Mean Platelet Volume 10.1 fL (9.4-12.4); Monocytes # 0.3 K/mcL (0.0-1.3); Monocytes % 2.7 %; Neutrophils # 9.5 K/mcL (1.6-8.9); Platelet Count 261 K/mcL (140-400); Red Blood Count 3.72 M/mcL (3.82-4.97); Red Cell Distribution Width 14.4 % (11.5-14.5); Segmented Neutrophils % 90.3 %; White Blood Count 10.6 K/mcL (4.3-11.1)
[2021-12-04 02:38] LABS: Hemoglobin 10.6 g/dL (11.5-15.4)
[2021-12-04 02:48] LABS: INR 1.4; Prothrombin Time 15.4 Seconds (9.4-12.1)
[2021-12-04 03:04] LABS: BUN/Creatinine Ratio 64 (6-26); Blood Urea Nitrogen 27 mg/dL (8-23); Calcium 8.6 mg/dL (8.6-10.3); Chloride 94 mEq/L (98-107); Glucose 164 mg/dL (70-105); Osmolality,Calculated 295 (280-300); Potassium 4.2 mEq/L (3.5-5.1); Sodium 138 mEq/L (136-145); eGFR For African Americans > 60 (> 60); eGFR For Non-African Americans > 60 (> 60)
[2021-12-04] MEDS: Ipratropium 1 PUFF INHALER IH SCH ×5 (03:54→20:05)
[2021-12-04 04:44] LABS: Carbon Dioxide 40 mEq/L (23-29)
[2021-12-04] MEDS: *HR* Enoxaparin 60 MG/0.6 ML SYRINGE SQ SCH ×2 (05:22→17:43)
[2021-12-04] MEDS: Lactobacillus 1 EACH CAP.SPRINK PO SCH ×2 (09:33→20:55)
[2021-12-04] MEDS: Meropenem 1,000 MG in 0.9 % Sodium Chloride 20 ML IVP SCH ×3 (09:33→23:15)
[2021-12-04] MEDS: Chlorhexidine Rinse 15 ML MOUTHWASH MM SCH ×2 (09:33→20:55)
[2021-12-04] MEDS: carvediloL 6.25 MG TABLET PO SCH ×2 (09:33→17:43)
[2021-12-04] MEDS: dexAMETHasone 4 MG TABLET PO SCH (09:33)
[2021-12-04] MEDS: Nystatin SUSP 5 ML UD.LIQ BC SCH ×4 (09:33→20:55)
[2021-12-04] MEDS: amLODIPine 5 MG TABLET PO SCH (09:33)
[2021-12-04] MEDS: Artificial Tears SOLN 15 ML BOTTLE BOTH EYES SCH ×2 (09:34→20:56)
[2021-12-04] MEDS: *HR* Acetylcysteine 20% 600 MG/3 ML ORAL SYRINGE PO SCH ×2 (09:34→20:56)
[2021-12-04] MEDS: Multivit/Ca/Min/Fe/FA 1 TAB TABLET PO SCH (09:34)
[2021-12-04] MEDS ORDERED: *HR* Warfarin 2.5 MG TABLET PO ONE (18:00)
[2021-12-05] MEDS: Ipratropium 1 PUFF INHALER IH SCH ×7 (00:21→23:13)
[2021-12-05 03:49] LABS: Basophils % 0.2 %; Hemoglobin 10.1 g/dL (11.5-15.4); Immature Granulocytes % 1.5 % (0-4); Lymphocytes # 0.4 K/mcL (0.6-4.6); Lymphocytes % 4.1 %; Mean Corpuscular HGB Conc 31.6 g/dL (31.6-35.5); Mean Corpuscular Hemoglobin 28.6 pg (28.0-33.3); Mean Corpuscular Volume 90.7 fL (83.0-100.0); Mean Platelet Volume 9.9 fL (9.4-12.4); Monocytes # 0.6 K/mcL (0.0-1.3); Monocytes % 5.9 %; Neutrophils # 9.6 K/mcL (1.6-8.9); Platelet Count 280 K/mcL (140-400); Red Blood Count 3.53 M/mcL (3.82-4.97); Red Cell Distribution Width 14.6 % (11.5-14.5); Segmented Neutrophils % 88.3 %; White Blood Count 10.8 K/mcL (4.3-11.1)
[2021-12-05 03:56] LABS: Prothrombin Time 11.1 Seconds (9.4-12.1)
[2021-12-05 04:12] LABS: BUN/Creatinine Ratio 58 (6-26); Blood Urea Nitrogen 33 mg/dL (8-23); Calcium 8.1 mg/dL (8.6-10.3); Carbon Dioxide 39 mEq/L (23-29); Chloride 97 mEq/L (98-107); Glucose 276 mg/dL (70-105); Osmolality,Calculated 305 (280-300); Potassium 4.3 mEq/L (3.5-5.1); Sodium 139 mEq/L (136-145); eGFR For African Americans > 60 (> 60); eGFR For Non-African Americans > 60 (> 60)
[2021-12-05] MEDS: *HR* Enoxaparin 60 MG/0.6 ML SYRINGE SQ SCH ×2 (05:15→17:28)
[2021-12-05] MEDS: Meropenem 1,000 MG in 0.9 % Sodium Chloride 20 ML IVP SCH ×3 (09:25→23:24)
[2021-12-05] MEDS: *HR* Acetylcysteine 20% 600 MG/3 ML ORAL SYRINGE PO SCH ×2 (09:25→21:41)
[2021-12-05] MEDS: Artificial Tears SOLN 15 ML BOTTLE BOTH EYES SCH ×2 (09:25→21:41)
[2021-12-05] MEDS: Multivit/Ca/Min/Fe/FA 1 TAB TABLET PO SCH (09:26)
[2021-12-05] MEDS: carvediloL 6.25 MG TABLET PO SCH ×2 (09:26→17:24)
[2021-12-05] MEDS: Nystatin SUSP 5 ML UD.LIQ BC SCH ×4 (09:26→21:40)
[2021-12-05] MEDS: Lactobacillus 1 EACH CAP.SPRINK PO SCH ×2 (09:26→21:40)
[2021-12-05] MEDS: Chlorhexidine Rinse 15 ML MOUTHWASH MM SCH ×2 (09:26→21:40)
[2021-12-05] MEDS: amLODIPine 5 MG TABLET PO SCH (09:26)
[2021-12-05] MEDS: dexAMETHasone 4 MG TABLET PO SCH (09:26)
[2021-12-05] MEDS ORDERED: *HR* Warfarin 5 MG TABLET PO ONE (18:00)
[2021-12-05] MEDS: Insulin LISPRO 300 UNITS/3 ML VIAL SUBQ SCH (21:49)
[2021-12-06 02:46] LABS: INR 1.3; Prothrombin Time 14.3 Seconds (9.4-12.1)
[2021-12-06] MEDS: Ipratropium 1 PUFF INHALER IH SCH ×6 (04:55→23:49)
[2021-12-06] MEDS: *HR* Enoxaparin 60 MG/0.6 ML SYRINGE SQ SCH ×2 (05:06→17:43)
[2021-12-06] MEDS: Insulin LISPRO 300 UNITS/3 ML VIAL SUBQ SCH ×4 (07:58→20:45)
[2021-12-06] MEDS: carvediloL 6.25 MG TABLET PO SCH ×2 (08:07→17:00)
[2021-12-06] MEDS: Multivit/Ca/Min/Fe/FA 1 TAB TABLET PO SCH (08:07)
[2021-12-06] MEDS: amLODIPine 5 MG TABLET PO SCH (08:07)
[2021-12-06] MEDS: Lactobacillus 1 EACH CAP.SPRINK PO SCH ×2 (08:07→20:43)
[2021-12-06] MEDS: Meropenem 1,000 MG in 0.9 % Sodium Chloride 20 ML IVP SCH ×2 (08:07→17:00)
[2021-12-06] MEDS: *HR* Acetylcysteine 20% 600 MG/3 ML ORAL SYRINGE PO SCH ×2 (08:08→20:44)
[2021-12-06] MEDS: Artificial Tears SOLN 15 ML BOTTLE BOTH EYES SCH ×2 (08:08→20:42)
[2021-12-06] MEDS: Nystatin SUSP 5 ML UD.LIQ BC SCH ×4 (08:08→20:42)
[2021-12-06] MEDS: Chlorhexidine Rinse 15 ML MOUTHWASH MM SCH ×2 (08:08→20:42)
[2021-12-06] MEDS ORDERED: Furosemide 20 MG/2 ML VIAL IVP ONE (11:12)
[2021-12-06 13:10] LABS: Estimated Average Glucose 148 mg/dl; Hemoglobin A1C 6.8 %
[2021-12-06] MEDS ORDERED: *HR* Warfarin 5 MG TABLET PO ONE (18:00)
[2021-12-07 04:16] LABS: INR 2.5; Prothrombin Time 27.5 Seconds (9.4-12.1)
[2021-12-07] MEDS: Ipratropium 1 PUFF INHALER IH SCH ×2 (04:17→07:21)
[2021-12-07] MEDS: *HR* Enoxaparin 60 MG/0.6 ML SYRINGE SQ SCH ×2 (05:28→18:21)
[2021-12-07] MEDS: Chlorhexidine Rinse 15 ML MOUTHWASH MM SCH ×2 (07:56→22:19)
[2021-12-07] MEDS: Nystatin SUSP 5 ML UD.LIQ BC SCH ×4 (07:57→22:18)
[2021-12-07] MEDS: Insulin LISPRO 300 UNITS/3 ML VIAL SUBQ SCH ×4 (07:58→22:19)
[2021-12-07] MEDS: *HR* Acetylcysteine 20% 600 MG/3 ML ORAL SYRINGE PO SCH ×2 (07:58→22:18)
[2021-12-07] MEDS: Multivit/Ca/Min/Fe/FA 1 TAB TABLET PO SCH (07:58)
[2021-12-07] MEDS: amLODIPine 5 MG TABLET PO SCH (07:58)
[2021-12-07] MEDS: carvediloL 6.25 MG TABLET PO SCH ×2 (07:58→18:22)
[2021-12-07] MEDS: Lactobacillus 1 EACH CAP.SPRINK PO SCH ×2 (07:58→22:18)
[2021-12-07] MEDS: Artificial Tears SOLN 15 ML BOTTLE BOTH EYES SCH ×2 (07:59→22:20)
[2021-12-07 09:41] LABS: BUN/Creatinine Ratio 47 (6-26); Blood Urea Nitrogen 20 mg/dL (8-23); C-Reactive Protein 43 mg/L (Less than 10); Calcium 8.2 mg/dL (8.6-10.3); Carbon Dioxide 38 mEq/L (23-29); Chloride 92 mEq/L (98-107); Glucose 84 mg/dL (70-105); Osmolality,Calculated 280 (280-300); Potassium 4.1 mEq/L (3.5-5.1); Sodium 134 mEq/L (136-145); eGFR For African Americans > 60 (> 60); eGFR For Non-African Americans > 60 (> 60)
[2021-12-07] MEDS: Ipratropium/Albuterol Neb 3 ML IH SCH ×4 (11:08→23:17)
[2021-12-07 11:50] LABS: Hematocrit 34.3 % (35.3-44.9); Hemoglobin 10.9 g/dL (11.5-15.4); Mean Corpuscular HGB Conc 31.8 g/dL (31.6-35.5); Mean Corpuscular Hemoglobin 28.5 pg (28.0-33.3); Mean Corpuscular Volume 89.8 fL (83.0-100.0); Mean Platelet Volume 10.1 fL (9.4-12.4); Platelet Count 259 K/mcL (140-400); Red Blood Count 3.82 M/mcL (3.82-4.97); Red Cell Distribution Width 15.3 % (11.5-14.5); White Blood Count 12.6 K/mcL (4.3-11.1)
[2021-12-08] MEDS: Ipratropium/Albuterol Neb 3 ML IH SCH ×4 (03:43→15:39)
[2021-12-08] MEDS: *HR* Enoxaparin 60 MG/0.6 ML SYRINGE SQ SCH (05:26)
[2021-12-08 07:43] LABS: INR 2.4; Prothrombin Time 26.9 Seconds (9.4-12.1)
[2021-12-08] MEDS: Insulin LISPRO 300 UNITS/3 ML VIAL SUBQ SCH ×3 (08:50→16:44)
[2021-12-08] MEDS: amLODIPine 5 MG TABLET PO SCH (09:06)
[2021-12-08] MEDS: Artificial Tears SOLN 15 ML BOTTLE BOTH EYES SCH (09:06)
[2021-12-08] MEDS: Lactobacillus 1 EACH CAP.SPRINK PO SCH (09:06)
[2021-12-08] MEDS: Multivit/Ca/Min/Fe/FA 1 TAB TABLET PO SCH (09:06)
[2021-12-08] MEDS: carvediloL 6.25 MG TABLET PO SCH ×2 (09:06→16:49)
[2021-12-08] MEDS: *HR* Acetylcysteine 20% 600 MG/3 ML ORAL SYRINGE PO SCH (09:07)
[2021-12-08] MEDS: Nystatin SUSP 5 ML UD.LIQ BC SCH (09:07)
[2021-12-08] MEDS: Chlorhexidine Rinse 15 ML MOUTHWASH MM SCH (09:07)
[2021-12-08 12:29] VITALS: BP 109/58; PULSE 103; TEMP 98.8; O2SAT 93
[2021-12-08] MEDS ORDERED: *HR* Warfarin 1 MG TABLET PO ONE (18:00)
== END 2021-12-08 17:36 | disposition other institution (70) | DRG 871 ==
LOC: 2ANU 18:56 → EMEROOARM 18:56 → SUATTDRO 23:16 → 2ANU 11-22 00:27 → SUATTDRO 11-22 18:35 → 2ANU 11-26 16:05
PROVIDERS: ADMIT Internal Medicine; ATTEND Internal Medicine